=== PATIENT | male | born 1970 | race Caucasian/White ===

== ENCOUNTER 2016-05-20 10:46 | Inpatient (IN) | payer SELFPAY ==
[~2016-05-20] VITALS: Ht 160 cm; Wt 104.7 kg
[~2016-05-20 10:46] MED LIST: /TAMS4CA OR; ALLO300T; AMLO10TA PO; AMLO5TAB2 PO; ASPI81TA85 PO; BIAXINXL PO; BYST2.5T PO; BYST2.5T2 PO; BYSTOLIC; CLARITIN10 PO; CORE6.25 PO; GLUC500T PO; HCTZ25 PO; HYDR25TAB PO; LEVO500T PO; LIPI20TA PO; MOTRIN800 PO; NIZORALSHA TOPICAL; OXYC-208 PO; PRIN10TA PO; Potassium Citrate; SUDAFED PO; TOPROL25 PO; TYLE325T5 PO; VICO5TAB PO; XANA0.25 PO; ZYRTEC PO; potassium citrate
[2016-05-20] MEDS ORDERED: CARVedilol 6.25 MG TAB As Ordered ONE (11:20)
[2016-05-20 11:24] LABS: BASO # 0.1 K/mm3 (0.0-0.2); BASO % 1.3 % (0.0-1.0); EOS # 0.6 K/mm3 (0.0-0.50); LARGE UNSTAINED CELL # 0.2 K/mm3 (0.0-0.4); LARGE UNSTAINED CELL % 1.8 % (0.0-4.0); LYMPH # 2.6 K/mm3 (1.5-4.5); LYMPH % 25.6 % (24.0-44.0); MEAN CORPUSCULAR HEMOGLOBIN 31.7 pg (27.0-33.0); MEAN CORPUSCULAR VOLUME 86.6 fl (80.0-96.0); MONO # 0.5 K/mm3 (0.0-0.8); MONO % 4.8 % (0.0-5.0); NEUTROPHILS # 5.8 K/mm3 (1.8-7.7); NEUTROPHILS % 60.5 % (36.0-66.0); PLATELET COUNT, AUTOMATED 183 k/mm3 (150-450); RED CELL DISTRIBUTION WIDTH 12.9 % (11.5-14.5); WHITE BLOOD COUNT 9.6 K/mm3 (4.0-10.0)
--- NOTE | 2016-05-20 11:33 | REP ---
Chest one-view HISTORY: Shortness of breath Comparison: 02/08/2016 The lungs are clear. The cardiac silhouette is enlarged. The pulmonary vasculature is normal in appearance. Impression: Cardiomegaly. Signed by Lyndon Rene MD 05/20/2016 11:24 A
[2016-05-20] MEDS ORDERED: VALSARTAN 80 MG TAB (DIOVAN) As Ordered ONE (11:38)
[2016-05-20 11:43] LABS: ANION GAP 9 MEQ/L (8-16); BLOOD UREA NITROGEN 14 MG/DL (7-18); CALCIUM LEVEL 9.1 MG/DL (8.5-10.1); CARBON DIOXIDE LEVEL 26 MEQ/L (21-32); CHLORIDE LEVEL 105 MEQ/L (98-107); CREATININE FOR GFR 0.98 MG/DL (0.70-1.30); GLOMERULAR FILTRATION RATE > 60.0 (>60); GLUCOSE, FASTING 245 MG/DL (70-105); POTASSIUM SERUM 4.2 MEQ/L (3.5-5.1); SODIUM LEVEL 140 MEQ/L (136-145)
[2016-05-20 12:00] LABS: MEAN CORPUSCULAR HGB CONC 36.1 g/dl (32.0-36.5)
[2016-05-20] MEDS ORDERED: ISOVUE-370 76% 100ML VIAL (Q9967) As Ordered ONE (12:13)
--- NOTE | 2016-05-20 12:37 | REP ---
Clinical: Acute chest pain and shortness of breath. Technique: Axial contrast enhanced images from the thoracic inlet to the upper abdomen using 100 ml Isovue 370 intravenous contrast material with coronal and sagittal re-formations. Findings: Satisfactory enhancement of the pulmonary vasculature is achieved and no filling defects are identified to suggest pulmonary embolus. Thoracic aorta is normal caliber without aneurysm or dissection. Heart and pericardium are normal. Bilateral lung hawkins are well aerated and clear without acute pulmonary parenchymal consolidation or atelectasis. No nodule or mass lesion. No pleural effusion/reaction. No pneumothorax. No adenopathy. Impression: No evidence for pulmonary embolus. No acute pleuroparenchymal or mediastinal process. Signed by Uche Silva MD 05/20/2016 12:29 P
[2016-05-20] MEDS ORDERED: IPRATROPIUM 0.5MG/ALBUTEROL 2.5MG INH SOL UD 3ML (DUONEB)(J7620) As Ordered ONE (13:28)
[2016-05-20] MEDS ORDERED: ASPIRIN 81 MG CHEW TABLET As Ordered ONE (15:56)
[2016-05-20] MEDS ORDERED: CINN500C9 PO (16:26)
[2016-05-20] MEDS ORDERED: CARV25TA PO (16:26)
[2016-05-20] MEDS ORDERED: GLUC1000 PO (16:26)
[2016-05-20] MEDS ORDERED: VALS1TAB46 PO (16:26)
[2016-05-20] MEDS ORDERED: HYDR25TAB PO (16:26)
[2016-05-20] MEDS ORDERED: SPIR25TA2 PO (16:26)
[2016-05-20] MEDS ORDERED: ONDANSETRON 4MG/2ML VIAL (J2405) IV PRN (17:00)
[2016-05-20] MEDS ORDERED: BISACODYL 5 MG TAB PO PRN (17:00)
[2016-05-20] MEDS ORDERED: MORPHINE 2 MG/ML 1ML SYRINGE IV PRN (17:00)
[2016-05-20] MEDS ORDERED: GLUCOSE 4 GM CHEW TABLET PO PRN (17:15)
[2016-05-20] MEDS ORDERED: GLUCAGON FOR INJ 1 MG VIAL (J1610) SC PRN (17:15)
[2016-05-20] MEDS ORDERED: DEXTROSE 50% 50 ML SYRINGE IV PRN (17:15)
[2016-05-20] MEDS ORDERED: MORPHINE 2 MG/ML 1ML SYRINGE As Ordered ONE (17:44)
[2016-05-20] MEDS ORDERED: LABETALOL HCL 100 MG/20 ML VIAL As Ordered ONE (17:44)
[2016-05-20] MEDS ORDERED: LABETALOL 100 MG TAB As Ordered ONE (17:44)
--- NOTE | 2016-05-20 17:58 | HPE ---
DATE OF ADMISSION: 05/20/2016 PRIMARY CARE PHYSICIAN: None. Patient has lost his medical insurance. DYNAMICS AX DEVELOPER: Dr. Cipriano Li CHIEF COMPLAINT: Shortness of breath. HOSPITALIST INPATIENT ATTENDING: Dr. Carlos Flores HISTORY OF PRESENT ILLNESS: A 46-year-old male with history of congestive heart failure, ejection fraction of 40%. Follows with Dr. Li. Coronary artery disease (CAD), myocardial infarction (SD), diabetes, hypertension, nephrolithiasis, osteoarthritis, bilateral knees, obesity, presented to the emergency room with complaint of shortness of breath. Patient has had cough and cold symptoms for the past 2 months on and off, felt congested, and woke at 1 a.m. this morning when he complained of chest tightness described as a bear hug, accompanied with some diaphoresis and shortness of breath. No medications were taken at home. Patient checked his blood pressure and was 191/121. He had no headaches. No changes in vision. He felt better when he leaned forward on a chair. No epigastric pain, nausea, or vomiting. At 6:30 in the morning, patient rechecked his blood pressure, and it was again elevated, prompting him to present to the emergency room (ER) this morning at 10:46 a.m. He had taken his spironolactone, valsartan, and Coreg. Similar episode in 2014 while he was on vacation and returned emergently for evaluation. Chest x-ray at that time showed pulmonary edema, cardiomegaly. He was found to have hypertensive cardiomyopathy. Ejection fraction was initially 26%, improved with medications to 39%. Dr. Li had recommended automatic implantable cardioverter-defibrillator (AICD) placement. Stress test was negative times two. He was supposed to have a followup around [facility] this past 2015, but patient had no insurance. 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 In the emergency room patient was found to have a blood pressure 182/112. Hospitalist service was called for admission for hypertensive urgency. Due to complaints of chest tightness and tachycardia, CT of chest was performed, which was negative for pulmonary embolism. No other acute pleural, parenchymal, mediastinal process. Lungs are otherwise clear. PAST MEDICAL HISTORY: 1. Congestive heart failure (CHF), ejection fraction 40%. 2. Hypertension. 3. Obstructive sleep apnea. 4. Obesity. 5. Left ventricular hypertrophy with severe systolic/diastolic dysfunction. 6. Pulmonary hypertension. Ejection fraction of 35-40% on 08/24/2014, PAST SURGICAL HISTORY: None. 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 No medical benefits. No recreational drug use. . Full code. FAMILY HISTORY: Mother and father with CAD, SD, diabetes, hypertension, amputations. Mother , age 56. Father , age 67. REVIEW OF SYSTEMS: Per history of present illness (HPI). A 12-point system otherwise negative. PHYSICAL EXAMINATION: Blood pressure 192/112, pulse 118, sinus rhythm, respiratory rate 18, temperature 98.6, 99% on room air. 103.42 kg, 5 feet 3 inches tall. GENERAL: Awake, alert, oriented times three. Pupils are round and reactive to light and accommodation. Extraocular muscles are intact. No jugular venous distention. No thyromegaly. Moist mucous membranes. LUNGS: Clear to auscultation. No wheezes, rales, or rhonchi. HEART: S1, S2, sinus rhythm . ABDOMEN: [place], soft, nontender, nondistended. EXTREMITIES: Trace pitting edema. White count 9.6, hemoglobin 15, hematocrit 42, platelet count 183, 60% neutrophils. Sodium 140, potassium 4.2, chloride 105, bicarbonate 26, BUN 14, creatinine 0.98 , glucose 245. A1c is pending. Lactic acid 1.7. Calcium 9.1. Total CK 95, MB fraction 3.1. Troponin 0.1. BNP of 399. Two sets of blood cultures negative. CT chest: No acute cardiopulmonary process. No pulmonary embolism (PE). EKG: Sinus tachycardia. Ventricular rate of 111. Nonspecific ST-T changes. ASSESSMENT AND PLAN: A 46-year-old male with a history of diabetes, hypertension, hypertensive heart disease, systolic/diastolic heart failure, ejection fraction (EF) of 35-40% on 08/12/[address] Li. Has lost his medical insurance. Nephrolithiasis, obesity, myocardial infarction (SD), osteoarthritis bilaterally , presented to the emergency room with worsening shortness of breath, found to have hypertensive urgency. Patient will be admitted as an inpatient for two midnights , assigned to hospitalist, Dr. Carlos Flores. CURRENT ISSUES: 1. Hypertensive urgency. Patient will be placed on labetalol. Continue on spironolactone, Valsartan. 2. Shortness of breath secondary to hypertensive urgency. 3. Pulmonary embolism (PE) on CT chest study. Cycle cardiac markers every 6 hours. Monitor for acute coronary syndrome, worsening symptoms. No prior history of smoking. No evidence of hypercoagulable state. 4. Hypertensive heart disease with history of congestive heart failure, systolic and diastolic dysfunction, EF of 35%, compensated. The patient has had two negative stress tests. Usually follows with Dr. Li. Patient will be continued on spironolactone, Valsartan. Patient has had negative stress test. Will start on aspirin due to diabetes. 5. Type 2 diabetes. Check A1c. Sliding scale for now. Since patient has received IV contrast dye, will hold off on patient's metformin. Put on sliding scale with coverage. Consistent-carbohydrate diet, no added salt. 6. Deep vein thrombosis (DVT) prophylaxis with Lovenox. MTDD
[2016-05-20 18:14] VITALS: BP 151/94
[2016-05-20 18:30] VITALS: BP 165/106
--- NOTE | 2016-05-20 18:37 | EDDOCDS ---
Physician Documentation [facility] Name: Zhou Grubbs Age: 46 yrs Sex: Male : 1970 Arrival Date: 05/20/2016 Time: 10:46 Bed 13 Private MD: No Pcp Disposition: 05/20/16 15:51 Hospitalization ordered by Gissell Chavez for Inpatient Admission. Preliminary diagnosis is Dyspnea. - Bed requested for M ICU. - Status is Inpatient Admission. mk4 - Condition is Stable. - Problem is new. - Symptoms are unchanged. Historical: - Allergies: Compazinecan't breathe; - Home Meds: 1. metformin 500 mg Oral Tb24 1 tab 2 times per day (Last dose: 05/19/2016) 2. spironolactone 25 mg Oral tab 0.5 tab once daily (Last dose: 05/19/2016) 3. valsartan 80 mg oral tab 1 tab 2 times per day (Last dose: 05/19/2016) 4. carvedilol 25 mg oral tab 1 tab 2 times per day (Last dose: 05/19/2016) - PMHx: Hypertension; Kidney stones; CHF; Myocardial infarction; - PSHx: none; - Social history: Smoking status: Patient states was never smoker of tobacco. No barriers to communication noted, The patient speaks fluent Georgian. - Family history: Not pertinent. - : The pt / caregiver states he / she is not on anticoagulants. Home medication list is obtained from the patient. - Exposure Risk Screening:: None identified. Vital Signs: 05/20 10:48 BP 192 / 112; Pulse 118; Resp 18; Temp 98.6(O); Pulse Ox 99% on R/A; Weight 103.42 kg / ct3 228 lbs (R); Height 5 ft. 3 in. (160.02 cm) (R); Pain 7/10; 10:48 BP 188 / 113 LA Sitting (auto/lg); ct3 11:23 BP 165 / 110 (auto/); mk4 11:23 Pulse 106 MON; Pulse Ox 96% ; mk4 11:29 BP 170 / 118 (auto/); mk4 11:29 Pulse 102 MON; Pulse Ox 96% ; mk4 11:39 BP 171 / 114 (auto/); mk4 11:39 Pulse 106 MON; Pulse Ox 95% ; mk4 11:44 BP 163 / 122 (auto/); mk4 11:44 Pulse 104 MON; Pulse Ox 98% ; mk4 12:14 BP 142 / 99 (auto/); mk4 12:14 Pulse 98 MON; Pulse Ox 96% ; mk4 12:29 BP 128 / 78 (auto/); mk4 12:29 Pulse 94 MON; Pulse Ox 96% ; mk4 12:44 BP 128 / 82 (auto/); mk4 12:44 Pulse 92 MON; mk4 12:59 BP 130 / 83 (auto/); mk4 12:59 Pulse 94 MON; Pulse Ox 95% ; mk4 13:14 BP 138 / 92 (auto/); mk4 13:14 Pulse 90 MON; Pulse Ox 94% ; mk4 13:29 BP 134 / 88 (auto/); mk4 13:29 Pulse 92 MON; Pulse Ox 94% ; mk4 13:44 BP 125 / 85 (auto/); mk4 13:44 Pulse 94 MON; Pulse Ox 95% ; mk4 13:59 BP 141 / 80 (auto/); mk4 13:59 Pulse 92 MON; mk4 14:05 BP 125 / 80; jrd 14:13 Pulse 100 MON; mk4 14:14 BP 142 / 92 (auto/); mk4 14:29 BP 143 / 86 (auto/); mk4 14:29 Pulse 98 MON; mk4 14:44 Pulse 98 MON; mk4 14:44 BP 142 / 89 (auto/); mk4 14:59 BP 142 / 82 (auto/); mk4 14:59 Pulse 96 MON; mk4 15:14 BP 140 / 79 (auto/); mk4 15:14 Pulse 96 MON; mk4 15:29 BP 144 / 95 (auto/); mk4 15:29 Pulse 94 MON; mk4 15:44 BP 147 / 100 (auto/); mk4 15:44 Pulse 96 MON; mk4 15:59 BP 141 / 84 (auto/); mk4 15:59 Pulse 92 MON; Pulse Ox 95% ; mk4 16:14 BP 135 / 82 (auto/); mk4 16:14 Pulse 92 MON; Pulse Ox 94% ; mk4 16:29 BP 151 / 98 (auto/); mk4 16:29 Pulse 96 MON; Pulse Ox 93% ; mk4 16:44 BP 151 / 99 (auto/); mk4 16:44 Pulse 96 MON; Pulse Ox 94% ; mk4 16:49 BP 164 / 105 (auto/); mk4 16:51 Pulse 96 MON; Pulse Ox 94% ; mk4 16:59 BP 154 / 102 (auto/); mk4 16:59 Pulse 92 MON; Pulse Ox 95% ; mk4 17:14 BP 153 / 110 (auto/); mk4 17:14 Pulse 96 MON; Pulse Ox 97% ; mk4 17:29 Pulse 96 MON; Pulse Ox 96% ; mk4 17:29 BP 159 / 108 (auto/); mk4 17:44 BP 152 / 107 (auto/); mk4 17:44 Pulse 92 MON; Pulse Ox 95% ; mk4 17:59 BP 154 / 109 (auto/); mk4 17:59 Pulse 90 MON; Pulse Ox 96% ; mk4 10:48 Body Mass Index 40.39 (103.42 kg, 160.02 cm) ct3 MDM: 11:00 -Blood Culture (Adults Only), peripheral from different site, or from device/port/PICC sd1 etc. if present ordered. 11:00 Chief Engineer Research/Pulse Ox/q 15 min VS ordered. sd1 11:00 IV Saline Lock ordered. sd1 11:00 Oxygen at 4L/Min NC or Home dosage ordered. sd1 11:00 Rhythm Strip to chart ordered. sd1 11:01 B-Type Natiuretic Peptide Ordered. EDMS 11:01 Basic Metabolic Profile Ordered. EDMS 11:01 CBC with Diff Ordered. EDMS 11:01 Cardiac Injury Profile Ordered. EDMS 11:01 Troponin Ordered. EDMS 11:01 -Blood Culture Ordered. EDMS 11:01 Chest, 1 View Ordered. EDMS 11:01 ECG WITH READING ER PHYS+CARDIAG ordered. EDMS 11:07 Lactic Acid (Lucia tube on ice) Ordered. EDMS 11:08 carvedilol 25 mg PO once ordered. sd1 11:08 Losartan 80 mg PO once ordered. sd1 11:15 -Blood Culture (Adults Only), peripheral from different site, or from device/port/PICC lbd etc. if present complete. 11:19 BLOOD CULTURES Ordered. EDMS 11:37 Valsartan 80 mg PO once ordered. dy 12:08 Albuterol-Ipratropium 3 ml Inhalation once ordered. sd1 12:08 B-Type Natiuretic Peptide Reviewed. sd1 12:08 Basic Metabolic Profile Reviewed. sd1 12:08 CBC with Diff Reviewed. sd1 12:08 Troponin Reviewed. sd1 12:08 Cardiac Injury Profile Reviewed. sd1 12:08 Lactic Acid (Lucia tube on ice) Reviewed. sd1 12:10 CT Chest Angio R/O PE Ordered. EDMS 12:49 [facility] Payment Agreement was scanned into [employer] and attached to record. jp5 12:49 Financial registration complete. jp5 13:48 Recheck B/P ordered. sd1 13:48 Chest, 1 View Reviewed. sd1 13:48 CT Chest Angio R/O PE Reviewed. sd1 13:49 Redraw CIP &Troponin (put time in details section) ordered. sd1 13:51 Redraw CIP &Troponin (put time in details section) complete. jlf 13:53 CARDIAC INJURY PROFILE Ordered. EDMS 13:53 TROPONIN Ordered. EDMS 15:19 TROPONIN Reviewed. sd1 15:19 CARDIAC INJURY PROFILE Reviewed. sd1 15:48 Aspirin Chewable Tablet 81 mg PO once ordered. sd1 15:50 REGULAR+DIET ordered. EDMS 17:04 Admission / Observation Status ordered. EDMS 17:04 CONSISTENT CARBOHYDRATES ordered. EDMS 17:04 NO ADDED SALT DIET ordered. EDMS 17:06 ELECTROCARDIOGRAM ADULT ordered. EDMS 17:07 CARDIAC MARKER PANEL Ordered. EDMS 17:07 HEMOGLOBIN A1C Ordered. EDMS 17:41 Written Provider Order was scanned into [employer] and attached to record. lbd 17:56 morphine 2 mg IVP once ordered. mk4 17:56 Labetalol 10 mg IVP at bolus once over 2 mins ordered. mk4 17:57 Labetalol 100 mg PO once ordered. mk4 18:18 ECHOCARD,DOPPLER/COLOR FLOW ordered. EDMS Administered Medications: 11:25 Drug: carvedilol 25 mg [carvedilol 6.25 mg tablet (4 tabs)] Route: PO; dy 11:37 Not Given (wrong drug ordered): Losartan 80 mg PO once dy 11:40 Drug: Valsartan 80 mg [valsartan 80 mg tablet (1 tabs)] Route: PO; mk4 13:31 Drug: Albuterol-Ipratropium 3 ml [ipratropium-albuterol 0.5 mg-3 mg(2.5 mg base)/3 mL js11 nebulization soln (3 mL)] Route: Inhalation; 15:58 Drug: Aspirin 81 mg [aspirin 81 mg chewable tablet (1 tabs)] Route: PO; mk4 17:56 Drug: morphine 2 mg [morphine 2 mg/mL intravenous cartridge (1 mL)] Route: IVP; Site: mk4 left antecubital; 17:56 Drug: Labetalol 10 mg [labetalol 5 mg/mL intravenous solution (2 mL)] Route: IVP; Rate: mk4 bolus; Infused Over: 2 mins; Site: left antecubital; 17:57 Drug: Labetalol 100 mg [labetalol 100 mg tablet (1 tabs)] Route: PO; mk4 Signatures: Dispatcher [employer] EDMS Lesly Collins MD MD sd1 Gloria Mathews, Lead Former Unit lbd Ritchie Moreira RN Cipriano Rodrigues RN RN dy King, Margaret, RN RN mk4 Meli Browning, DIRECTOR COMMUNITY CENTER DIRECTOR [facility]ENTER Renee Catalan jp5 Patrick Gutierrez, RN Dillon Villanueva mts [id number] The chart was reviewed and I authenticate all verbal orders and agree with the evaluation and treatment provided.Corrections: (The following items were deleted from the chart) 17:08 17:04 CARDIAC MARKER PANEL ordered. EDMD EDMS Attachments: 12:49 [facility] Payment Agreement jp5 17:41 Written Provider Order lbd MTDD
--- NOTE | 2016-05-20 18:37 | EDDOCDS ---
Nurse's Notes [facility] Name: Zhou Grubbs Age: 46 yrs Sex: Male : 1970 Arrival Date: 05/20/2016 Time: 10:46 Bed 13 Private MD: No Pcp Diagnosis: Dyspnea Presentation: 05/20 10:55 Presenting complaint: Patient states: Increased difficulty breathing starting at 1am dwg today. Difficulty taking a deep breath. Adult Sepsis Screening: The patient does not have new or worsening altered mentation. Patient's respiratory rate is less than 22. Systolic blood pressure is greater than 100. Patient has a qSOFA score of 0- Negative Sepsis Screen. Suicide/Homicide risk assessment- the patient denies having any suicidal and/or homicidal ideations and does not present with any other emotional, behavioral or mental health complaints. Status: Patient is not a appliance servicer or dependent. Transition of care: patient was not received from another setting of care. 10:55 Acuity: NHUNG Level 3 dwg 10:55 Method Of Arrival: Wheelchair dwg Triage Assessment: 10:58 General: Appears in no apparent distress. Pain: Pain currently is 6 out of 10 on a pain dwg scale. HIV screening NA for this visit Offered previously. Historical: - Allergies: Compazinecan't breathe; - Home Meds: 1. metformin 500 mg Oral Tb24 1 tab 2 times per day (Last dose: 05/19/2016) 2. spironolactone 25 mg Oral tab 0.5 tab once daily (Last dose: 05/19/2016) 3. valsartan 80 mg oral tab 1 tab 2 times per day (Last dose: 05/19/2016) 4. carvedilol 25 mg oral tab 1 tab 2 times per day (Last dose: 05/19/2016) - PMHx: Hypertension; Kidney stones; CHF; Myocardial infarction; - PSHx: none; - Social history: Smoking status: Patient states was never smoker of tobacco. No barriers to communication noted, The patient speaks fluent Kyrgyz. - Family history: Not pertinent. - : The pt / caregiver states he / she is not on anticoagulants. Home medication list is obtained from the patient. - Exposure Risk Screening:: None identified. Screenin:00 Screening information is obtained from the patient. Fall risk: No risks identified. mk4 Assistance ADL's: requires no assistance with activities of daily living. Abuse/DV Screen: The patient / caregiver reports he/she is: not in a situation that causes fear, pain or injury. Nutritional screening: No deficits noted. Advance Directives: Currently, there is no health care proxy. There is no active DNR order. There is no living will. There is no Power of Telecommunications Line Installer. Advance directive information has not previously been placed in an [facility] medical record. Further advance directive information is declined. home support is adequate. Assessment: 11:00 General: Appears distressed, Behavior is anxious. Cardiovascular: No deficits noted. mk4 Chest pain states he had a brief episode of chest pain at 0100 lasting about an hour denies chest pain now. Respiratory: Airway is patent Respiratory effort is even, labored, Respiratory pattern is regular, Breath sounds with wheezes expiratory. 11:55 Reassessment: Patient states feeling better. Patient states symptoms have improved. mk4 General: family at bedside. Respiratory: Airway is patent Respiratory effort is even, Respiratory pattern is regular, Breath sounds with wheezes expiratory. 13:10 Neurological: Level of Consciousness is awake, alert. Cardiovascular: Chest pain is mk4 denied. Respiratory: Airway is patent Respiratory effort is even. 14:16 General: Appears. Respiratory: Airway is patent Respiratory effort is even, unlabored, mk4 Respiratory pattern is regular. Derm: Skin is intact, is healthy with good turgor, Skin is pink, warm & dry. 14:43 General: Appears comfortable. mk4 15:58 General: Appears in no apparent distress, comfortable. Cardiovascular: Chest pain is mk4 denied. Respiratory: Airway is patent Respiratory effort is even, unlabored, Respiratory pattern is regular. 16:27 General: Appears in no apparent distress, comfortable, Behavior is cooperative, mk4 pleasant, quiet. Neurological: Level of Consciousness is awake, alert. Respiratory: Airway is patent Respiratory effort is even, unlabored, labored. 17:40 General: Appears in no apparent distress, comfortable, Behavior is cooperative. mk4 18:18 General: Appears in no apparent distress, comfortable, Behavior is cooperative. mk4 Neurological: Level of Consciousness is awake, alert. Respiratory: Reports shortness of breath at rest. Vital Signs: 10:48 BP 192 / 112; Pulse 118; Resp 18; Temp 98.6(O); Pulse Ox 99% on R/A; Weight 103.42 kg ct3 (R); Height 5 ft. 3 in. (160.02 cm) (R); Pain 7/10; 10:48 BP 188 / 113 LA Sitting (auto/lg); ct3 11:23 BP 165 / 110 (auto/); mk4 11:23 Pulse 106 MON; Pulse Ox 96% ; mk4 11:29 BP 170 / 118 (auto/); mk4 11:29 Pulse 102 MON; Pulse Ox 96% ; mk4 11:39 BP 171 / 114 (auto/); mk4 11:39 Pulse 106 MON; Pulse Ox 95% ; mk4 11:44 BP 163 / 122 (auto/); mk4 11:44 Pulse 104 MON; Pulse Ox 98% ; mk4 12:14 BP 142 / 99 (auto/); mk4 12:14 Pulse 98 MON; Pulse Ox 96% ; mk4 12:29 BP 128 / 78 (auto/); mk4 12:29 Pulse 94 MON; Pulse Ox 96% ; mk4 12:44 BP 128 / 82 (auto/); mk4 12:44 Pulse 92 MON; mk4 12:59 BP 130 / 83 (auto/); mk4 12:59 Pulse 94 MON; Pulse Ox 95% ; mk4 13:14 BP 138 / 92 (auto/); mk4 13:14 Pulse 90 MON; Pulse Ox 94% ; mk4 13:29 BP 134 / 88 (auto/); mk4 13:29 Pulse 92 MON; Pulse Ox 94% ; mk4 13:44 BP 125 / 85 (auto/); mk4 13:44 Pulse 94 MON; Pulse Ox 95% ; mk4 13:59 BP 141 / 80 (auto/); mk4 13:59 Pulse 92 MON; mk4 14:05 BP 125 / 80; jrd 14:13 Pulse 100 MON; mk4 14:14 BP 142 / 92 (auto/); mk4 14:29 BP 143 / 86 (auto/); mk4 14:29 Pulse 98 MON; mk4 14:44 Pulse 98 MON; mk4 14:44 BP 142 / 89 (auto/); mk4 14:59 BP 142 / 82 (auto/); mk4 14:59 Pulse 96 MON; mk4 15:14 BP 140 / 79 (auto/); mk4 15:14 Pulse 96 MON; mk4 15:29 BP 144 / 95 (auto/); mk4 15:29 Pulse 94 MON; mk4 15:44 BP 147 / 100 (auto/); mk4 15:44 Pulse 96 MON; mk4 15:59 BP 141 / 84 (auto/); mk4 15:59 Pulse 92 MON; Pulse Ox 95% ; mk4 16:14 BP 135 / 82 (auto/); mk4 16:14 Pulse 92 MON; Pulse Ox 94% ; mk4 16:29 BP 151 / 98 (auto/); mk4 16:29 Pulse 96 MON; Pulse Ox 93% ; mk4 16:44 BP 151 / 99 (auto/); mk4 16:44 Pulse 96 MON; Pulse Ox 94% ; mk4 16:49 BP 164 / 105 (auto/); mk4 16:51 Pulse 96 MON; Pulse Ox 94% ; mk4 16:59 BP 154 / 102 (auto/); mk4 16:59 Pulse 92 MON; Pulse Ox 95% ; mk4 17:14 BP 153 / 110 (auto/); mk4 17:14 Pulse 96 MON; Pulse Ox 97% ; mk4 17:29 Pulse 96 MON; Pulse Ox 96% ; mk4 17:29 BP 159 / 108 (auto/); mk4 17:44 BP 152 / 107 (auto/); mk4 17:44 Pulse 92 MON; Pulse Ox 95% ; mk4 17:59 BP 154 / 109 (auto/); mk4 17:59 Pulse 90 MON; Pulse Ox 96% ; mk4 10:48 Body Mass Index 40.39 (103.42 kg, 160.02 cm) ct3 Vitals: 10:48 Log In Time: May 20, 2016 at 10:46. ct3 10:48 RN notified that patient meets Red Flag criteria. ct3 ED Course: 10:47 Patient visited by Irlanda Block PCA. ct3 10:47 Patient moved to Waiting ct3 10:48 No Pcp is Private Physician. ct3 10:56 Triage Initiated dwg 10:59 Patient moved to 13 dw 11:00 The patient / caregiver is instructed regarding the plan of care and ED course. mk4 11:00 bus driver/monitor on. Pulse ox on. NIBP on. mk4 11:00 No procedures done that require assistance. mk4 11:02 Lesly Collins MD is Attending Physician. sd1 11:02 Patient visited by Lesly Collins MD. sd1 11:15 Inserted saline lock: 18 gauge in left antecubital area and blood collected. The dy patient tolerated the procedure well. 11:17 Patient visited by Meli Browning PCA. jlf 11:17 Lactic Acid (Lucia tube on ice) Sent. dy 11:17 -Blood Culture Sent. dy 11:17 B-Type Natiuretic Peptide Sent. dy 11:17 Basic Metabolic Profile Sent. dy 11:17 CBC with Diff Sent. dy 11:17 Cardiac Injury Profile Sent. dy 11:17 Troponin Sent. dy 11:18 EKG done. (by ED staff). Reviewed by Lesly Collins MD. jlf 11:55 Patient visited by Celi Wynn RN. mk4 12:20 Chest, 1 View Returned. EDMS 12:31 Patient visited by Celi Wynn RN. mk4 12:49 [facility] Payment Agreement was scanned into [employer] and attached to record. jp5 13:06 Patient visited by Meli Browning PCA. jlf 13:16 CT Chest Angio R/O PE Returned. EDMS 13:39 Patient visited by Celi Wynn RN. mk4 14:04 Patient visited by Meli Browning PCA. jlf 14:05 Patient visited by Escobar Austin PCA. jrd 14:32 Patient visited by Meli Browning PCA. jlf 15:15 Patient visited by Celi Wynn RN. mk4 15:50 Gissell Chavez is Hospitalizing Provider. sd1 17:41 Written Provider Order was scanned into [employer] and attached to record. lbd Administered Medications: 11:25 Drug: carvedilol 25 mg [carvedilol 6.25 mg tablet (4 tabs)] Route: PO; dy 11:37 Not Given (wrong drug ordered): Losartan 80 mg PO once dy 11:40 Drug: Valsartan 80 mg [valsartan 80 mg tablet (1 tabs)] Route: PO; mk4 13:31 Drug: Albuterol-Ipratropium 3 ml [ipratropium-albuterol 0.5 mg-3 mg(2.5 mg base)/3 mL nebulization soln (3 mL)] Route: Inhalation; 15:58 Drug: Aspirin 81 mg [aspirin 81 mg chewable tablet (1 tabs)] Route: PO; mk4 17:56 Drug: morphine 2 mg [morphine 2 mg/mL intravenous cartridge (1 mL)] Route: IVP; Site: mk4 left antecubital; 17:56 Drug: Labetalol 10 mg [labetalol 5 mg/mL intravenous solution (2 mL)] Route: IVP; Rate: mk4 bolus; Infused Over: 2 mins; Site: left antecubital; 17:57 Drug: Labetalol 100 mg [labetalol 100 mg tablet (1 tabs)] Route: PO; mk4 RT: 13:31 Initial Med Neb Given as ordered Patient was instructed and evaluated on procedure [id number] Patient tolerated procedure well without adverse effect. Respiratory: Breath sounds are diminished bilaterally. Order Results: Lab Order: B-Type Natiuretic Peptide; SPEC'M 05/20/16 11:15 Test: BRAIN NATRIURETIC PEPTIDE; Value: 399; Range: <100; Abnormal: Above high normal; Units: PG/ML; Status: F Lab Order: Basic Metabolic Profile; SPEC'M 05/20/16 11:15 Test: GLUCOSE, FASTING; Value: 245; Range: 70-105; Abnormal: Above high normal; Units: MG/DL; Status: F Test: BLOOD UREA NITROGEN; Value: 14; Range: 7-18; Units: MG/DL; Status: F Test: CREATININE FOR GFR; Value: 0.98; Range: 0.70-1.30; Units: MG/DL; Status: F Test: GLOMERULAR FILTRATION RATE; Value: > 60.0; Range: >60; Status: F Test: SODIUM LEVEL; Value: 140; Range: 136-145; Units: MEQ/L; Status: F Test: POTASSIUM SERUM; Value: 4.2; Range: 3.5-5.1; Units: MEQ/L; Status: F Test: CHLORIDE LEVEL; Value: 105; Range: 98-107; Units: MEQ/L; Status: F Test: CARBON DIOXIDE LEVEL; Value: 26; Range: 21-32; Units: MEQ/L; Status: F Test: ANION GAP; Value: 9; Range: 8-16; Units: MEQ/L; Status: F Test: CALCIUM LEVEL; Value: 9.1; Range: 8.5-10.1; Units: MG/DL; Status: F Test Note: ; Units are mL/min/1.73 m2 Chronic Kidney Disease Staging per NKF: Stage I & II GFR >=60 Normal to Mildly Decreased Stage III GFR 30-59 Moderately Decreased Stage IV GFR 15-29 Severely Decreased Stage V GFR <15 Very Little GFR Left ESRD GFR <15 on OFFICE NURSE PRACTITIONER Lab Order: CBC with Diff; SPEC'M 05/20/16 11:15 Test: WHITE BLOOD COUNT; Value: 9.6; Range: 4.0-10.0; Units: K/mm3; Status: F Test: RED BLOOD COUNT; Value: 4.92; Range: 4.30-6.10; Units: M/mm3; Status: F Test: HEMOGLOBIN; Value: 15.6; Range: 14.0-18.0; Units: g/dl; Status: F Test: HEMATOCRIT; Value: 42.6; Range: 42.0-52.0; Units: %; Status: F Test: MEAN CORPUSCULAR VOLUME; Value: 86.6; Range: 80.0-96.0; Units: fl; Status: F Test: MEAN CORPUSCULAR HEMOGLOBIN; Value: 31.7; Range: 27.0-33.0; Units: pg; Status: F Test: MEAN CORPUSCULAR HGB CONC; Value: 36.1; Range: 32.0-36.5; Units: g/dl; Status: F Test: RED CELL DISTRIBUTION WIDTH; Value: 12.9; Range: 11.5-14.5; Units: %; Status: F Test: PLATELET COUNT, AUTOMATED; Value: 183; Range: 150-450; Units: k/mm3; Status: F Test: NEUTROPHILS %; Value: 60.5; Range: 36.0-66.0; Units: %; Status: F Test: LYMPH %; Value: 25.6; Range: 24.0-44.0; Units: %; Status: F Test: MONO %; Value: 4.8; Range: 0.0-5.0; Units: %; Status: F Test: EOS %; Value: 6.0; Range: 0.0-3.0; Abnormal: Above high normal; Units: %; Status: F Test: BASO %; Value: 1.3; Range: 0.0-1.0; Abnormal: Above high normal; Units: %; Status: F Test: LARGE UNSTAINED CELL %; Value: 1.8; Range: 0.0-4.0; Units: %; Status: F Test: NEUTROPHILS #; Value: 5.8; Range: 1.8-7.7; Units: K/mm3; Status: F Test: LYMPH #; Value: 2.6; Range: 1.5-4.5; Units: K/mm3; Status: F Test: MONO #; Value: 0.5; Range: 0.0-0.8; Units: K/mm3; Status: F Test: EOS #; Value: 0.6; Range: 0.0-0.50; Abnormal: Above high normal; Units: K/mm3; Status: F Test: BASO #; Value: 0.1; Range: 0.0-0.2; Units: K/mm3; Status: F Test: LARGE UNSTAINED CELL #; Value: 0.2; Range: 0.0-0.4; Units: K/mm3; Status: F Lab Order: Cardiac Injury Profile; SPEC'M 05/20/16 11:15 Test: CPK CREATINE PHOSPHOKINASE; Value: 111; Range: 39-308; Units: U/L; Status: F Test: CK-MB VALUE MASS; Value: 3.5; Range: 0.0-3.6; Units: NG/ML; Status: F Test: MB/CK RELATIVE INDEX; Value: 3.15; Range: < OR =4; Status: F Test Note: ; DIAGNOSIS CRITERIA MMB ng/ml Relative Index (RI) NON-AMI < or = 5 N/A LUCIA ZONE > 5 < or = 4 AMI > 5 > 4 Lab Order: Troponin; SPEC'M 05/20/16 11:15 Test: TROPONIN I; Value: 0.20; Range: < 0.10; Abnormal: Above high normal; Units: NG/ML; Status: F Test Note: ; Troponin I Reference Interval for IPS Group LOCI: 99th Percentile= 0.00-0.045 ng/ml Risk Stratification: <= 0.10 ng/ml Decreased Risk for Adverse Clinical Events. 0.10-1.50 ng/ml Increased Risk for Adverse Clinical Events. Evaluation of additional criterion and/or repeat testing in 2-6 hours is suggested to rule out myocardial damage. >= 1.50 ng/ml Indicative of Myocardial Injury. Lab Order: Lactic Acid (Lucia tube on ice); SPEC'M 05/20/16 11:15 Test: LACTIC ACID LEVEL, LACTATE; Value: 1.7; Range: 0.4-2.0; Units: MMOL/L; Status: F Lab Order: CARDIAC INJURY PROFILE; SPEC'M 05/20/16 14:01 Test: CPK CREATINE PHOSPHOKINASE; Value: 95; Range: 39-308; Units: U/L; Status: F Test: CK-MB VALUE MASS; Value: 3.1; Range: 0.0-3.6; Units: NG/ML; Status: F Test: MB/CK RELATIVE INDEX; Value: 3.26; Range: < OR =4; Status: F Test Note: ; DIAGNOSIS CRITERIA MMB ng/ml Relative Index (RI) NON-AMI < or = 5 N/A LUCIA ZONE > 5 < or = 4 AMI > 5 > 4 Lab Order: TROPONIN; SPEC'M 05/20/16 14:01 Test: TROPONIN I; Value: 0.19; Range: < 0.10; Abnormal: Above high normal; Units: NG/ML; Status: F Test Note: ; Troponin I Reference Interval for IPS Group LOCI: 99th Percentile= 0.00-0.045 ng/ml Risk Stratification: <= 0.10 ng/ml Decreased Risk for Adverse Clinical Events. 0.10-1.50 ng/ml Increased Risk for Adverse Clinical Events. Evaluation of additional criterion and/or repeat testing in 2-6 hours is suggested to rule out myocardial damage. >= 1.50 ng/ml Indicative of Myocardial Injury. Radiology Order: Chest, 1 View Test: Chest, 1 View REASON FOR EXAMINATION: Shortness of Breath; Chest one-view; ; HISTORY: Shortness of breath; ; Comparison: 02/08/2016; ; The lungs are clear. The cardiac silhouette is enlarged. The pulmonary; vasculature is normal in appearance.; ; Impression: Cardiomegaly.; ; ; Signed by; Lyndon Rene MD 05/20/2016 11:24 A; Radiology Order: CT Chest Angio R/O PE Test: CT Chest Angio R/O PE REASON FOR EXAMINATION: Shortness of Breath; Clinical: Acute chest pain and shortness of breath.; ; Technique: Axial contrast enhanced images from the thoracic inlet to the upper; abdomen using 100 ml Isovue 370 intravenous contrast material with coronal and; sagittal re-formations.; ; Findings: Satisfactory enhancement of the pulmonary vasculature is achieved and; no filling defects are identified to suggest pulmonary embolus. Thoracic aorta; is normal caliber without aneurysm or dissection. Heart and pericardium are; normal. Bilateral lung hawkins are well aerated and clear without acute pulmonary; parenchymal consolidation or atelectasis. No nodule or mass lesion. No pleural; effusion/reaction. No pneumothorax. No adenopathy.; ; Impression:; No evidence for pulmonary embolus.; No acute pleuroparenchymal or mediastinal process.; ; ; Signed by; Uche Silva MD 05/20/2016 12:29 P; Outcome: 15:51 Decision to Hospitalize by Provider. sd1 18:06 Discharge Assessment: Patient awake, alert and oriented x 3. No cognitive and/or [facility] functional deficits noted. Patient verbalized understanding of disposition instructions. Patient awake and alert. Condition: good Condition: stable. 18:07 Discharge Assessment: patient administered narcotics - yes. Patient was admitted to the [address] or transferred to another facility. The following High Risk Discharge criteria are identified: None. CT Study completed. 18:18 Admission hand-off: Report called to shital in ICU. Property :Personal belongings [facility] accompany Pt. 18:35 Patient left the ED. [facility] Signatures: Dispatcher [employer] EDMS Lesly Collins MD MD sd1 Gloria Mathews, Division Plant Engineer Unit lbd Ritchie Moreira RN RN dwg Youngs, David, RN RN Irlanda Marrero, HOT STAMP OPERATOR HOT STAMP OPERATOR ct3 Dillon Busch js11 Celi Wynn RN RN mk4 Meli Browning, HOT STAMP OPERATOR HOT STAMP OPERATOR jlf Escobar Austin, HOT STAMP OPERATOR HOT STAMP OPERATOR Renee Poe jp5 Corrections: (The following items were deleted from the chart) 17:43 17:41 General: Appears mk4 mk4 MTDD
[2016-05-20] MEDS ORDERED: SODIUM CHLORIDE NASAL 0.65% SPRAY BTL (OCEAN) PRN (18:45)
[2016-05-20] MEDS ORDERED: FUROSEMIDE 40 MG/4 ML VIAL (J1940) IV ONE (18:45)
[2016-05-20] MEDS: HumaLOG INSULIN (NovoLOG) PER UNIT SC SCH ×2 (18:50→20:43)
[2016-05-20] MEDS: hydroCHLOROthiazide 25 MG TAB PO SCH (18:51)
[2016-05-20] MEDS: ENOXAPARIN 40 MG/0.4 ML SYRINGE (J1650) SC SCH (18:51)
[2016-05-20] MEDS: SPIRONOLACTONE 25 MG TAB PO SCH (18:51)
[2016-05-20 20:00] VITALS: BP 139/91
--- NOTE | 2016-05-20 20:00 | ECGEPIP ---
Stationary ECG Study [facility] - ED Test Date: 2016-05-20 Pat Name: DAVE FALLON Department: Room: - Gender: M Critical Power Technician: mag : 1970 Requested By: Lesly Collins Order Number: [id number] Reading MD: Lesly Collins Measurements Intervals [place] Rate: 111 P: 43 SC: 149 QRS: -3 QRSD: 85 T: 10 QT: 303 QTc: 412 Interpretive Statements SINUS TACHYCARDIA NONSPECIFIC ST & T-WAVE ABNORMALITY ABNORMAL RHYTHM ECG DELAYED R PROGESSION LVH ?PRIOR INFERIOR WI Electronically Signed On 05-20-2016 19:59:51 EST by Lesly Collins
[2016-05-20] MEDS: VALSARTAN 80 MG TAB (DIOVAN) PO SCH (20:43)
[2016-05-20] MEDS ORDERED: CARVedilol 12.5 MG TAB PO SCH (21:00)
[2016-05-20] MEDS ORDERED: OXYMETAZOLINE NASAL SPRAY (AFRIN) PRN (21:00)
[2016-05-20 21:45] VITALS: BP 142/83
[2016-05-20] MEDS: LORazepam 0.5 MG TAB PO PRN (21:46)
[2016-05-20] MEDS: LABETALOL 100 MG TAB PO SCH (21:46)
[2016-05-20 23:42] VITALS: BP 129/61
[2016-05-21] VITALS (7 sets, daily range): BP systolic 121–168; BP diastolic 74–84
[2016-05-21] MEDS: LABETALOL 100 MG TAB PO SCH ×2 (05:14→13:48)
[2016-05-21 05:39] LABS: MEAN CORPUSCULAR HEMOGLOBIN 32.1 pg (27.0-33.0); MEAN CORPUSCULAR VOLUME 89.2 fl (80.0-96.0); RED CELL DISTRIBUTION WIDTH 12.4 % (11.5-14.5); WHITE BLOOD COUNT 7.3 K/mm3 (4.0-10.0)
[2016-05-21 06:07] LABS: ANION GAP 10 MEQ/L (8-16); BLOOD UREA NITROGEN 17 MG/DL (7-18); CALCIUM LEVEL 8.4 MG/DL (8.5-10.1); CARBON DIOXIDE LEVEL 29 MEQ/L (21-32); CHLORIDE LEVEL 99 MEQ/L (98-107); CREATININE FOR GFR 0.98 MG/DL (0.70-1.30); GLOMERULAR FILTRATION RATE > 60.0 (>60); GLUCOSE, FASTING 206 MG/DL (70-105); POTASSIUM SERUM 3.8 MEQ/L (3.5-5.1); SODIUM LEVEL 138 MEQ/L (136-145)
[2016-05-21 07:41] LABS: MAGNESIUM LEVEL 1.7 MG/DL (1.8-2.4)
[2016-05-21] MEDS: HumaLOG INSULIN (NovoLOG) PER UNIT SC SCH ×4 (07:43→20:46)
[2016-05-21] MEDS: LORazepam 0.5 MG TAB PO PRN ×2 (07:44→20:46)
[2016-05-21] MEDS: SPIRONOLACTONE 25 MG TAB PO SCH (08:32)
[2016-05-21] MEDS: hydroCHLOROthiazide 25 MG TAB PO SCH (08:32)
[2016-05-21] MEDS: VALSARTAN 80 MG TAB (DIOVAN) PO SCH ×2 (08:32→20:47)
[2016-05-21] MEDS: ASPIRIN 81 MG CHEW TABLET PO SCH (08:32)
[2016-05-21] MEDS: ACETAMINOPHEN TAB 650MG DOSE (2X325MG) PO PRN (08:33)
[2016-05-21] MEDS: FLUTICASONE PROP 0.05% NASAL SPRAY 16 GM (FLONASE) SCH ×2 (09:00→20:48)
[2016-05-21] MEDS: AUGMENTIN 875 MG TAB PO SCH ×2 (09:00→20:46)
--- NOTE | 2016-05-21 10:37 | ECGEPIP ---
Stationary ECG Study [facility] Test Date: 2016-05-21 Pat Name: DAVE FALLON Department: Room: Z2859-01 Gender: M House Superintendent: MARIBEL : 1970 Requested By: LOGAN Espinoza Order Number: [id number] Reading MD: Cipriano Guerin Measurements Intervals [place] Rate: 84 P: 48 PA: 167 QRS: 2 QRSD: 92 T: 66 QT: 388 QTc: 461 Interpretive Statements SINUS RHYTHM rate decreased from tracing done 05/20/16 Prolonged QTc Inferior Q waves of uncertain significance Nonspecific T wave abnormality Electronically Signed On 05-21-2016 10:36:59 EST by Cipriano Guerin
[2016-05-21] MEDS ORDERED: FUROSEMIDE 20 MG/2 ML VIAL (J1940) IV ONE (10:45)
[2016-05-21 15:27] LABS: ANION GAP 9 MEQ/L (8-16); BLOOD UREA NITROGEN 20 MG/DL (7-18); CARBON DIOXIDE LEVEL 30 MEQ/L (21-32); CHLORIDE LEVEL 97 MEQ/L (98-107); CREATININE FOR GFR 1.12 MG/DL (0.70-1.30); GLOMERULAR FILTRATION RATE > 60.0 (>60); GLUCOSE, FASTING 228 MG/DL (70-105); MAGNESIUM LEVEL 1.8 MG/DL (1.8-2.4); POTASSIUM SERUM 3.8 MEQ/L (3.5-5.1); SODIUM LEVEL 136 MEQ/L (136-145)
--- NOTE | 2016-05-21 16:10 | IPNPDOC ---
Text Note Date of Service The patient was seen on 05/21/16 at 16:02. NOTE Subjective: Pt states his SOB has improved this morning. Denies CP/ Palpitations. In the afternoon, he had an episode of dyspnea, which was acute in onset with associated 11 beats V. tach. Objective: Vitals: (see below) General: No acute distress, laying comfortably in bed. HEENT: Moist mucous membranes. Neck: No JVD or lymphadenopathy Cardiac: RRR, No murmurs Pulm: Coarse crackles at the bases b/l. No wheezing, no rhonchi Abd: NT/ND + BS Ext: Trace edema BLE. No cyanosis Labs (see below) Images: CXR 05/20/16 Impression: Cardiomegaly. CTA 05/20/16 Impression: No evidence for pulmonary embolus. No acute pleuroparenchymal or mediastinal process. Assessment/Plan 1. Acute Decompensated Systolic Heart Failure, Recent EF noted to be 35-40% per medical records. Prior CO per medical records. Patient was also hypertensive on presentation. Blood pressure is better controlled with current regimen. His shortness breath has improved. We'll continue Lasix, beta omar, valsartan, spironolactone. Apparently patient has been followed by Dr. Li with a plan for an AICD before he lost his insurance, however when I spoke to , he said that the patient has been discharged in the clinic. Will likely need a LifeVest before discharge until he is able to get the AICD. 2. Ventricular tachycardia- patient had symptomatic episode today with 11 beats. Potassium and magnesium have been replaced. No acute ST changes. Echocardiogram today. Patient will be evaluated by Dr. Phelps, with recommendations to increase labetalol to 100 mg twice a day. If the patient's blood pressure does drop, we will discontinue HCTZ. 3. Hypertensive urgency- better controlled with current regimen. 4. Type 2 diabetes mellitus A1c 7.4. Sliding scale insulin as well as consistent carbohydrate diet. Metformin on hold. 5. Acute sinusitis- on Augmentin. DVT prophy: Lovenox VS,Fishbone, I+O VS, Fishbone, I+O Laboratory Tests 05/21/16 05:08 Calcium Level 8.4 L, Total Creatine Kinase 76, Red Blood Count 4.66, Mean Corpuscular Volume 89.2, Mean Corpuscular Hemoglobin 32.1, Mean Corpuscular Hemoglobin Concent 36.0, Red Cell Distribution Width 12.4 05/21/16 14:59 Calcium Level 9.0 Vital Signs Date Time Temp Pulse Resp B/P Pulse Ox O2 Delivery O2 Flow Rate FiO2 05/21/16 14:19 106 22 121/84 97 Nasal Cannula 1.0 05/21/16 12:00 97.4 I&O- Last 24 Hours up to 6 AM 05/21/16 06:00 Intake Total 1680 ml Output Total 2100 ml Balance -420 ml ELLYN SIMMS MD May 21, 2016 16:10
[2016-05-21] MEDS ORDERED: MAG SULF 1GM/100ML (MAG RUN) 1 GM in APPROPRIATE DILUENT 1 EA IV ONE (17:00)
--- NOTE | 2016-05-21 17:35 | ECGEPIP ---
Stationary ECG Study [facility] Test Date: 2016-05-21 Pat Name: DAVE FALLON Department: Room: B0167-80 Gender: M Tank Calibrator: : 1970 Requested By: ELLYN SIMMS Order Number: [id number] Reading MD: Cipriano Guerin Measurements Intervals [place] Rate: 99 P: 47 NV: 159 QRS: 16 QRSD: 98 T: 125 QT: 353 QTc: 454 Interpretive Statements SINUS RHYTHM POSSIBLE LEFT ATRIAL ENLARGEMENT Inferior Q waves of uncertain significance Nonspecific ST-T wave abnormalities Electronically Signed On 05-21-2016 17:35:08 EST by Cipriano Guerin
[2016-05-21] MEDS: ENOXAPARIN 40 MG/0.4 ML SYRINGE (J1650) SC SCH (17:50)
[2016-05-21] MEDS ORDERED: POTASSIUM CHLORIDE 10 MEQ SR TABLET PO ONE (18:00)
[2016-05-21] MEDS: LABETALOL 200 MG TAB PO SCH (20:47)
--- NOTE | 2016-05-21 23:02 | ECHO ---
DATE OF PROCEDURE: 05/21/2016 REFERRING PHYSICIAN: Gissell Chavez MD INDICATION: Dyspnea. HEIGHT: 160 cm WEIGHT: 103 kg MEASUREMENTS: Left atrium: 4.7 cm Ventricular septum: 1.25 cm Posterior wall: 1.39 cm Left ventricle diastole: 5.4 cm Aortic root: 2.9 cm LVOT: 2.7 cm Inferior vena cava: 2.1 cm DOPPLER MEASUREMENTS: Aortic valve velocity: 136 cm/s LVOT velocity: 99.4 cm/s LVOT VTI: 13.1 cm Very mild mitral regurgitation. Mitral E velocity: 53.2 cm/s Mitral A velocity: 89/9 cm/s Pulmonary artery systolic pressure: 19 mmHg by pulmonary acceleration time method. MITRAL ANNULAR TISSUE DOPPLER: E prime septal: 6.4 cm/s E prime lateral: 7.5 cm/s DESCRIPTION: Rhythm was mild sinus tachycardia. No pericardial effusion. This was a moderately technically difficult echocardiogram. This is a 2D, M-mode, color flow Doppler and pulse wave Doppler examination that included mitral annular tissue Doppler. CONCLUSIONS: 1. Mild concentric left ventricle hypertrophy. Severe reduction in overall LV systolic function. Left ventricular ejection fraction (LVEF) 30% by visual estimate. Multiple regional wall motion abnormalities. Grade I LV diastolic dysfunction. Probable akinesis involving the anterior wall from base to apex, anteroseptal region and intraseptal region from base to apex and the entire left ventricle apex. The inferior wall was probably hypokinetic from base to apex. The basal and mid anterolateral segments were normal kinetic. The basal inferolateral segment was normal kinetic and the mid inferolateral segment was probably hypokinetic. No LV thrombus. 2. Moderate left atrial dilatation. 3. Structurally and functionally normal cardiac valves. 4. Suggestive of normal pulmonary artery systolic pressure.
[2016-05-22] VITALS: BP 111/69
[2016-05-22 04:00] VITALS: BP 126/83
[2016-05-22 05:28] LABS: MAGNESIUM LEVEL 1.9 MG/DL (1.8-2.4)
[2016-05-22 06:12] LABS: ANION GAP 9 MEQ/L (8-16); BLOOD UREA NITROGEN 21 MG/DL (7-18); CALCIUM LEVEL 8.8 MG/DL (8.5-10.1); CARBON DIOXIDE LEVEL 27 MEQ/L (21-32); CHLORIDE LEVEL 103 MEQ/L (98-107); CREATININE FOR GFR 1.06 MG/DL (0.70-1.30); GLOMERULAR FILTRATION RATE > 60.0 (>60); GLUCOSE, FASTING 224 MG/DL (70-105); POTASSIUM SERUM 4.6 MEQ/L (3.5-5.1); SODIUM LEVEL 139 MEQ/L (136-145)
[2016-05-22 06:17] LABS: MEAN CORPUSCULAR HEMOGLOBIN 32.6 pg (27.0-33.0); MEAN CORPUSCULAR HGB CONC 36.4 g/dl (32.0-36.5); MEAN CORPUSCULAR VOLUME 89.7 fl (80.0-96.0); RED CELL DISTRIBUTION WIDTH 13.1 % (11.5-14.5); WHITE BLOOD COUNT 7.7 K/mm3 (4.0-10.0)
[2016-05-22] MEDS: LORazepam 0.5 MG TAB PO PRN (06:25)
[2016-05-22] MEDS: HumaLOG INSULIN (NovoLOG) PER UNIT SC SCH ×4 (07:32→21:09)
[2016-05-22 08:00] VITALS: BP 131/77
[2016-05-22] MEDS ORDERED: MAG SULF 1GM/100ML (MAG RUN) 1 GM in APPROPRIATE DILUENT 1 EA IV ONE (08:15)
--- NOTE | 2016-05-22 08:37 | CR ---
DATE OF CONSULTATION: 05/21/2016 CARDIOLOGY CONSULTATION: REFERRING PROVIDER: Dr. Carlos Flores REASON FOR THE CONSULTATION: Ventricular tachycardia, history of cardiomyopathy. HISTORY OF PRESENT ILLNESS: 46-year-old male with a history of cardiomyopathy with a depressed left ventricular systolic function, hypertension, hyperlipidemia, diabetes mellitus, obesity and sleep apnea, arthritis/osteoarthritis, kidney stone, has been doing well but, prior to coming into the hospital, he had developed shortness of breath and a chest tightness. He came to the emergency room (ER) on 05/20/2016 in the morning and, at that time, he was found to have a blood pressure reported to be 192/112 with a pulse of 118, respirations 18, and his temperature was 98.6 degrees Fahrenheit with an oxygen saturation of 99% on room air. He was admitted for further management and monitoring with a diagnosis of hypertensive urgency. His carvedilol was changed to labetalol. His blood pressure has improved, but he continued to be tachycardic and, earlier today, while sleeping, he suddenly woke up and he was found to have a short run of ventricular tachycardia made of about 10-15 beats. Cardiology consult was called. Case was discussed earlier and with the hospitalist, and his labetalol was increased from 300 mg by mouth daily to up to 400 mg by mouth daily. When I saw Mr. Zhou Grubbs this evening, he was supine in bed in no acute distress at rest and gentleman. He used to be seen by Dr. Li and Dr. Cutler, but he was discharged from the practice because of his compliance. Patient stated that he did not have any insurance but he kept taking his medication regularly; they were being refilled by his primary care physician. He denies any chest pain with activities but does complain of shortness of breath with activities at rest. He has occasional palpitations, particularly when in bed, and he stated that the thing had happened earlier today when he was found to have the abnormal rhythm, does happen at times at home. He denies any cough, hemoptysis, or . He has no nausea, vomiting, diarrhea, melena, or hematemesis. There is no pedal edema. There is no focal manifestation. There is no report of bleeding. MEDICATIONS: At home: - metformin 400 mg by mouth twice a day - spironolactone 25 mg tablets, half tablet by mouth daily - valsartan 80 mg by mouth twice a day - carvedilol one tablet by mouth twice a day Current medications are: - valsartan 80 mg by mouth twice a day - labetalol 200 mg by mouth twice a day - aspirin 81 mg by mouth daily - Flonase nasal spray 0.05% one spray twice a day - Augmentin 875 mg by mouth twice a day - regular insulin coverage - Afrin two sprays twice a day for nasal congestion - lorazepam 0.5 mg by mouth every 8 hours as needed for anxiety - Lovenox 40 mg by mouth subcutaneously daily - glucose 16 grams as directed as needed - dextrose D50, 25 mL IV as directed as needed for hypoglycemia - glucagon 1 mg subcutaneously as directed, also for hypoglycemia - Tylenol 650 mg by mouth every 4 hours for mild pain or fever - morphine sulfate 2 mg every 2 hours IV as needed for severe pain - Dulcolax 5 mg by mouth daily as needed for constipation - Zofran 4 mg IV every 6 hours as needed for nausea or vomiting - hydrochlorothiazide 25 mg by mouth daily - spironolactone 25 mg by mouth daily PAST SURGICAL HISTORY: Is unremarkable. 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 He never smoked. There is no report of ethyl alcohol (EtOH) abuse. ALLERGIES: He has allergies to PROCHLORPERAZINE. ADVANCED DIRECTIVES: Patient is a FULL CODE. FAMILY HISTORY: Is strongly positive for heart disease both for mom and father with history of coronary artery disease (CAD). He has a sister with diabetes mellitus, hypertension, hyperlipidemia. PHYSICAL EXAMINATION: Patient is alert and oriented, in no acute distress at rest, and very pleasant, and his vital signs when I saw him revealed a blood pressure of 147/74 with a pulse of 105, respirations 18, and his temperature was 98.8 degrees Fahrenheit with an oxygen saturation of 96% on room air. He has a negative fluid balance of about 700 mL. Examination of the head, ears, eyes, nose, and throat: Atraumatic is normocephalic, atraumatic. Neck is supple. No jugular venous distention (JVD) or carotid bruits. The lungs were clear bilaterally on auscultation without any wheezing or crackles. The heart examination revealed normal S1 and S2 without gallops. The point of maximal impulse (PMI) is not displaced. There is no rub. Abdomen is soft and nontender. Obese. Extremities revealed no pedal edema. Peripheral pulses, dorsalis pedis were +2 and equal. Neurological examination is negative for focal deficit. LABS: BMP done on 05/20/2016 revealed a sodium of 140, potassium 4.2, chloride 105, CO2 of 26, BUN 14, creatinine 0.98, GFR more than 60, fasting glucose 245. Lactic acid was 1.7. Serum calcium is 9.1. Serum troponin was 0.20, then 0.19, then 0.18, then 0.18, then 0.15, then 0.12, then 0.11, and 0.11. BMP on 05/21/2016, when I saw him, revealed a sodium of 136, potassium 3.8, chloride 97, CO2 of 30, BUN 20, creatinine 1.12, GFR more than 60, and fasting glucose 228. CBC on 05/21/2016 revealed a WBC of 7.3, hemoglobin 14.9, hematocrit 41.6, and platelet 168,000. CBC on admission, 05/20/2016, revealed a WBC of 9.6, hemoglobin 15.6, hematocrit 42.6, and platelet 183,000. Blood culture has been negative after 24 hours. Electrocardiogram on admission revealed normal sinus rhythm, tachycardic at 111 beats per minute, and nonspecific ST-T abnormalities. Electrocardiogram on 05/21/2016 revealed normal sinus rhythm at 99 beats per minute, left atrial abnormality, and nonspecific ST-T abnormalities. Could rule out prior inferior wall infarct. Echocardiogram done on 05/21/2016 revealed a left ventricular ejection fraction (LVEF) estimated at 30% with mild concentric left ventricular hypertrophy, multiple regional wall motion abnormalities, grade 1 left ventricular diastolic dysfunction. It was reported there was probably akinesis involving the anterior wall from base to apex, anteroseptal region also from base to apex, the entire ventricular apex. The inferior wall was reported to be hypokinetic, also from base to apex. The basal and mid anterolateral segments were normal as well as the basal inferolateral. The mid inferolateral segment was probably hypokinetic. No thrombus. There was a moderately dilated left atrium. Cardiac valves were reported to be normal. Pulmonary artery systolic pressure also reported to be normal. IMPRESSION: 1. Nonsustained ventricular tachycardia. 2. History of cardiomyopathy, systolic in nature. 3. History accelerated hypertension. 4. Hyperlipidemia. 5. Diabetes mellitus. 6. Obesity and sleep apnea. 7. History of intolerance to statins. Mr. Zhou Grubbs seems to be stable and his symptoms have improved. His medications were reviewed, and we will continue for now the labetalol; but once more stable, I will probably change it to metoprolol tartrate or metoprolol succinate. It seemed that he did respond well with the carvedilol. The Labetalol is good for the blood pressure, but there is no clear indication and it has not been studied as beta-omar in a patient with left ventricular systolic dysfunction. In the meantime, I will increase the valsartan up to 160 mg by mouth twice a day. We need to monitor closely his BUN, creatinine, and serum potassium. If his blood pressure goes too low, we will then discontinue the hydrochlorothiazide. Upon discharge, he may need electrophysiology (EP) evaluation for an automatic implantable cardioverter-defibrillator (AICD) implantation to prevent sudden cardiac . This was not discussed with him, I will recommend to discharge him on a LifeVest. I can arrange that for him if he agrees, and I will discuss with you in the morning. It was a pleasure to assist in the care of Mr. Zhou Grubbs for his underlying cardiac condition. I will continue to monitor him along with you while in the hospital and, if needed, I will treat him as outpatient if he wants to come to our office. Please do not hesitate to call if any question.
[2016-05-22] MEDS ORDERED: VALSARTAN 80 MG TAB (DIOVAN) PO SCH (09:00)
[2016-05-22] MEDS: ASPIRIN 81 MG CHEW TABLET PO SCH (09:09)
[2016-05-22] MEDS: SPIRONOLACTONE 25 MG TAB PO SCH (09:09)
[2016-05-22] MEDS: AUGMENTIN 875 MG TAB PO SCH ×2 (09:09→21:03)
[2016-05-22] MEDS: hydroCHLOROthiazide 25 MG TAB PO SCH (09:10)
[2016-05-22] MEDS: LABETALOL 200 MG TAB PO SCH ×2 (09:11→21:03)
[2016-05-22] MEDS: FLUTICASONE PROP 0.05% NASAL SPRAY 16 GM (FLONASE) SCH ×2 (09:12→21:10)
[2016-05-22] MEDS: LEVEMIR (INSULIN DETEMIR) 1 UNITS/0.01ML SC SCH (09:12)
--- NOTE | 2016-05-22 09:58 | IPNPDOC ---
[facility] Cardiology Progress Note Date of Service/Time The patient was seen on 05/22/16 at 09:39. Cardiology Progress Note Mr Grubbs is a 46 y/o male who presented initially for worsening SOB associated with diaphoresis, was found to be in hypertensive urgency in emergency department. OBJECTIVE: PHYSICAL EXAMINATION: VITAL SIGNS: Please see below. GENERAL APPEARANCE: Patient is sitting in his bed chair, eating breakfast, seems comfortable and in no distress HEENT: NCAT, EOMI, nares patent b/l, tongue midline and moist mucus membranes LUNGS: CTA b/l, good air expansion, no wheezing, rhonchi or rales appreciated on exam HEART: normal S1 and S1, could not appreciate any gallops, rubs or murmurs ABDOMEN: obese, soft, NABSx4, non-distended and no organomegaly appreciated SKIN: intact NEUROLOGICAL: no focal deficits appreciated PSYCHIATRIC: appropriate mood and affect LABORATORY WORK: Please see below. ASSESSMENT AND PLAN: Mr Grubbs seemed to be doing well this morning on exam, he denied being currently SOB or experiencing CP or palpitations. The pt. usually follows with cardiology in town but has had a lapse in his insurance and could not afford further care, thus he has been dealing with the SOB for quite some time but he states that is has been getting progressively worse. 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 He denies ever having heart catheterization, but does admit to GONZALO and wears CPAP at night time. Interestingly, the patients SOB only seems to really bother him at night time, this is when he admits he notices it the most and also has associated chest tightness, sometimes waking him from sleep. This certainly sounds like paroxysmal nocturnal dyspnea. The patient was recommended last year for AICD placement but was unable to have procedure due to not having insurance. His most recent ECHO one day ago showed an EF of 30% with mild concentric left ventricle hypertrophy and severe reduction in overall LV systolic function. Would suggest PFS consult so that the patient can obtain some form of insurance so that this is not a barrier for him receiving further care in the future. This certainly sounds like hypertensive heart disease and pt. had changes on EKG of left ventricular hypertrophy to suggest as such. We discussed the very high importance of weight loss and how this will positively effect his current heart condition. The patient is also on Valsartan therapy and states that this is very expensive for him to take, will suggest changing to lisinopril medical therapy and continuing his lasix therapy. The patient was advised he should weigh himself in the AM and PM and if there is an increase in weight at night, to take his diuretic at night time before bed, he could also benefit from a nitroglycerin patch at night, however this may also not be cost effective for the patient given his uninsured status. Mr Epperson seemd to be doing well this AM and pending no further changes in his condition, would be amenable to discharge today or tomorrow, his troponin has been trending down and at last check was .11. Would not suggest any further changes to his care at this time. 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 Rapidly improved with diuresis and standard treatment. 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 Obtaining insurance or some form of financial support will be crucial. Vital Signs/I&O VS/I&O Vital Signs Date Time Temp Pulse Resp B/P Pulse Ox O2 Delivery O2 Flow Rate FiO2 05/22/16 09:10 131/77 05/22/16 08:00 97.8 103 18 98 Room Air 05/21/16 14:19 1.0 I&O- Last 24 Hours up to 6 AM 05/22/16 05:59 Intake Total 2300 ml Output Total 2400 ml Balance -100 ml Laboratory Data 24H LABS Laboratory Tests 2 05/21/16 11:22: Bedside Glucose (Misc Panel) 245H 05/21/16 14:59: Anion Gap 9, Blood Urea Nitrogen 20H, Creatinine 1.12, Sodium Level 136, Potassium Level 3.8, Chloride Level 97L, Carbon Dioxide Level 30, Calcium Level 9.0, Creatine Kinase MB 1.7, Creatine Kinase MB Relative Index 1.68, Glomerular Filtration Rate > 60.0, Magnesium Level 1.8, Total Creatine Kinase 101, Troponin I 0.12H 05/21/16 17:09: Bedside Glucose (Misc Panel) 225H 05/21/16 17:29: Creatine Kinase MB 1.4, Creatine Kinase MB Relative Index 1.18, Total Creatine Kinase 118, Troponin I 0.11H 05/21/16 20:04: Creatine Kinase MB 1.2, Creatine Kinase MB Relative Index 1.08, Total Creatine Kinase 111, Troponin I 0.11H 05/21/16 20:28: Bedside Glucose (Misc Panel) 291H 05/22/16 04:47: Anion Gap 9, Blood Urea Nitrogen 21H, Creatinine 1.06, Sodium Level 139, Potassium Level 4.6#, Chloride Level 103, Carbon Dioxide Level 27, Calcium Level 8.8, Glomerular Filtration Rate > 60.0, Magnesium Level 1.9 CBC/BMP Laboratory Tests 05/21/16 14:59 Calcium Level 9.0 05/22/16 04:46 Red Blood Count 4.68, Mean Corpuscular Volume 89.7, Mean Corpuscular Hemoglobin 32.6, Mean Corpuscular Hemoglobin Concent 36.4, Red Cell Distribution Width 13.1 05/22/16 04:47 Calcium Level 8.8 FSBS Laboratory Tests Test 05/21/16 11:22 05/21/16 17:09 05/21/16 20:28 Range/Units Bedside Glucose (Misc Panel) 245 225 291 70-105 MG/DL Microbiology Microbiology 05/20/16 Blood Culture - Preliminary, Resulted No growth after 24 hours . All specim... 05/20/16 Blood Culture - Preliminary, Resulted No growth after 24 hours . All specim... 05/20/16 MRSA Screen - Final, Complete GME ATTESTATION GME ATTESTATION My preceptor for this patient encounter was physically present in the building during the encounter and was fully available. As needed, all aspects of the patient interview, examination, medical decision making process, and medical care plan development were reviewed and approved by the preceptor. Preceptor is aware and concurs with the plan as stated in the body of this note and will attest to such by his/her cosignature. FABBY PACHECO DO May 22, 2016 09:58 Hill Lau MD May 25, 2016 16:37
[2016-05-22 12:00] VITALS: BP 129/82
[2016-05-22] MEDS: hydrOXYzine 50 MG TAB PO PRN ×2 (13:40→21:01)
[2016-05-22 16:00] VITALS: BP 133/88
--- NOTE | 2016-05-22 16:30 | IPNPDOC ---
Text Note Date of Service The patient was seen on 05/22/16 at 16:27. NOTE Subjective: Patient states his shortness of breath significantly improved. He is moving around without difficulty. No recurrent episodes of V. tach. Objective: Vitals: (see below) General: No acute distress, laying comfortably in bed. HEENT: Moist mucous membranes. Neck: No JVD or lymphadenopathy Cardiac: RRR, No murmurs Pulm: Coarse crackles at the bases b/l. No wheezing, no rhonchi Abd: NT/ND + BS Ext: Trace edema BLE. No cyanosis Labs (see below) Images: CXR 05/20/16 Impression: Cardiomegaly. CTA 05/20/16 Impression: No evidence for pulmonary embolus. No acute pleuroparenchymal or mediastinal process. Echocardiogram on 05/21/16 CONCLUSIONS: 1. Mild concentric left ventricle hypertrophy. Severe reduction in overall LV systolic function. Left ventricular ejection fraction (LVEF) 30% by visual estimate. Multiple regional wall motion abnormalities. Grade I LV diastolic dysfunction. Probable akinesis involving the anterior wall from base to apex, anteroseptal region and intraseptal region from base to apex and the entire left ventricle apex. The inferior wall was probably hypokinetic from base to apex. The basal and mid anterolateral segments were normal kinetic. The basal inferolateral segment was normal kinetic and the mid inferolateral segment was probably hypokinetic. No LV thrombus. 2. Moderate left atrial dilatation. 3. Structurally and functionally normal cardiac valves. 4. Suggestive of normal pulmonary artery systolic pressure. Assessment/Plan 1. Acute Decompensated Systolic Heart Failure, Recent EF noted to be 35-40% per medical records. Prior ID per medical records. Patient was also hypertensive on presentation. Blood pressure is better controlled with current regimen. His shortness breath has improved. We'll continue Lasix, beta omar, valsartan, spironolactone. Apparently patient has been followed by Dr. Li with a plan for an AICD before he lost his insurance, however when I spoke to , he said that the patient has been discharged in the clinic. Will likely need a LifeVest before discharge until he is able to get the AICD. Will need outpatient EP evaluation for AICD. 2. Ventricular tachycardia- patient had symptomatic episode today with 11 beats. Potassium and magnesium have been replaced. No acute ST changes. Echocardiogram today. Appreciate Dr. Phelps's input. Continue current meds. Valsartan has been increased. If the patient's blood pressure does drop, we will discontinue HCTZ. 3. Hypertensive urgency- better controlled with current regimen. 4. Type 2 diabetes mellitus A1c 7.4. Sliding scale insulin as well as consistent carbohydrate diet. Metformin on hold. 5. Acute sinusitis- on Augmentin. DVT prophy: Lovenox Patient does not have insurance at this time. Currently working with case management for possible follow-up with the residents clinic. VS,Bridget, I+O VS, Bridget, I+O Laboratory Tests 05/22/16 04:46 Red Blood Count 4.68, Mean Corpuscular Volume 89.7, Mean Corpuscular Hemoglobin 32.6, Mean Corpuscular Hemoglobin Concent 36.4, Red Cell Distribution Width 13.1 05/22/16 04:47 Calcium Level 8.8 Vital Signs Date Time Temp Pulse Resp B/P Pulse Ox O2 Delivery O2 Flow Rate FiO2 05/22/16 12:00 97.4 93 18 129/82 96 Room Air 05/21/16 14:19 1.0 I&O- Last 24 Hours up to 6 AM 05/22/16 06:00 Intake Total 2210 ml Output Total 2700 ml Balance -490 ml ELLYN SIMMS MD May 22, 2016 16:30
[2016-05-22] MEDS: ENOXAPARIN 40 MG/0.4 ML SYRINGE (J1650) SC SCH (18:15)
--- NOTE | 2016-05-22 19:37 | EDDOCDS ---
Physician Documentation [facility] Name: Zhou Grubbs Age: 46 yrs Sex: Male : 1970 Arrival Date: 05/20/2016 Time: 10:46 Bed 13 Private MD: No Pcp Disposition: 05/20/16 15:51 Hospitalization ordered by Gissell Chavez for Inpatient Admission. Preliminary diagnosis is Dyspnea. - Bed requested for M ICU. - Status is Inpatient Admission. mk4 - Condition is Stable. - Problem is new. - Symptoms are unchanged. Historical: - Allergies: Compazinecan't breathe; - Home Meds: 1. metformin 500 mg Oral Tb24 1 tab 2 times per day (Last dose: 05/19/2016) 2. spironolactone 25 mg Oral tab 0.5 tab once daily (Last dose: 05/19/2016) 3. valsartan 80 mg oral tab 1 tab 2 times per day (Last dose: 05/19/2016) 4. carvedilol 25 mg oral tab 1 tab 2 times per day (Last dose: 05/19/2016) - PMHx: Hypertension; Kidney stones; CHF; Myocardial infarction; - PSHx: none; - Social history: Smoking status: Patient states was never smoker of tobacco. No barriers to communication noted, The patient speaks fluent Finnish. - Family history: Not pertinent. - : The pt / caregiver states he / she is not on anticoagulants. Home medication list is obtained from the patient. - Exposure Risk Screening:: None identified. Vital Signs: 05/20 10:48 BP 192 / 112; Pulse 118; Resp 18; Temp 98.6(O); Pulse Ox 99% on R/A; Weight 103.42 kg / ct3 228 lbs (R); Height 5 ft. 3 in. (160.02 cm) (R); Pain 7/10; 10:48 BP 188 / 113 LA Sitting (auto/lg); ct3 11:23 BP 165 / 110 (auto/); mk4 11:23 Pulse 106 MON; Pulse Ox 96% ; mk4 11:29 BP 170 / 118 (auto/); mk4 11:29 Pulse 102 MON; Pulse Ox 96% ; mk4 11:39 BP 171 / 114 (auto/); mk4 11:39 Pulse 106 MON; Pulse Ox 95% ; mk4 11:44 BP 163 / 122 (auto/); mk4 11:44 Pulse 104 MON; Pulse Ox 98% ; mk4 12:14 BP 142 / 99 (auto/); mk4 12:14 Pulse 98 MON; Pulse Ox 96% ; mk4 12:29 BP 128 / 78 (auto/); mk4 12:29 Pulse 94 MON; Pulse Ox 96% ; mk4 12:44 BP 128 / 82 (auto/); mk4 12:44 Pulse 92 MON; mk4 12:59 BP 130 / 83 (auto/); mk4 12:59 Pulse 94 MON; Pulse Ox 95% ; mk4 13:14 BP 138 / 92 (auto/); mk4 13:14 Pulse 90 MON; Pulse Ox 94% ; mk4 13:29 BP 134 / 88 (auto/); mk4 13:29 Pulse 92 MON; Pulse Ox 94% ; mk4 13:44 BP 125 / 85 (auto/); mk4 13:44 Pulse 94 MON; Pulse Ox 95% ; mk4 13:59 BP 141 / 80 (auto/); mk4 13:59 Pulse 92 MON; mk4 14:05 BP 125 / 80; jrd 14:13 Pulse 100 MON; mk4 14:14 BP 142 / 92 (auto/); mk4 14:29 BP 143 / 86 (auto/); mk4 14:29 Pulse 98 MON; mk4 14:44 Pulse 98 MON; mk4 14:44 BP 142 / 89 (auto/); mk4 14:59 BP 142 / 82 (auto/); mk4 14:59 Pulse 96 MON; mk4 15:14 BP 140 / 79 (auto/); mk4 15:14 Pulse 96 MON; mk4 15:29 BP 144 / 95 (auto/); mk4 15:29 Pulse 94 MON; mk4 15:44 BP 147 / 100 (auto/); mk4 15:44 Pulse 96 MON; mk4 15:59 BP 141 / 84 (auto/); mk4 15:59 Pulse 92 MON; Pulse Ox 95% ; mk4 16:14 BP 135 / 82 (auto/); mk4 16:14 Pulse 92 MON; Pulse Ox 94% ; mk4 16:29 BP 151 / 98 (auto/); mk4 16:29 Pulse 96 MON; Pulse Ox 93% ; mk4 16:44 BP 151 / 99 (auto/); mk4 16:44 Pulse 96 MON; Pulse Ox 94% ; mk4 16:49 BP 164 / 105 (auto/); mk4 16:51 Pulse 96 MON; Pulse Ox 94% ; mk4 16:59 BP 154 / 102 (auto/); mk4 16:59 Pulse 92 MON; Pulse Ox 95% ; mk4 17:14 BP 153 / 110 (auto/); mk4 17:14 Pulse 96 MON; Pulse Ox 97% ; mk4 17:29 Pulse 96 MON; Pulse Ox 96% ; mk4 17:29 BP 159 / 108 (auto/); mk4 17:44 BP 152 / 107 (auto/); mk4 17:44 Pulse 92 MON; Pulse Ox 95% ; mk4 17:59 BP 154 / 109 (auto/); mk4 17:59 Pulse 90 MON; Pulse Ox 96% ; mk4 10:48 Body Mass Index 40.39 (103.42 kg, 160.02 cm) ct3 MDM: 11:00 -Blood Culture (Adults Only), peripheral from different site, or from device/port/PICC sd1 etc. if present ordered. 11:00 Solid Waste Disposal Manager/Pulse Ox/q 15 min VS ordered. sd1 11:00 IV Saline Lock ordered. sd1 11:00 Oxygen at 4L/Min NC or Home dosage ordered. sd1 11:00 Rhythm Strip to chart ordered. sd1 11:01 B-Type Natiuretic Peptide Ordered. EDMS 11:01 Basic Metabolic Profile Ordered. EDMS 11:01 CBC with Diff Ordered. EDMS 11:01 Cardiac Injury Profile Ordered. EDMS 11:01 Troponin Ordered. EDMS 11:01 -Blood Culture Ordered. EDMS 11:01 Chest, 1 View Ordered. EDMS 11:01 ECG WITH READING ER PHYS+CARDIAG ordered. EDMS 11:07 Lactic Acid (Lucia tube on ice) Ordered. EDMS 11:08 carvedilol 25 mg PO once ordered. sd1 11:08 Losartan 80 mg PO once ordered. sd1 11:15 -Blood Culture (Adults Only), peripheral from different site, or from device/port/PICC lbd etc. if present complete. 11:19 BLOOD CULTURES Ordered. EDMS 11:37 Valsartan 80 mg PO once ordered. dy 12:08 Albuterol-Ipratropium 3 ml Inhalation once ordered. sd1 12:08 B-Type Natiuretic Peptide Reviewed. sd1 12:08 Basic Metabolic Profile Reviewed. sd1 12:08 CBC with Diff Reviewed. sd1 12:08 Troponin Reviewed. sd1 12:08 Cardiac Injury Profile Reviewed. sd1 12:08 Lactic Acid (Lucia tube on ice) Reviewed. sd1 12:10 CT Chest Angio R/O PE Ordered. EDMS 12:49 [facility] Payment Agreement was scanned into [email or web address] and attached to record. jp5 12:49 Financial registration complete. jp5 13:48 Recheck B/P ordered. sd1 13:48 Chest, 1 View Reviewed. sd1 13:48 CT Chest Angio R/O PE Reviewed. sd1 13:49 Redraw CIP &Troponin (put time in details section) ordered. sd1 13:51 Redraw CIP &Troponin (put time in details section) complete. jlf 13:53 CARDIAC INJURY PROFILE Ordered. EDMS 13:53 TROPONIN Ordered. EDMS 15:19 TROPONIN Reviewed. sd1 15:19 CARDIAC INJURY PROFILE Reviewed. sd1 15:48 Aspirin Chewable Tablet 81 mg PO once ordered. sd1 15:50 REGULAR+DIET ordered. EDMS 17:04 Admission / Observation Status ordered. EDMS 17:04 CONSISTENT CARBOHYDRATES ordered. EDMS 17:04 NO ADDED SALT DIET ordered. EDMS 17:06 ELECTROCARDIOGRAM ADULT ordered. EDMS 17:07 CARDIAC MARKER PANEL Ordered. EDMS 17:07 HEMOGLOBIN A1C Ordered. EDMS 17:41 Written Provider Order was scanned into [email or web address] and attached to record. lbd 17:56 morphine 2 mg IVP once ordered. mk4 17:56 Labetalol 10 mg IVP at bolus once over 2 mins ordered. mk4 17:57 Labetalol 100 mg PO once ordered. mk4 18:18 ECHOCARD,DOPPLER/COLOR FLOW ordered. EDMS 05/21 11:52 T-Sheet-- Draft Copy was scanned into [email or web address] and attached to record. gb Administered Medications: 05/20 11:25 Drug: carvedilol 25 mg [carvedilol 6.25 mg tablet (4 tabs)] Route: PO; dy 11:37 Not Given (wrong drug ordered): Losartan 80 mg PO once dy 11:40 Drug: Valsartan 80 mg [valsartan 80 mg tablet (1 tabs)] Route: PO; mk4 13:31 Drug: Albuterol-Ipratropium 3 ml [ipratropium-albuterol 0.5 mg-3 mg(2.5 mg base)/3 mL js11 nebulization soln (3 mL)] Route: Inhalation; 15:58 Drug: Aspirin 81 mg [aspirin 81 mg chewable tablet (1 tabs)] Route: PO; mk4 17:56 Drug: morphine 2 mg [morphine 2 mg/mL intravenous cartridge (1 mL)] Route: IVP; Site: mk4 left antecubital; 17:56 Drug: Labetalol 10 mg [labetalol 5 mg/mL intravenous solution (2 mL)] Route: IVP; Rate: mk4 bolus; Infused Over: 2 mins; Site: left antecubital; 17:57 Drug: Labetalol 100 mg [labetalol 100 mg tablet (1 tabs)] Route: PO; mk4 Signatures: Dispatcher [employer] EDMS Lesly Collins MD MD sd1 Gloria Mathews, Database Security Administrator Unit lbd Ritchie Moreira, RN RN dwg Veronica Martinez, Reg Reg gb Cipriano Swann, RN Celi Kirkland RN RN mk4 Meli Browning, RUSSELL TITLE LAWYER Renee Catalan jp5 Patrick Gutierrez, RN RN Dillon King js11 The chart was reviewed and I authenticate all verbal orders and agree with the evaluation and treatment provided.Corrections: (The following items were deleted from the chart) 17:08 17:04 CARDIAC MARKER PANEL ordered. EDIL EDMS Attachments: 12:49 [facility] Payment Agreement jp5 17:41 Written Provider Order lbd 05/21 11:52 T-Sheet-- Draft Copy gb Chart Complete MTDD
--- NOTE | 2016-05-22 19:37 | EDDOCDS ---
Physician Documentation [facility] Name: Zhou Grubbs Age: 46 yrs Sex: Male : 1970 Arrival Date: 05/20/2016 Time: 10:46 Bed 13 Private MD: No Pcp Disposition: 05/20/16 15:51 Hospitalization ordered by Gissell Chavez for Inpatient Admission. Preliminary diagnosis is Dyspnea. - Bed requested for M ICU. - Status is Inpatient Admission. mk4 - Condition is Stable. - Problem is new. - Symptoms are unchanged. Historical: - Allergies: Compazinecan't breathe; - Home Meds: 1. metformin 500 mg Oral Tb24 1 tab 2 times per day (Last dose: 05/19/2016) 2. spironolactone 25 mg Oral tab 0.5 tab once daily (Last dose: 05/19/2016) 3. valsartan 80 mg oral tab 1 tab 2 times per day (Last dose: 05/19/2016) 4. carvedilol 25 mg oral tab 1 tab 2 times per day (Last dose: 05/19/2016) - PMHx: Hypertension; Kidney stones; CHF; Myocardial infarction; - PSHx: none; - Social history: Smoking status: Patient states was never smoker of tobacco. No barriers to communication noted, The patient speaks fluent [place] Islander. - Family history: Not pertinent. - : The pt / caregiver states he / she is not on anticoagulants. Home medication list is obtained from the patient. - Exposure Risk Screening:: None identified. Vital Signs: 05/20 10:48 BP 192 / 112; Pulse 118; Resp 18; Temp 98.6(O); Pulse Ox 99% on R/A; Weight 103.42 kg / ct3 228 lbs (R); Height 5 ft. 3 in. (160.02 cm) (R); Pain 7/10; 10:48 BP 188 / 113 LA Sitting (auto/lg); ct3 11:23 BP 165 / 110 (auto/); mk4 11:23 Pulse 106 MON; Pulse Ox 96% ; mk4 11:29 BP 170 / 118 (auto/); mk4 11:29 Pulse 102 MON; Pulse Ox 96% ; mk4 11:39 BP 171 / 114 (auto/); mk4 11:39 Pulse 106 MON; Pulse Ox 95% ; mk4 11:44 BP 163 / 122 (auto/); mk4 11:44 Pulse 104 MON; Pulse Ox 98% ; mk4 12:14 BP 142 / 99 (auto/); mk4 12:14 Pulse 98 MON; Pulse Ox 96% ; mk4 12:29 BP 128 / 78 (auto/); mk4 12:29 Pulse 94 MON; Pulse Ox 96% ; mk4 12:44 BP 128 / 82 (auto/); mk4 12:44 Pulse 92 MON; mk4 12:59 BP 130 / 83 (auto/); mk4 12:59 Pulse 94 MON; Pulse Ox 95% ; mk4 13:14 BP 138 / 92 (auto/); mk4 13:14 Pulse 90 MON; Pulse Ox 94% ; mk4 13:29 BP 134 / 88 (auto/); mk4 13:29 Pulse 92 MON; Pulse Ox 94% ; mk4 13:44 BP 125 / 85 (auto/); mk4 13:44 Pulse 94 MON; Pulse Ox 95% ; mk4 13:59 BP 141 / 80 (auto/); mk4 13:59 Pulse 92 MON; mk4 14:05 BP 125 / 80; jrd 14:13 Pulse 100 MON; mk4 14:14 BP 142 / 92 (auto/); mk4 14:29 BP 143 / 86 (auto/); mk4 14:29 Pulse 98 MON; mk4 14:44 Pulse 98 MON; mk4 14:44 BP 142 / 89 (auto/); mk4 14:59 BP 142 / 82 (auto/); mk4 14:59 Pulse 96 MON; mk4 15:14 BP 140 / 79 (auto/); mk4 15:14 Pulse 96 MON; mk4 15:29 BP 144 / 95 (auto/); mk4 15:29 Pulse 94 MON; mk4 15:44 BP 147 / 100 (auto/); mk4 15:44 Pulse 96 MON; mk4 15:59 BP 141 / 84 (auto/); mk4 15:59 Pulse 92 MON; Pulse Ox 95% ; mk4 16:14 BP 135 / 82 (auto/); mk4 16:14 Pulse 92 MON; Pulse Ox 94% ; mk4 16:29 BP 151 / 98 (auto/); mk4 16:29 Pulse 96 MON; Pulse Ox 93% ; mk4 16:44 BP 151 / 99 (auto/); mk4 16:44 Pulse 96 MON; Pulse Ox 94% ; mk4 16:49 BP 164 / 105 (auto/); mk4 16:51 Pulse 96 MON; Pulse Ox 94% ; mk4 16:59 BP 154 / 102 (auto/); mk4 16:59 Pulse 92 MON; Pulse Ox 95% ; mk4 17:14 BP 153 / 110 (auto/); mk4 17:14 Pulse 96 MON; Pulse Ox 97% ; mk4 17:29 Pulse 96 MON; Pulse Ox 96% ; mk4 17:29 BP 159 / 108 (auto/); mk4 17:44 BP 152 / 107 (auto/); mk4 17:44 Pulse 92 MON; Pulse Ox 95% ; mk4 17:59 BP 154 / 109 (auto/); mk4 17:59 Pulse 90 MON; Pulse Ox 96% ; mk4 10:48 Body Mass Index 40.39 (103.42 kg, 160.02 cm) ct3 MDM: 11:00 -Blood Culture (Adults Only), peripheral from different site, or from device/port/PICC sd1 etc. if present ordered. 11:00 Home Hospice Aide/Pulse Ox/q 15 min VS ordered. sd1 11:00 IV Saline Lock ordered. sd1 11:00 Oxygen at 4L/Min NC or Home dosage ordered. sd1 11:00 Rhythm Strip to chart ordered. sd1 11:01 B-Type Natiuretic Peptide Ordered. EDMS 11:01 Basic Metabolic Profile Ordered. EDMS 11:01 CBC with Diff Ordered. EDMS 11:01 Cardiac Injury Profile Ordered. EDMS 11:01 Troponin Ordered. EDMS 11:01 -Blood Culture Ordered. EDMS 11:01 Chest, 1 View Ordered. EDMS 11:01 ECG WITH READING ER PHYS+CARDIAG ordered. EDMS 11:07 Lactic Acid (Lucia tube on ice) Ordered. EDMS 11:08 carvedilol 25 mg PO once ordered. sd1 11:08 Losartan 80 mg PO once ordered. sd1 11:15 -Blood Culture (Adults Only), peripheral from different site, or from device/port/PICC lbd etc. if present complete. 11:19 BLOOD CULTURES Ordered. EDMS 11:37 Valsartan 80 mg PO once ordered. dy 12:08 Albuterol-Ipratropium 3 ml Inhalation once ordered. sd1 12:08 B-Type Natiuretic Peptide Reviewed. sd1 12:08 Basic Metabolic Profile Reviewed. sd1 12:08 CBC with Diff Reviewed. sd1 12:08 Troponin Reviewed. sd1 12:08 Cardiac Injury Profile Reviewed. sd1 12:08 Lactic Acid (Lucia tube on ice) Reviewed. sd1 12:10 CT Chest Angio R/O PE Ordered. EDMS 12:49 [facility] Payment Agreement was scanned into [employer] and attached to record. jp5 12:49 Financial registration complete. jp5 13:48 Recheck B/P ordered. sd1 13:48 Chest, 1 View Reviewed. sd1 13:48 CT Chest Angio R/O PE Reviewed. sd1 13:49 Redraw CIP &Troponin (put time in details section) ordered. sd1 13:51 Redraw CIP &Troponin (put time in details section) complete. jlf 13:53 CARDIAC INJURY PROFILE Ordered. EDMS 13:53 TROPONIN Ordered. EDMS 15:19 TROPONIN Reviewed. sd1 15:19 CARDIAC INJURY PROFILE Reviewed. sd1 15:48 Aspirin Chewable Tablet 81 mg PO once ordered. sd1 15:50 REGULAR+DIET ordered. EDMS 17:04 Admission / Observation Status ordered. EDMS 17:04 CONSISTENT CARBOHYDRATES ordered. EDMS 17:04 NO ADDED SALT DIET ordered. EDMS 17:06 ELECTROCARDIOGRAM ADULT ordered. EDMS 17:07 CARDIAC MARKER PANEL Ordered. EDMS 17:07 HEMOGLOBIN A1C Ordered. EDMS 17:41 Written Provider Order was scanned into [employer] and attached to record. lbd 17:56 morphine 2 mg IVP once ordered. mk4 17:56 Labetalol 10 mg IVP at bolus once over 2 mins ordered. mk4 17:57 Labetalol 100 mg PO once ordered. mk4 18:18 ECHOCARD,DOPPLER/COLOR FLOW ordered. EDMS 05/21 11:52 T-Sheet-- Draft Copy was scanned into [employer] and attached to record. gb Administered Medications: 05/20 11:25 Drug: carvedilol 25 mg [carvedilol 6.25 mg tablet (4 tabs)] Route: PO; dy 11:37 Not Given (wrong drug ordered): Losartan 80 mg PO once dy 11:40 Drug: Valsartan 80 mg [valsartan 80 mg tablet (1 tabs)] Route: PO; mk4 13:31 Drug: Albuterol-Ipratropium 3 ml [ipratropium-albuterol 0.5 mg-3 mg(2.5 mg base)/3 mL js11 nebulization soln (3 mL)] Route: Inhalation; 15:58 Drug: Aspirin 81 mg [aspirin 81 mg chewable tablet (1 tabs)] Route: PO; mk4 17:56 Drug: morphine 2 mg [morphine 2 mg/mL intravenous cartridge (1 mL)] Route: IVP; Site: mk4 left antecubital; 17:56 Drug: Labetalol 10 mg [labetalol 5 mg/mL intravenous solution (2 mL)] Route: IVP; Rate: mk4 bolus; Infused Over: 2 mins; Site: left antecubital; 17:57 Drug: Labetalol 100 mg [labetalol 100 mg tablet (1 tabs)] Route: PO; mk4 Signatures: Dispatcher [employer] EDMS Lesly Collins MD MD sd1 Gloria Mathews, Remedial Reading Teacher Unit lbd Ritchie Moreira, RN RN dwg Veronica Martinez, Reg Reg gb Cipriano Swann, RN Celi Kirkland RN RN mk4 Meli Browning, RUSSELL BUTTERMAKER HELPER Renee Catalan jp5 Patrick Gutierrez, RN RN Dillon King js11 The chart was reviewed and I authenticate all verbal orders and agree with the evaluation and treatment provided.Corrections: (The following items were deleted from the chart) 17:08 17:04 CARDIAC MARKER PANEL ordered. EDDC EDMS Attachments: 12:49 [facility] Payment Agreement jp5 17:41 Written Provider Order lbd 05/21 11:52 T-Sheet-- Draft Copy gb Chart Complete MTDD
--- NOTE | 2016-05-22 19:37 | EDDOCDS ---
Nurse's Notes [facility] Name: Zhou Grubbs Age: 46 yrs Sex: Male : 1970 Arrival Date: 05/20/2016 Time: 10:46 Bed 13 Private MD: No Pcp Diagnosis: Dyspnea Presentation: 05/20 10:55 Presenting complaint: Patient states: Increased difficulty breathing starting at 1am dwg today. Difficulty taking a deep breath. Adult Sepsis Screening: The patient does not have new or worsening altered mentation. Patient's respiratory rate is less than 22. Systolic blood pressure is greater than 100. Patient has a qSOFA score of 0- Negative Sepsis Screen. Suicide/Homicide risk assessment- the patient denies having any suicidal and/or homicidal ideations and does not present with any other emotional, behavioral or mental health complaints. 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 Transition of care: patient was not received from another setting of care. 10:55 Acuity: NHUNG Level 3 dwg 10:55 Method Of Arrival: Wheelchair dwg Triage Assessment: 10:58 General: Appears in no apparent distress. Pain: Pain currently is 6 out of 10 on a pain dwg scale. HIV screening NA for this visit Offered previously. Historical: - Allergies: Compazinecan't breathe; - Home Meds: 1. metformin 500 mg Oral Tb24 1 tab 2 times per day (Last dose: 05/19/2016) 2. spironolactone 25 mg Oral tab 0.5 tab once daily (Last dose: 05/19/2016) 3. valsartan 80 mg oral tab 1 tab 2 times per day (Last dose: 05/19/2016) 4. carvedilol 25 mg oral tab 1 tab 2 times per day (Last dose: 05/19/2016) - PMHx: Hypertension; Kidney stones; CHF; Myocardial infarction; - PSHx: none; - Social history: Smoking status: Patient states was never smoker of tobacco. No barriers to communication noted, The patient speaks fluent Macedonian. - Family history: Not pertinent. - : The pt / caregiver states he / she is not on anticoagulants. Home medication list is obtained from the patient. - Exposure Risk Screening:: None identified. Screenin:00 Screening information is obtained from the patient. Fall risk: No risks identified. mk4 Assistance ADL's: requires no assistance with activities of daily living. Abuse/DV Screen: The patient / caregiver reports he/she is: not in a situation that causes fear, pain or injury. Nutritional screening: No deficits noted. Advance Directives: Currently, there is no health care proxy. There is no active DNR order. There is no living will. There is no Power of Baby Sitter. Advance directive information has not previously been placed in an [facility] medical record. Further advance directive information is declined. home support is adequate. Assessment: 11:00 General: Appears distressed, Behavior is anxious. Cardiovascular: No deficits noted. mk4 Chest pain states he had a brief episode of chest pain at 0100 lasting about an hour denies chest pain now. Respiratory: Airway is patent Respiratory effort is even, labored, Respiratory pattern is regular, Breath sounds with wheezes expiratory. 11:55 Reassessment: Patient states feeling better. Patient states symptoms have improved. mk4 General: family at bedside. Respiratory: Airway is patent Respiratory effort is even, Respiratory pattern is regular, Breath sounds with wheezes expiratory. 13:10 Neurological: Level of Consciousness is awake, alert. Cardiovascular: Chest pain is mk4 denied. Respiratory: Airway is patent Respiratory effort is even. 14:16 General: Appears. Respiratory: Airway is patent Respiratory effort is even, unlabored, mk4 Respiratory pattern is regular. Derm: Skin is intact, is healthy with good turgor, Skin is pink, warm & dry. 14:43 General: Appears comfortable. mk4 15:58 General: Appears in no apparent distress, comfortable. Cardiovascular: Chest pain is mk4 denied. Respiratory: Airway is patent Respiratory effort is even, unlabored, Respiratory pattern is regular. 16:27 General: Appears in no apparent distress, comfortable, Behavior is cooperative, mk4 pleasant, quiet. Neurological: Level of Consciousness is awake, alert. Respiratory: Airway is patent Respiratory effort is even, unlabored, labored. 17:40 General: Appears in no apparent distress, comfortable, Behavior is cooperative. mk4 18:18 General: Appears in no apparent distress, comfortable, Behavior is cooperative. mk4 Neurological: Level of Consciousness is awake, alert. Respiratory: Reports shortness of breath at rest. Vital Signs: 10:48 BP 192 / 112; Pulse 118; Resp 18; Temp 98.6(O); Pulse Ox 99% on R/A; Weight 103.42 kg ct3 (R); Height 5 ft. 3 in. (160.02 cm) (R); Pain 7/10; 10:48 BP 188 / 113 LA Sitting (auto/lg); ct3 11:23 BP 165 / 110 (auto/); mk4 11:23 Pulse 106 MON; Pulse Ox 96% ; mk4 11:29 BP 170 / 118 (auto/); mk4 11:29 Pulse 102 MON; Pulse Ox 96% ; mk4 11:39 BP 171 / 114 (auto/); mk4 11:39 Pulse 106 MON; Pulse Ox 95% ; mk4 11:44 BP 163 / 122 (auto/); mk4 11:44 Pulse 104 MON; Pulse Ox 98% ; mk4 12:14 BP 142 / 99 (auto/); mk4 12:14 Pulse 98 MON; Pulse Ox 96% ; mk4 12:29 BP 128 / 78 (auto/); mk4 12:29 Pulse 94 MON; Pulse Ox 96% ; mk4 12:44 BP 128 / 82 (auto/); mk4 12:44 Pulse 92 MON; mk4 12:59 BP 130 / 83 (auto/); mk4 12:59 Pulse 94 MON; Pulse Ox 95% ; mk4 13:14 BP 138 / 92 (auto/); mk4 13:14 Pulse 90 MON; Pulse Ox 94% ; mk4 13:29 BP 134 / 88 (auto/); mk4 13:29 Pulse 92 MON; Pulse Ox 94% ; mk4 13:44 BP 125 / 85 (auto/); mk4 13:44 Pulse 94 MON; Pulse Ox 95% ; mk4 13:59 BP 141 / 80 (auto/); mk4 13:59 Pulse 92 MON; mk4 14:05 BP 125 / 80; jrd 14:13 Pulse 100 MON; mk4 14:14 BP 142 / 92 (auto/); mk4 14:29 BP 143 / 86 (auto/); mk4 14:29 Pulse 98 MON; mk4 14:44 Pulse 98 MON; mk4 14:44 BP 142 / 89 (auto/); mk4 14:59 BP 142 / 82 (auto/); mk4 14:59 Pulse 96 MON; mk4 15:14 BP 140 / 79 (auto/); mk4 15:14 Pulse 96 MON; mk4 15:29 BP 144 / 95 (auto/); mk4 15:29 Pulse 94 MON; mk4 15:44 BP 147 / 100 (auto/); mk4 15:44 Pulse 96 MON; mk4 15:59 BP 141 / 84 (auto/); mk4 15:59 Pulse 92 MON; Pulse Ox 95% ; mk4 16:14 BP 135 / 82 (auto/); mk4 16:14 Pulse 92 MON; Pulse Ox 94% ; mk4 16:29 BP 151 / 98 (auto/); mk4 16:29 Pulse 96 MON; Pulse Ox 93% ; mk4 16:44 BP 151 / 99 (auto/); mk4 16:44 Pulse 96 MON; Pulse Ox 94% ; mk4 16:49 BP 164 / 105 (auto/); mk4 16:51 Pulse 96 MON; Pulse Ox 94% ; mk4 16:59 BP 154 / 102 (auto/); mk4 16:59 Pulse 92 MON; Pulse Ox 95% ; mk4 17:14 BP 153 / 110 (auto/); mk4 17:14 Pulse 96 MON; Pulse Ox 97% ; mk4 17:29 Pulse 96 MON; Pulse Ox 96% ; mk4 17:29 BP 159 / 108 (auto/); mk4 17:44 BP 152 / 107 (auto/); mk4 17:44 Pulse 92 MON; Pulse Ox 95% ; mk4 17:59 BP 154 / 109 (auto/); mk4 17:59 Pulse 90 MON; Pulse Ox 96% ; mk4 10:48 Body Mass Index 40.39 (103.42 kg, 160.02 cm) ct3 Vitals: 10:48 Log In Time: May 20, 2016 at 10:46. ct3 10:48 RN notified that patient meets Red Flag criteria. ct3 ED Course: 10:47 Patient visited by Irlanda Block PCA. ct3 10:47 Patient moved to Waiting ct3 10:48 No Pcp is Private Physician. ct3 10:56 Triage Initiated dwg 10:59 Patient moved to 13 dw 11:00 The patient / caregiver is instructed regarding the plan of care and ED course. mk4 11:00 background check coordinator on. Pulse ox on. NIBP on. mk4 11:00 No procedures done that require assistance. mk4 11:02 Lesly Collins MD is Attending Physician. sd1 11:02 Patient visited by Lesly Collins MD. sd1 11:15 Inserted saline lock: 18 gauge in left antecubital area and blood collected. The dy patient tolerated the procedure well. 11:17 Patient visited by Meli Browning PCA. jlf 11:17 Lactic Acid (Lucia tube on ice) Sent. dy 11:17 -Blood Culture Sent. dy 11:17 B-Type Natiuretic Peptide Sent. dy 11:17 Basic Metabolic Profile Sent. dy 11:17 CBC with Diff Sent. dy 11:17 Cardiac Injury Profile Sent. dy 11:17 Troponin Sent. dy 11:18 EKG done. (by ED staff). Reviewed by Lesly Collins MD. jlf 11:55 Patient visited by Celi Wynn RN. mk4 12:20 Chest, 1 View Returned. EDMS 12:31 Patient visited by Celi Wynn RN. mk4 12:49 [facility] Payment Agreement was scanned into [facility] and attached to record. jp5 13:06 Patient visited by Meli Browning PCA. jlf 13:16 CT Chest Angio R/O PE Returned. EDMS 13:39 Patient visited by Celi Wynn RN. mk4 14:04 Patient visited by Meli Browning PCA. jlf 14:05 Patient visited by Escobar Austin PCA. jrd 14:32 Patient visited by Meli Browning PCA. jlf 15:15 Patient visited by Celi Wynn RN. mk4 15:50 Gissell Chavez is Hospitalizing Provider. sd1 17:41 Written Provider Order was scanned into [facility] and attached to record. lbd 05/21 11:52 T-Sheet-- Draft Copy was scanned into [facility] and attached to record. gb Administered Medications: 05/20 11:25 Drug: carvedilol 25 mg [carvedilol 6.25 mg tablet (4 tabs)] Route: PO; dy 11:37 Not Given (wrong drug ordered): Losartan 80 mg PO once dy 11:40 Drug: Valsartan 80 mg [valsartan 80 mg tablet (1 tabs)] Route: PO; mk4 13:31 Drug: Albuterol-Ipratropium 3 ml [ipratropium-albuterol 0.5 mg-3 mg(2.5 mg base)/3 mL js11 nebulization soln (3 mL)] Route: Inhalation; 15:58 Drug: Aspirin 81 mg [aspirin 81 mg chewable tablet (1 tabs)] Route: PO; mk4 17:56 Drug: morphine 2 mg [morphine 2 mg/mL intravenous cartridge (1 mL)] Route: IVP; Site: mk4 left antecubital; 17:56 Drug: Labetalol 10 mg [labetalol 5 mg/mL intravenous solution (2 mL)] Route: IVP; Rate: mk4 bolus; Infused Over: 2 mins; Site: left antecubital; 17:57 Drug: Labetalol 100 mg [labetalol 100 mg tablet (1 tabs)] Route: PO; mk4 RT: 13:31 Initial Med Neb Given as ordered Patient was instructed and evaluated on procedure js11 Patient tolerated procedure well without adverse effect. Respiratory: Breath sounds are diminished bilaterally. Order Results: Lab Order: B-Type Natiuretic Peptide; SPEC'M 05/20/16 11:15 Test: BRAIN NATRIURETIC PEPTIDE; Value: 399; Range: <100; Abnormal: Above high normal; Units: PG/ML; Status: F Lab Order: Basic Metabolic Profile; SPEC'M 05/20/16 11:15 Test: GLUCOSE, FASTING; Value: 245; Range: 70-105; Abnormal: Above high normal; Units: MG/DL; Status: F Test: BLOOD UREA NITROGEN; Value: 14; Range: 7-18; Units: MG/DL; Status: F Test: CREATININE FOR GFR; Value: 0.98; Range: 0.70-1.30; Units: MG/DL; Status: F Test: GLOMERULAR FILTRATION RATE; Value: > 60.0; Range: >60; Status: F Test: SODIUM LEVEL; Value: 140; Range: 136-145; Units: MEQ/L; Status: F Test: POTASSIUM SERUM; Value: 4.2; Range: 3.5-5.1; Units: MEQ/L; Status: F Test: CHLORIDE LEVEL; Value: 105; Range: 98-107; Units: MEQ/L; Status: F Test: CARBON DIOXIDE LEVEL; Value: 26; Range: 21-32; Units: MEQ/L; Status: F Test: ANION GAP; Value: 9; Range: 8-16; Units: MEQ/L; Status: F Test: CALCIUM LEVEL; Value: 9.1; Range: 8.5-10.1; Units: MG/DL; Status: F Test Note: ; Units are mL/min/1.73 m2 Chronic Kidney Disease Staging per NKF: Stage I & II GFR >=60 Normal to Mildly Decreased Stage III GFR 30-59 Moderately Decreased Stage IV GFR 15-29 Severely Decreased Stage V GFR <15 Very Little GFR Left ESRD GFR <15 on REMOTE MORTGAGE 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 Lab Order: CBC with Diff; SPEC'M 05/20/16 11:15 Test: WHITE BLOOD COUNT; Value: 9.6; Range: 4.0-10.0; Units: K/mm3; Status: F Test: RED BLOOD COUNT; Value: 4.92; Range: 4.30-6.10; Units: M/mm3; Status: F Test: HEMOGLOBIN; Value: 15.6; Range: 14.0-18.0; Units: g/dl; Status: F Test: HEMATOCRIT; Value: 42.6; Range: 42.0-52.0; Units: %; Status: F Test: MEAN CORPUSCULAR VOLUME; Value: 86.6; Range: 80.0-96.0; Units: fl; Status: F Test: MEAN CORPUSCULAR HEMOGLOBIN; Value: 31.7; Range: 27.0-33.0; Units: pg; Status: F Test: MEAN CORPUSCULAR HGB CONC; Value: 36.1; Range: 32.0-36.5; Units: g/dl; Status: F Test: RED CELL DISTRIBUTION WIDTH; Value: 12.9; Range: 11.5-14.5; Units: %; Status: F Test: PLATELET COUNT, AUTOMATED; Value: 183; Range: 150-450; Units: k/mm3; Status: F Test: NEUTROPHILS %; Value: 60.5; Range: 36.0-66.0; Units: %; Status: F Test: LYMPH %; Value: 25.6; Range: 24.0-44.0; Units: %; Status: F Test: MONO %; Value: 4.8; Range: 0.0-5.0; Units: %; Status: F Test: EOS %; Value: 6.0; Range: 0.0-3.0; Abnormal: Above high normal; Units: %; Status: F Test: BASO %; Value: 1.3; Range: 0.0-1.0; Abnormal: Above high normal; Units: %; Status: F Test: LARGE UNSTAINED CELL %; Value: 1.8; Range: 0.0-4.0; Units: %; Status: F Test: NEUTROPHILS #; Value: 5.8; Range: 1.8-7.7; Units: K/mm3; Status: F Test: LYMPH #; Value: 2.6; Range: 1.5-4.5; Units: K/mm3; Status: F Test: MONO #; Value: 0.5; Range: 0.0-0.8; Units: K/mm3; Status: F Test: EOS #; Value: 0.6; Range: 0.0-0.50; Abnormal: Above high normal; Units: K/mm3; Status: F Test: BASO #; Value: 0.1; Range: 0.0-0.2; Units: K/mm3; Status: F Test: LARGE UNSTAINED CELL #; Value: 0.2; Range: 0.0-0.4; Units: K/mm3; Status: F Lab Order: Cardiac Injury Profile; SPEC'M 05/20/16 11:15 Test: CPK CREATINE PHOSPHOKINASE; Value: 111; Range: 39-308; Units: U/L; Status: F Test: CK-MB VALUE MASS; Value: 3.5; Range: 0.0-3.6; Units: NG/ML; Status: F Test: MB/CK RELATIVE INDEX; Value: 3.15; Range: < OR =4; Status: F Test Note: ; DIAGNOSIS CRITERIA MMB ng/ml Relative Index (RI) NON-AMI < or = 5 N/A LUCIA ZONE > 5 < or = 4 AMI > 5 > 4 Lab Order: Troponin; SPEC'M 05/20/16 11:15 Test: TROPONIN I; Value: 0.20; Range: < 0.10; Abnormal: Above high normal; Units: NG/ML; Status: F Test Note: ; Troponin I Reference Interval for [place]: 99th Percentile= 0.00-0.045 ng/ml Risk Stratification: <= 0.10 ng/ml Decreased Risk for Adverse Clinical Events. 0.10-1.50 ng/ml Increased Risk for Adverse Clinical Events. Evaluation of additional criterion and/or repeat testing in 2-6 hours is suggested to rule out myocardial damage. >= 1.50 ng/ml Indicative of Myocardial Injury. Lab Order: Lactic Acid (Lucia tube on ice); SPEC' 05/20/16 11:15 Test: LACTIC ACID LEVEL, LACTATE; Value: 1.7; Range: 0.4-2.0; Units: MMOL/L; Status: F Lab Order: CARDIAC INJURY PROFILE; [facility]' 05/20/16 14:01 Test: CPK CREATINE PHOSPHOKINASE; Value: 95; Range: 39-308; Units: U/L; Status: F Test: CK-MB VALUE MASS; Value: 3.1; Range: 0.0-3.6; Units: NG/ML; Status: F Test: MB/CK RELATIVE INDEX; Value: 3.26; Range: < OR =4; Status: F Test Note: ; DIAGNOSIS CRITERIA MMB ng/ml Relative Index (RI) NON-AMI < or = 5 N/A LUCIA ZONE > 5 < or = 4 AMI > 5 > 4 Lab Order: TROPONIN; [facility]' 05/20/16 14:01 Test: TROPONIN I; Value: 0.19; Range: < 0.10; Abnormal: Above high normal; Units: NG/ML; Status: F Test Note: ; Troponin I Reference Interval for [place]: 99th Percentile= 0.00-0.045 ng/ml Risk Stratification: <= 0.10 ng/ml Decreased Risk for Adverse Clinical Events. 0.10-1.50 ng/ml Increased Risk for Adverse Clinical Events. Evaluation of additional criterion and/or repeat testing in 2-6 hours is suggested to rule out myocardial damage. >= 1.50 ng/ml Indicative of Myocardial Injury. Radiology Order: Chest, 1 View Test: Chest, 1 View REASON FOR EXAMINATION: Shortness of Breath; Chest one-view; ; HISTORY: Shortness of breath; ; Comparison: 02/08/2016; ; The lungs are clear. The cardiac silhouette is enlarged. The pulmonary; vasculature is normal in appearance.; ; Impression: Cardiomegaly.; ; ; Signed by; Lyndon Rene MD 05/20/2016 11:24 A; Radiology Order: CT Chest Angio R/O PE Test: CT Chest Angio R/O PE REASON FOR EXAMINATION: Shortness of Breath; Clinical: Acute chest pain and shortness of breath.; ; Technique: Axial contrast enhanced images from the thoracic inlet to the upper; abdomen using 100 ml Isovue 370 intravenous contrast material with coronal and; sagittal re-formations.; ; Findings: Satisfactory enhancement of the pulmonary vasculature is achieved and; no filling defects are identified to suggest pulmonary embolus. Thoracic aorta; is normal caliber without aneurysm or dissection. Heart and pericardium are; normal. Bilateral lung hawkins are well aerated and clear without acute pulmonary; parenchymal consolidation or atelectasis. No nodule or mass lesion. No pleural; effusion/reaction. No pneumothorax. No adenopathy.; ; Impression:; No evidence for pulmonary embolus.; No acute pleuroparenchymal or mediastinal process.; ; ; Signed by; Uche Silva MD 05/20/2016 12:29 P; Outcome: 15:51 Decision to Hospitalize by Provider. sd1 18:06 Discharge Assessment: Patient awake, alert and oriented x 3. No cognitive and/or [facility] functional deficits noted. Patient verbalized understanding of disposition instructions. Patient awake and alert. Condition: good Condition: stable. 18:07 Discharge Assessment: patient administered narcotics - yes. Patient was admitted to the [address] or transferred to another facility. The following High Risk Discharge criteria are identified: None. CT Study completed. 18:18 Admission hand-off: Report called to shital in ICU. Property :Personal belongings [facility] accompany Pt. 18:35 Patient left the ED. [facility] Signatures: Dispatcher [employer] EDMS Lesly Collins MD MD sd1 Gloria Mathews, Veneer Stapler Unit lbd Ritchie Moreira, RN RN Veronica Yan, Shine Reg Cipriano Aponte, RN Irlanda Crowe, ATMOSPHERIC DRIER TENDER ATMOSPHERIC DRIER TENDER ct3 Dillon Busch js11 Celi Wynn RN RN 4 Meli Browning, ATMOSPHERIC DRIER TENDER ATMOSPHERIC DRIER TENDER jlf Escobar Austin, ATMOSPHERIC DRIER TENDER ATMOSPHERIC DRIER TENDER jrd Renee Gamez jp5 Corrections: (The following items were deleted from the chart) 17:43 17:41 General: Appears mk4 mk4 Chart Complete MTDD
[2016-05-22 20:00] VITALS: BP 133/81
[2016-05-22] MEDS: LISINOPRIL 40 MG TAB PO SCH (21:02)
[2016-05-23] VITALS (7 sets, daily range): BP systolic 104–129; BP diastolic 63–77
[2016-05-23 05:17] LABS: MEAN CORPUSCULAR HEMOGLOBIN 32.4 pg (27.0-33.0); MEAN CORPUSCULAR HGB CONC 36.5 g/dl (32.0-36.5); MEAN CORPUSCULAR VOLUME 88.8 fl (80.0-96.0); RED CELL DISTRIBUTION WIDTH 13.2 % (11.5-14.5); WHITE BLOOD COUNT 7.2 K/mm3 (4.0-10.0)
[2016-05-23 05:27] LABS: ANION GAP 8 MEQ/L (8-16); BLOOD UREA NITROGEN 24 MG/DL (7-18); CALCIUM LEVEL 8.3 MG/DL (8.5-10.1); CARBON DIOXIDE LEVEL 27 MEQ/L (21-32); CHLORIDE LEVEL 101 MEQ/L (98-107); CREATININE FOR GFR 1.07 MG/DL (0.70-1.30); GLOMERULAR FILTRATION RATE > 60.0 (>60); GLUCOSE, FASTING 213 MG/DL (70-105); MAGNESIUM LEVEL 1.8 MG/DL (1.8-2.4); POTASSIUM SERUM 4.1 MEQ/L (3.5-5.1); SODIUM LEVEL 136 MEQ/L (136-145)
[2016-05-23] MEDS: HumaLOG INSULIN (NovoLOG) PER UNIT SC SCH ×4 (07:29→21:00)
[2016-05-23] MEDS: ACETAMINOPHEN TAB 650MG DOSE (2X325MG) PO PRN (07:29)
[2016-05-23] MEDS: LEVEMIR (INSULIN DETEMIR) 1 UNITS/0.01ML SC SCH (08:17)
[2016-05-23] MEDS: AUGMENTIN 875 MG TAB PO SCH ×2 (08:17→21:28)
[2016-05-23] MEDS: SPIRONOLACTONE 25 MG TAB PO SCH (08:18)
[2016-05-23] MEDS: FLUTICASONE PROP 0.05% NASAL SPRAY 16 GM (FLONASE) SCH ×2 (08:18→21:30)
[2016-05-23] MEDS: ASPIRIN 81 MG CHEW TABLET PO SCH (08:18)
[2016-05-23] MEDS: hydroCHLOROthiazide 25 MG TAB PO SCH (08:18)
[2016-05-23] MEDS: LABETALOL 200 MG TAB PO SCH ×2 (08:18→21:29)
[2016-05-23] MEDS: LORazepam 0.5 MG TAB PO PRN ×2 (13:26→21:28)
--- NOTE | 2016-05-23 14:52 | IPNPDOC ---
Text Note Date of Service The patient was seen on 05/23/16 at 14:51. NOTE Subjective: Shortness of breath is improved. No recurrent episodes of V. tach. Objective: Vitals: (see below) General: No acute distress, laying comfortably in bed. HEENT: Moist mucous membranes. Neck: No JVD or lymphadenopathy Cardiac: RRR, No murmurs Pulm: Coarse crackles at the bases b/l. No wheezing, no rhonchi Abd: NT/ND + BS Ext: Trace edema BLE. No cyanosis Labs (see below) Images: CXR 05/20/16 Impression: Cardiomegaly. CTA 05/20/16 Impression: No evidence for pulmonary embolus. No acute pleuroparenchymal or mediastinal process. Echocardiogram on 05/21/16 CONCLUSIONS: 1. Mild concentric left ventricle hypertrophy. Severe reduction in overall LV systolic function. Left ventricular ejection fraction (LVEF) 30% by visual estimate. Multiple regional wall motion abnormalities. Grade I LV diastolic dysfunction. Probable akinesis involving the anterior wall from base to apex, anteroseptal region and intraseptal region from base to apex and the entire left ventricle apex. The inferior wall was probably hypokinetic from base to apex. The basal and mid anterolateral segments were normal kinetic. The basal inferolateral segment was normal kinetic and the mid inferolateral segment was probably hypokinetic. No LV thrombus. 2. Moderate left atrial dilatation. 3. Structurally and functionally normal cardiac valves. 4. Suggestive of normal pulmonary artery systolic pressure. Assessment/Plan 1. Acute Decompensated Systolic Heart Failure, Recent EF noted to be 35-40% per medical records. Prior CA per medical records. Patient was also hypertensive on presentation. Blood pressure is better controlled with current regimen. His shortness breath has improved. We'll continue Lasix, beta omar, valsartan, spironolactone. Apparently patient has been followed by Dr. Li with a plan for an AICD before he lost his insurance, however when I spoke to , he said that the patient has been discharged in the clinic. We are working on getting him a LifeVest before discharge, which he is to wear daily until he is able to get the AICD. Will need outpatient EP evaluation for AICD. 2. Ventricular tachycardia- patient had symptomatic episode today with 11 beats. Potassium and magnesium have been replaced. No acute ST changes. Echocardiogram today. Appreciate Dr. Phelps's input. Continue current meds. Valsartan has been increased. If the patient's blood pressure does drop, we will discontinue HCTZ. 3. Hypertensive urgency- better controlled with current regimen. 4. Type 2 diabetes mellitus A1c 7.4. Sliding scale insulin as well as consistent carbohydrate diet. Metformin on hold. 5. Acute sinusitis- on Augmentin. DVT prophy: Lovenox Currently working to get him a LifeVest as well as medical care on discharge, as he does not have insurance. VS,Fishbone, I+O VS, Fishbone, I+O Laboratory Tests 05/23/16 04:39 Calcium Level 8.3 L, Red Blood Count 4.50, Mean Corpuscular Volume 88.8, Mean Corpuscular Hemoglobin 32.4, Mean Corpuscular Hemoglobin Concent 36.5, Red Cell Distribution Width 13.2 Vital Signs Date Time Temp Pulse Resp B/P Pulse Ox O2 Delivery O2 Flow Rate FiO2 05/23/16 12:00 96.8 87 18 104/64 97 Room Air 05/21/16 14:19 1.0 I&O- Last 24 Hours up to 6 AM 05/23/16 06:00 Intake Total 1960 ml Output Total 1200 ml Balance 760 ml ELLYN SIMMS MD May 23, 2016 14:52
[2016-05-23 16:04] LABS: BASO # 0.1 K/mm3 (0.0-0.2); EOS # 0.6 K/mm3 (0.0-0.50); EOS % 7.8 % (0.0-3.0); LARGE UNSTAINED CELL # 0.3 K/mm3 (0.0-0.4); LARGE UNSTAINED CELL % 3.7 % (0.0-4.0); LYMPH # 2.3 K/mm3 (1.5-4.5); LYMPH % 31.9 % (24.0-44.0); MEAN CORPUSCULAR HEMOGLOBIN 32.2 pg (27.0-33.0); MEAN CORPUSCULAR HGB CONC 35.5 g/dl (32.0-36.5); MEAN CORPUSCULAR VOLUME 90.7 fl (80.0-96.0); MONO # 0.5 K/mm3 (0.0-0.8); MONO % 6.9 % (0.0-5.0); NEUTROPHILS # 3.5 K/mm3 (1.8-7.7); NEUTROPHILS % 48.8 % (36.0-66.0); PLATELET COUNT, AUTOMATED 184 k/mm3 (150-450); RED CELL DISTRIBUTION WIDTH 12.3 % (11.5-14.5); WHITE BLOOD COUNT 7.2 K/mm3 (4.0-10.0)
[2016-05-23] MEDS: ENOXAPARIN 40 MG/0.4 ML SYRINGE (J1650) SC SCH (17:28)
[2016-05-23] MEDS: LISINOPRIL 40 MG TAB PO SCH (21:29)
[2016-05-24] VITALS: BP 120/68
--- NOTE | 2016-05-24 02:19 | IPN ---
DATE OF SERVICE: 05/23/2016 Mr. Zhou Grubbs was seen earlier this morning, he was sitting in his bed in no acute distress at rest. He was looking forward to go home, waiting for the LifeVest, which he has to wear in view of his left ventricular systolic dysfunction that was estimated to be 30% by echocardiogram on 05/21/2016. His blood pressure has been under control with current medications. His losartan was changed to lisinopril because of his medical insurance coverage. He has been ambulating. PHYSICAL EXAMINATION: Patient is alert and oriented, in no acute distress at rest. His vital signs this morning when I saw him revealed a blood pressure of 118/73 with a pulse of 100, respirations 18, and his temperature was 96 degrees Fahrenheit with an oxygen saturation of 98% on room air. He has a positive fluid balance of 870 mL for 05/22/2016. Examination of the head, ears, eyes, nose and throat: Atraumatic. Neck is supple. No jugular venous distention (JVD). The lungs did not reveal any wheezing or crackles. The heart examination revealed normal S1, S2 without gallops. The point of maximal impulse (PMI) is displaced inferiorly and laterally. There is no rub. I could not appreciate any murmurs. Abdomen is soft and nontender, bowel sounds are active. Extremities reveal no pedal edema. Neurological examination grossly is negative for focal deficit. LABORATORIES: CBC done today revealed a WBC of 7.2, hemoglobin 15.4, hematocrit 43.5, and platelets 184,000. BMP revealed a sodium of 136, potassium 4.1, chloride 101, CO2 27, BUN 24, creatinine 1.07, GFR more than 60, fasting glucose 213, and calcium 8.3. Serum magnesium is 1.8. 1. Mr. Zhou Grubbs is stable from a cardiac point of view on current medications and he will continue the same and if he is discharged home today, he will need a BMP done in about a week to check his BUN, creatinine and serum potassium. The plan was initially to discharge him on a LifeVest, but it seems that because of his lack of medical insurance, it is still pending. This was discussed earlier today with his hospitalist and also I have talked to the electronics parts sales representative from the [employer], [employer] and at this present time, they are waiting and the plan was to discuss with Medicaid, but it seemed that they will not have an answer until this coming Thursday. At this present time, Mr. Grubbs is not quite willing to stay another 3 days in the hospital, but he has not manifested any desire to sign against medical advice (AMA). 2. Status post hypertensive urgency, under control with current medications. 3. History of diabetes mellitus, being addressed. 4. Status post ventricular tachycardia, symptomatic. 5. Obesity and sleep apnea. It was a pleasure to participate in the care of Mr. Zhou Grubbs for his underlying cardiac condition. I will continue to monitor along with you while in the hospital and as needed. Please do not hesitate to call if any questions.
[2016-05-24 04:00] VITALS: BP 120/57
[2016-05-24 07:50] LABS: MEAN CORPUSCULAR HEMOGLOBIN 32.2 pg (27.0-33.0); MEAN CORPUSCULAR VOLUME 89.3 fl (80.0-96.0); RED CELL DISTRIBUTION WIDTH 12.3 % (11.5-14.5)
[2016-05-24 08:11] LABS: ANION GAP 8 MEQ/L (8-16); BLOOD UREA NITROGEN 21 MG/DL (7-18); CARBON DIOXIDE LEVEL 27 MEQ/L (21-32); CHLORIDE LEVEL 106 MEQ/L (98-107); CREATININE FOR GFR 1.03 MG/DL (0.70-1.30); GLOMERULAR FILTRATION RATE > 60.0 (>60); GLUCOSE, FASTING 202 MG/DL (70-105); MAGNESIUM LEVEL 1.8 MG/DL (1.8-2.4); POTASSIUM SERUM 4.5 MEQ/L (3.5-5.1); SODIUM LEVEL 141 MEQ/L (136-145)
[2016-05-24] MEDS: ASPIRIN 81 MG CHEW TABLET PO SCH (08:23)
[2016-05-24] MEDS: AUGMENTIN 875 MG TAB PO SCH ×2 (08:23→20:52)
[2016-05-24] MEDS: hydroCHLOROthiazide 12.5 MG CAPSULE PO SCH (08:23)
[2016-05-24] MEDS: LEVEMIR (INSULIN DETEMIR) 1 UNITS/0.01ML SC SCH (08:23)
[2016-05-24] MEDS: HumaLOG INSULIN (NovoLOG) PER UNIT SC SCH ×4 (08:23→20:52)
[2016-05-24] MEDS: SPIRONOLACTONE 25 MG TAB PO SCH (08:23)
[2016-05-24] MEDS: LABETALOL 200 MG TAB PO SCH ×2 (08:24→20:52)
[2016-05-24] MEDS: FLUTICASONE PROP 0.05% NASAL SPRAY 16 GM (FLONASE) SCH ×2 (08:25→20:52)
[2016-05-24 12:00] VITALS: BP 122/64
--- NOTE | 2016-05-24 12:45 | IPNPDOC ---
Text Note Date of Service The patient was seen on 05/24/16 at 12:43. NOTE Subjective: Shortness of breath is improved. Has an episode of nonsustained V. tach. Objective: Vitals: (see below) General: No acute distress, laying comfortably in bed. HEENT: Moist mucous membranes. Neck: No JVD or lymphadenopathy Cardiac: RRR, No murmurs Pulm: Coarse crackles at the bases b/l. No wheezing, no rhonchi Abd: NT/ND + BS Ext: Trace edema BLE. No cyanosis Labs (see below) Images: CXR 05/20/16 Impression: Cardiomegaly. CTA 05/20/16 Impression: No evidence for pulmonary embolus. No acute pleuroparenchymal or mediastinal process. Echocardiogram on 05/21/16 CONCLUSIONS: 1. Mild concentric left ventricle hypertrophy. Severe reduction in overall LV systolic function. Left ventricular ejection fraction (LVEF) 30% by visual estimate. Multiple regional wall motion abnormalities. Grade I LV diastolic dysfunction. Probable akinesis involving the anterior wall from base to apex, anteroseptal region and intraseptal region from base to apex and the entire left ventricle apex. The inferior wall was probably hypokinetic from base to apex. The basal and mid anterolateral segments were normal kinetic. The basal inferolateral segment was normal kinetic and the mid inferolateral segment was probably hypokinetic. No LV thrombus. 2. Moderate left atrial dilatation. 3. Structurally and functionally normal cardiac valves. 4. Suggestive of normal pulmonary artery systolic pressure. Assessment/Plan 1. Acute Decompensated Systolic Heart Failure, Recent EF noted to be 35-40% per medical records. Prior [place] per medical records. Patient was also hypertensive on presentation. Blood pressure is better controlled with current regimen. His shortness breath has improved. We'll continue Lasix, beta omar, valsartan, spironolactone. Apparently patient has been followed by Dr. Li with a plan for an AICD before he lost his insurance, however when I spoke to , he said that the patient has been discharged in the clinic. We are working on getting him a LifeVest before discharge, which he is to wear daily until he is able to get the AICD. Will need outpatient EP evaluation for AICD. 2. Ventricular tachycardia- patient had symptomatic episode. Potassium and magnesium have been replaced. No acute ST changes. Echocardiogram (see above). Appreciate Dr. Phelps's input. Continue current meds. Valsartan changed lisinopril. If the patient's blood pressure does drop, we will discontinue HCTZ. 3. Hypertensive urgency- better controlled with current regimen. 4. Type 2 diabetes mellitus A1c 7.4. Sliding scale insulin as well as consistent carbohydrate diet. Metformin on hold. 5. Acute sinusitis- on Augmentin. DVT prophy: Lovenox Currently working to get him a LifeVest as well as medical care on discharge, as he does not have insurance. VS,Fishbone, I+O VS, Fishbone, I+O Laboratory Tests 05/23/16 15:30 Red Blood Count 4.79, Mean Corpuscular Volume 90.7, Mean Corpuscular Hemoglobin 32.2, Mean Corpuscular Hemoglobin Concent 35.5, Red Cell Distribution Width 12.3 , Neutrophils (%) (Auto) 48.8, Lymphocytes (%) (Auto) 31.9, Monocytes (%) (Auto ) 6.9 H, Eosinophils (%) (Auto) 7.8 H, Basophils (%) (Auto) 1.0, Neutrophils # ( Auto) 3.5, Lymphocytes # (Auto) 2.3, Monocytes # (Auto) 0.5, Eosinophils # (Auto ) 0.6 H, Basophils # (Auto) 0.1 05/24/16 07:15 Red Blood Count 4.56, Mean Corpuscular Volume 89.3, Mean Corpuscular Hemoglobin 32.2, Mean Corpuscular Hemoglobin Concent 36.0, Red Cell Distribution Width 12.3 , Calcium Level 9.0, Total Creatine Kinase 62 Vital Signs Date Time Temp Pulse Resp B/P Pulse Ox O2 Delivery O2 Flow Rate FiO2 05/24/16 09:59 93 Room Air 05/24/16 08:24 96 128/92 05/24/16 04:00 96.7 20 05/21/16 14:19 1.0 I&O- Last 24 Hours up to 6 AM 05/24/16 06:00 Intake Total 1240 ml Output Total 1550 ml Balance -310 ml ELLYN SIMMS MD May 24, 2016 12:45
[2016-05-24 16:00] VITALS: BP 139/70
[2016-05-24] MEDS: ENOXAPARIN 40 MG/0.4 ML SYRINGE (J1650) SC SCH (17:19)
[2016-05-24 20:00] VITALS: BP 136/76
[2016-05-24] MEDS: LISINOPRIL 40 MG TAB PO SCH (20:52)
[2016-05-24] MEDS: LORazepam 0.5 MG TAB PO PRN (20:52)
[2016-05-25] VITALS: BP 130/63
[2016-05-25 04:00] VITALS: BP 145/62
[2016-05-25 05:34] LABS: MEAN CORPUSCULAR HEMOGLOBIN 32.2 pg (27.0-33.0); MEAN CORPUSCULAR HGB CONC 35.6 g/dl (32.0-36.5); MEAN CORPUSCULAR VOLUME 90.4 fl (80.0-96.0); RED CELL DISTRIBUTION WIDTH 12.1 % (11.5-14.5)
[2016-05-25 05:41] LABS: ANION GAP 8 MEQ/L (8-16); BLOOD UREA NITROGEN 19 MG/DL (7-18); CARBON DIOXIDE LEVEL 26 MEQ/L (21-32); CHLORIDE LEVEL 105 MEQ/L (98-107); CREATININE FOR GFR 0.98 MG/DL (0.70-1.30); GLOMERULAR FILTRATION RATE > 60.0 (>60); GLUCOSE, FASTING 213 MG/DL (70-105); MAGNESIUM LEVEL 1.6 MG/DL (1.8-2.4); POTASSIUM SERUM 4.1 MEQ/L (3.5-5.1); SODIUM LEVEL 139 MEQ/L (136-145)
[2016-05-25] MEDS: MAG SULF 1GM/100ML (MAG RUN) 1 GM in APPROPRIATE DILUENT 1 EA IV SCH ×2 (06:37→07:48)
[2016-05-25] MEDS: HumaLOG INSULIN (NovoLOG) PER UNIT SC SCH ×4 (07:47→22:24)
[2016-05-25 08:00] VITALS: BP 128/60
[2016-05-25] MEDS ORDERED: LEVEMIR (INSULIN DETEMIR) 1 UNITS/0.01ML SC SCH (09:00)
[2016-05-25] MEDS: AUGMENTIN 875 MG TAB PO SCH ×2 (09:04→22:24)
[2016-05-25] MEDS: hydroCHLOROthiazide 12.5 MG CAPSULE PO SCH (09:04)
[2016-05-25] MEDS: ASPIRIN 81 MG CHEW TABLET PO SCH (09:04)
[2016-05-25] MEDS: LABETALOL 200 MG TAB PO SCH ×2 (09:04→22:25)
[2016-05-25] MEDS: SPIRONOLACTONE 25 MG TAB PO SCH (09:04)
[2016-05-25] MEDS: FLUTICASONE PROP 0.05% NASAL SPRAY 16 GM (FLONASE) SCH ×2 (09:05→22:25)
[2016-05-25 12:00] VITALS: BP 104/58
--- NOTE | 2016-05-25 14:07 | IPNPDOC ---
Text Note Date of Service The patient was seen on 05/25/16 at 14:07. NOTE Subjective: Shortness of breath is improved. No other episodes of nonsustained V. tach. Objective: Vitals: (see below) General: No acute distress, laying comfortably in bed. HEENT: Moist mucous membranes. Neck: No JVD or lymphadenopathy Cardiac: RRR, No murmurs Pulm: Coarse crackles at the bases b/l. No wheezing, no rhonchi Abd: NT/ND + BS Ext: Trace edema BLE. No cyanosis Labs (see below) Images: CXR 05/20/16 Impression: Cardiomegaly. CTA 05/20/16 Impression: No evidence for pulmonary embolus. No acute pleuroparenchymal or mediastinal process. Echocardiogram on 05/21/16 CONCLUSIONS: 1. Mild concentric left ventricle hypertrophy. Severe reduction in overall LV systolic function. Left ventricular ejection fraction (LVEF) 30% by visual estimate. Multiple regional wall motion abnormalities. Grade I LV diastolic dysfunction. Probable akinesis involving the anterior wall from base to apex, anteroseptal region and intraseptal region from base to apex and the entire left ventricle apex. The inferior wall was probably hypokinetic from base to apex. The basal and mid anterolateral segments were normal kinetic. The basal inferolateral segment was normal kinetic and the mid inferolateral segment was probably hypokinetic. No LV thrombus. 2. Moderate left atrial dilatation. 3. Structurally and functionally normal cardiac valves. 4. Suggestive of normal pulmonary artery systolic pressure. Assessment/Plan 1. Acute Decompensated Systolic Heart Failure, Recent EF noted to be 35-40% per medical records. Prior [place] per medical records. Patient was also hypertensive on presentation. Blood pressure is better controlled with current regimen. His shortness breath has improved. We'll continue Lasix, beta omar, valsartan, spironolactone. Apparently patient has been followed by Dr. Li with a plan for an AICD before he lost his insurance, however when I spoke to , he said that the patient has been discharged in the clinic. We are working on getting him a LifeVest before discharge, which he is to wear daily until he is able to get the AICD. Will need outpatient EP evaluation for AICD. 2. Ventricular tachycardia- patient had symptomatic episode. Potassium and magnesium have been replaced. No acute ST changes. Echocardiogram (see above). Appreciate Dr. Phelps's input. Continue current meds. Valsartan changed lisinopril. If the patient's blood pressure does drop, we will discontinue HCTZ. 3. Hypertensive urgency- better controlled with current regimen. 4. Type 2 diabetes mellitus A1c 7.4. Sliding scale insulin as well as consistent carbohydrate diet. Metformin on hold. 5. Acute sinusitis- on Augmentin. DVT prophy: Lovenox Currently working to get him a LifeVest as well as medical care on discharge, as he does not have insurance. VS,Fishbone, I+O VS, Fishbone, I+O Laboratory Tests 05/25/16 04:54 Calcium Level 9.0, Red Blood Count 4.40, Mean Corpuscular Volume 90.4, Mean Corpuscular Hemoglobin 32.2, Mean Corpuscular Hemoglobin Concent 35.6, Red Cell Distribution Width 12.1 Vital Signs Date Time Temp Pulse Resp B/P Pulse Ox O2 Delivery O2 Flow Rate FiO2 05/25/16 12:00 96.0 86 18 104/58 96 Room Air 05/21/16 14:19 1.0 I&O- Last 24 Hours up to 6 AM 05/25/16 06:00 Intake Total 1760 ml Output Total 2425 ml Balance -665 ml ELLYN SIMMS MD May 25, 2016 14:07
[2016-05-25 16:00] VITALS: BP 119/82
[2016-05-25] MEDS: ENOXAPARIN 40 MG/0.4 ML SYRINGE (J1650) SC SCH (17:22)
[2016-05-25 20:14] VITALS: BP 141/82
[2016-05-25] MEDS: LISINOPRIL 40 MG TAB PO SCH (22:24)
[2016-05-25] MEDS: LORazepam 0.5 MG TAB PO PRN (22:29)
[2016-05-26 00:58] VITALS: BP 124/72
[2016-05-26 04:52] VITALS: BP 117/73
[2016-05-26 05:41] LABS: ANION GAP 8 MEQ/L (8-16); BLOOD UREA NITROGEN 18 MG/DL (7-18); CALCIUM LEVEL 8.7 MG/DL (8.5-10.1); CARBON DIOXIDE LEVEL 27 MEQ/L (21-32); CHLORIDE LEVEL 105 MEQ/L (98-107); CREATININE FOR GFR 0.96 MG/DL (0.70-1.30); GLOMERULAR FILTRATION RATE > 60.0 (>60); GLUCOSE, FASTING 200 MG/DL (70-105); MAGNESIUM LEVEL 1.7 MG/DL (1.8-2.4); POTASSIUM SERUM 4.2 MEQ/L (3.5-5.1); SODIUM LEVEL 140 MEQ/L (136-145)
[2016-05-26 05:55] LABS: MEAN CORPUSCULAR HEMOGLOBIN 32.7 pg (27.0-33.0); MEAN CORPUSCULAR HGB CONC 36.7 g/dl (32.0-36.5); MEAN CORPUSCULAR VOLUME 89.4 fl (80.0-96.0); RED CELL DISTRIBUTION WIDTH 12.1 % (11.5-14.5); WHITE BLOOD COUNT 6.1 K/mm3 (4.0-10.0)
[2016-05-26 08:00] VITALS: BP 134/62
[2016-05-26] MEDS: AUGMENTIN 875 MG TAB PO SCH (08:31)
[2016-05-26 08:32] VITALS: BP 134/62
[2016-05-26] MEDS: HumaLOG INSULIN (NovoLOG) PER UNIT SC SCH ×2 (08:32→12:45)
[2016-05-26] MEDS: hydroCHLOROthiazide 12.5 MG CAPSULE PO SCH (08:32)
[2016-05-26] MEDS: ASPIRIN 81 MG CHEW TABLET PO SCH (08:32)
[2016-05-26] MEDS: SPIRONOLACTONE 25 MG TAB PO SCH (08:32)
[2016-05-26] MEDS: LABETALOL 200 MG TAB PO SCH (08:32)
[2016-05-26] MEDS: FLUTICASONE PROP 0.05% NASAL SPRAY 16 GM (FLONASE) SCH (08:38)
[2016-05-26] MEDS: MAG SULF 1GM/100ML (MAG RUN) 1 GM in APPROPRIATE DILUENT 1 EA IV SCH ×2 (08:38→10:04)
[2016-05-26] MEDS ORDERED: LEVEMIR (INSULIN DETEMIR) 1 UNITS/0.01ML SC SCH (09:00)
[2016-05-26] MEDS: ACETAMINOPHEN TAB 650MG DOSE (2X325MG) PO PRN (10:03)
--- NOTE | 2016-05-26 10:51 | IPNPDOC ---
[facility] Cardiology Progress Note Date of Service/Time The patient was seen on 05/26/16 at 10:36. Cardiology Progress Note SUBJECTIVE: The patient is a 46-year-old male, states that he feels well, denies shortness of breath except with extended amounts of ambulation, denies chest pain or palpitations. The biggest obstacle right now for the patient is obtaining medical health insurance to cover his current hospital stay and future healthcare needs. We are working with social work nurse now to help the patient obtain some form of health coverage. OBJECTIVE: PHYSICAL EXAMINATION: VITAL SIGNS: Please see below. GENERAL APPEARANCE: Pleasant, sitting in his chair, conversant, in no distress. HEENT:NCAT, PERRLA, nares bilaterally, moist mucous membranes, tongue midline. EOMI LUNGS: CTA B/L, no wheezing, rubs, gallops appreciated. Good air expansion bilaterally. HEART: Normal S1, normal S2, no murmurs, gallops, rubs appreciated. ABDOMEN: Obese, soft, nondistended. Nontender. SKIN: Intact EXTREMITIES: No cyanosis, clubbing, edema appreciated. NEUROLOGICAL: No focal deficits. PSYCHIATRIC: Affect is appropriate. LABORATORY WORK: Please see below. ASSESSMENT AND PLAN: The patient's most recent echocardiogram demonstrated segmental wall abnormalities with an ejection fraction of 30% and left ventricular function, due to these findings there is a suspicion of cardiac ischemia, discussed with the patient at bedside this morning and then again with his the recommendation for cardiac catheterization in [place], [place]. Also discussed with patient the cost of the procedure which could be financially burdensome or devastating to them if healthcare coverage is not obtained. Patient's expressed desire to proceed with plans for cardiac catheterization despite the cost, stating "" we will figure out a way to pay for it". At this time we are still working with social work nurse to explore potential disability/unemployment options for the patient to obtain coverage. We will contact [facility] and inform them of the patient's need for cardiac catheterization. The patient will also likely need a LifeVest as well, this is also being discussed with social work nurse and the patient. Overall the patient seems to be doing well this morning, appears that he is well compensated and able to walk fair distances without shortness of breath. No further recommendations at this time. Addendum MD Jorge: Patient has severe LV systolic dysfunction and segmental wall motion abnormalities on echocardiogram. Before pursuing placement of the external defibrillator I believe it is appropriate to evaluate coronary anatomy by angiogram. I explained the rationale to the patient. He wants to proceed. Arrangement were made to transfer patient to [facility] for coronary angiogram. Vital Signs/I&O VS/I&O Vital Signs Date Time Temp Pulse Resp B/P Pulse Ox O2 Delivery O2 Flow Rate FiO2 05/26/16 08:32 90 134/62 05/26/16 08:00 97.0 18 96 Room Air 05/21/16 14:19 1.0 I&O- Last 24 Hours up to 6 AM 05/26/16 06:00 Intake Total 1840 ml Output Total 2575 ml Balance -735 ml Laboratory Data 24H LABS Laboratory Tests 2 05/25/16 21:46: Bedside Glucose (Misc Panel) 283H 05/26/16 04:52: Anion Gap 8, Blood Urea Nitrogen 18, Creatinine 0.96, Sodium Level 140, Potassium Level 4.2, Chloride Level 105, Carbon Dioxide Level 27, Calcium Level 8.7, Glomerular Filtration Rate > 60.0, Magnesium Level 1.7L CBC/BMP Laboratory Tests 05/26/16 04:52 Calcium Level 8.7, Red Blood Count 4.37, Mean Corpuscular Volume 89.4, Mean Corpuscular Hemoglobin 32.7, Mean Corpuscular Hemoglobin Concent 36.7 H, Red Cell Distribution Width 12.1 FSBS Laboratory Tests Test 05/25/16 21:46 Range/Units Bedside Glucose (Misc Panel) 283 70-105 MG/DL Microbiology Microbiology 05/20/16 Blood Culture - Final, Complete NO GROWTH AFTER 5 DAYS 05/20/16 Blood Culture - Final, Complete NO GROWTH AFTER 5 DAYS 05/20/16 MRSA Screen - Final, Complete GME ATTESTATION GME ATTESTATION My preceptor for this patient encounter was physically present in the building during the encounter and was fully available. As needed, all aspects of the patient interview, examination, medical decision making process, and medical care plan development were reviewed and approved by the preceptor. Preceptor is aware and concurs with the plan as stated in the body of this note and will attest to such by his/her cosignature. FABBY PACHECO DO May 26, 2016 10:51 Hill Lau MD May 28, 2016 19:30
[2016-05-26] MEDS: LORazepam 0.5 MG TAB PO PRN (11:20)
--- NOTE | 2016-05-26 15:34 | DS.PDOC ---
Discharge Summary General Date of Admission May 22, 2016 at 15:07 Date of Discharge May 26, 2016 at 13:20 Attending Physician: ELLNY SIMMS MD Specialist/Consultants Involve: Hill Lau MD Discharge Summary PROCEDURES PERFORMED DURING STAY: None. COMPLICATIONS/CHIEF COMPLAINT: Hypertensive Urgency ADMISSION/DISCHARGE DIAGNOSES: 1. Acute decompensated systolic heart failure 2. Questionable ischemic cardiomyopathy 3. Nonsustained particular tachycardia 4. Hypertensive urgency 5. Diabetes mellitus 6. Acute sinusitis HISTORY OF PRESENT ILLNESS/HOSPITAL COURSE: This is a 46-year-old male past history diabetes, hypertension who presents complaining of shortness of breath and dyspnea on exertion. Patient was found to be in hypertensive urgency as well as decompensated heart failure. He was diuresed very when his blood pressure has been much controlled since admission. Echocardiogram is completed with the patient's EF noted to be 30%. He also had a few episodes of nonsustained ventricular tachycardia. His electrolyte were replaced and the patient maintained hemodynamically stable. During the course of hospital edition patient was supposed to have arrangements for a LifeVest. He was evaluated cardiology and now deemed to need a cardiac catheterization to rule out underlying coronary artery disease which may have resulted in his heart failure. Dr. Childers has arranged for transfer to [facility] that patient may have a cardiac catheterization, to ensure that revascularization was performed in the case that the patient does have underlying coronary artery disease. Patient will need to be maximized on medical management and will likely need an AICD to prevent cardiac arrest. He was also treated for his acute sinusitis with Augmentin. DISCHARGE MEDICATIONS: Please see below. ALLERGIES: Please see below. PHYSICAL EXAMINATION ON DISCHARGE: Vitals: (see below) General: No acute distress, laying comfortably in bed. HEENT: Moist mucous membranes. Neck: No JVD or lymphadenopathy Cardiac: RRR, No murmurs Pulm: Coarse crackles at the bases b/l. No wheezing, no rhonchi Abd: NT/ND + BS Ext: Trace edema BLE. No cyanosis LABORATORY DATA: Please see below. IMAGING: CXR 05/20/16 Impression: Cardiomegaly. CTA 05/20/16 Impression: No evidence for pulmonary embolus. No acute pleuroparenchymal or mediastinal process. Echocardiogram on 05/21/16 CONCLUSIONS: 1. Mild concentric left ventricle hypertrophy. Severe reduction in overall LV systolic function. Left ventricular ejection fraction (LVEF) 30% by visual estimate. Multiple regional wall motion abnormalities. Grade I LV diastolic dysfunction. Probable akinesis involving the anterior wall from base to apex, anteroseptal region and intraseptal region from base to apex and the entire left ventricle apex. The inferior wall was probably hypokinetic from base to apex. The basal and mid anterolateral segments were normal kinetic. The basal inferolateral segment was normal kinetic and the mid inferolateral segment was probably hypokinetic. No LV thrombus. 2. Moderate left atrial dilatation. 3. Structurally and functionally normal cardiac valves. 4. Suggestive of normal pulmonary artery systolic pressure. VTE Prophylaxis ordered?: Yes DISCHARGE CONDITION: Stable [facility] ACTIVITY: As tolerated DIET: Low-sodium Discharge medications Levemir 20 units subcutaneous QAM Hydrochlorothiazide 12.5 mg by mouth daily Lisinopril 40 mg daily at bedtime Labetalol 200 mg by mouth twice a day Aspirin 81 mg daily Spironolactone 25 mg by mouth daily DISCHARGE PLAN AND INSTRUCTIONS: 1. I'll obtain a PCP and tong carrier as directed by [facility]. TIME SPENT ON DISCHARGE: Greater than 30 minutes. Vital Signs/I&Os Vital Signs Date Time Temp Pulse Resp B/P Pulse Ox O2 Delivery O2 Flow Rate FiO2 05/26/16 08:32 90 134/62 05/26/16 08:00 97.0 18 96 Room Air 05/21/16 14:19 1.0 I&O- Last 24 Hours up to 6 AM 05/26/16 06:00 Intake Total 1840 ml Output Total 2575 ml Balance -735 ml Laboratory Data Labs 24H Laboratory Tests 2 05/25/16 21:46: Bedside Glucose (Misc Panel) 283H 05/26/16 04:52: Anion Gap 8, Blood Urea Nitrogen 18, Creatinine 0.96, Sodium Level 140, Potassium Level 4.2, Chloride Level 105, Carbon Dioxide Level 27, Calcium Level 8.7, Glomerular Filtration Rate > 60.0, Magnesium Level 1.7L 05/26/16 11:31: Bedside Glucose (Misc Panel) 235H CBC/BMP Laboratory Tests 05/26/16 04:52 Calcium Level 8.7, Red Blood Count 4.37, Mean Corpuscular Volume 89.4, Mean Corpuscular Hemoglobin 32.7, Mean Corpuscular Hemoglobin Concent 36.7 H, Red Cell Distribution Width 12.1 FSBS Laboratory Tests Test 05/25/16 21:46 05/26/16 11:31 Range/Units Bedside Glucose (Misc Panel) 283 235 70-105 MG/DL Microbiology Microbiology 05/20/16 Blood Culture - Final, Complete NO GROWTH AFTER 5 DAYS 05/20/16 Blood Culture - Final, Complete NO GROWTH AFTER 5 DAYS 05/20/16 MRSA Screen - Final, Complete Medications Scheduled Carvedilol (Carvedilol) 25 Mg Tab 25 MG PO BID Cinnamon Bark (Cinnamon) 500 Mg Cap 500 MG PO BID Hydrochlorothiazide (Hydrochlorothiazide) 25 Mg Tab 25 MG PO DAILY Metformin Hydrochloride (Glucophage) 1,000 Mg Tab 1,000 MG PO BID Spironolactone (Spironolactone) 25 Mg Tab 25 MG PO DAILY Valsartan (Valsartan) 80 Mg Tab 80 MG PO BID Allergies Coded Allergies: Prochlorperazine (Verified Allergy, Severe, CUTS OFF BREATHING, 08/11/12) ELLYN SIMMS MD May 26, 2016 15:34
== END 2016-05-26 13:20 | disposition short-term general hospital (02) | DRG 194 ==
LOC: M ED 10:46 → M ED INP 16:57 → M ICU 18:30 → OBSVTOIN 05-22 15:07 → M PCU 05-23 12:47
PROVIDERS: ADMIT General Practice; ATTEND Internal Medicine
DX: I50.21 Acute systolic (congestive) heart failure (principal); I26.99 Other pulmonary embolism without acute cor pulmonale; I47.2 Ventricular tachycardia; I16.0 Hypertensive urgency; E11.9 Type 2 diabetes mellitus without complications; J01.90 Acute sinusitis, unspecified; I25.5 Ischemic cardiomyopathy; Z79.899 Other long term (current) drug therapy; Z79.82 Long term (current) use of aspirin; Z88.8 Allergy status to other drugs, medicaments and biological substances; I25.2 Old myocardial infarction; I25.10 Atherosclerotic heart disease of native coronary artery without angina pectoris; M17.0 Bilateral primary osteoarthritis of knee; E66.9 Obesity, unspecified; G47.33 Obstructive sleep apnea (adult) (pediatric)

== ENCOUNTER → 2016-11-24 | Outpatient (REF) | payer OTHER ==
[~2016-11-24] MED LIST changes: +CARV25TA PO; +CINN500C9 PO; +GLUC1000 PO; +SPIR25TA2 PO; +VALS1TAB46 PO
== END ==
LOC: M LAB REF 07:33
PROVIDERS: ATTEND Family Medicine
DX: E78.2 Mixed hyperlipidemia (principal)

== ENCOUNTER → 2017-03-31 | Outpatient (REF) | payer OTHER ==
[2017-03-31 12:56] LABS: INR 0.94
== END ==
LOC: M LAB REF 12:14
PROVIDERS: ATTEND Family Medicine
DX: Z01.818 Encounter for other preprocedural examination (principal)

== ENCOUNTER 2017-05-01 11:30 | Outpatient (RCR) | payer OTHER | END 2017-05-10 | LOC: M PT 11:30 | DX: Z51.89 Encounter for other specified aftercare (principal); M25.569 Pain in unspecified knee ==

== ENCOUNTER 2017-05-13 09:35 | Outpatient (RCR) | payer MEDICAID, OTHER | END 2017-06-10 | LOC: M PT 09:35 | DX: Z51.89 Encounter for other specified aftercare (principal); M25.569 Pain in unspecified knee | CPT/HCPCS: 97010 ==

== ENCOUNTER → 2017-10-09 | Outpatient (REF) | payer OTHER ==
[2017-10-09 19:40] LABS: BACTERIA, URINE AUTO NEGATIVE (NEGATIVE); MUCUS, URINE SMALL (NEGATIVE); RBC, URINE AUTO 57 /HPF (0-3); SQUAMOUS EPITHELIAL CELL UR AU 0 /HPF (0-6); WBC, URINE AUTO 2 /HPF (0-3)
== END ==
LOC: M LAB REF 17:15
DX: R31.9 Hematuria, unspecified (principal)

== ENCOUNTER → 2017-10-20 | Outpatient (CLI) | payer OTHER ==
[2017-10-20 18:17] LABS: ANION GAP 10 MEQ/L (8-16); BLOOD UREA NITROGEN 22 MG/DL (7-18); CALCIUM LEVEL 9.6 MG/DL (8.5-10.1); CARBON DIOXIDE LEVEL 25 MEQ/L (21-32); CHLORIDE LEVEL 106 MEQ/L (98-107); CREATININE FOR GFR 1.58 MG/DL (0.70-1.30); GLOMERULAR FILTRATION RATE 50.1 (>60); GLUCOSE, FASTING 230 MG/DL (70-100); POTASSIUM SERUM 4.3 MEQ/L (3.5-5.1); SODIUM LEVEL 141 MEQ/L (136-145)
[2017-10-20 18:42] LABS: APPEARANCE, URINE HAZY (CLEAR); BACTERIA, URINE AUTO 1+ (NEGATIVE); BILIRUBIN, URINE AUTO NEGATIVE (NEGATIVE); BLOOD, URINE BLOOD 3+ (NEGATIVE); COLOR, URINE YELLOW (YELLOW); GLUCOSE, URINE (UA) AUTO NEGATIVE (NEGATIVE); KETONE, URINE AUTO NEGATIVE (NEGATIVE); LEUKOCYTE ESTERASE, URINE AUTO NEGATIVE (NEGATIVE); MUCUS, URINE SMALL (NEGATIVE); NITRITE, URINE AUTO NEGATIVE (NEGATIVE); PROTEIN, URINE AUTO NEGATIVE (NEGATIVE); RBC, URINE AUTO 115 /HPF (0-3); SPECIFIC GRAVITY URINE AUTO 1.011 (1.002-1.035); SQUAMOUS EPITHELIAL CELL UR AU 0 /HPF (0-6); UROBILINOGEN, URINE AUTO 0.2 mg/dL (0.0-2.0); WBC, URINE AUTO 1 /HPF (0-3)
== END ==
LOC: M SMT 13:38
DX: N20.0 Calculus of kidney (principal)
CPT/HCPCS: 80048

== ENCOUNTER → 2017-10-27 | Outpatient (CLI) | payer OTHER ==
[2017-10-27 20:34] LABS: APPEARANCE, URINE CLOUDY (CLEAR); BACTERIA, URINE AUTO 1+ (NEGATIVE); BILIRUBIN, URINE AUTO NEGATIVE (NEGATIVE); BLOOD, URINE BLOOD 3+ (NEGATIVE); COLOR, URINE AMBER (YELLOW); GLUCOSE, URINE (UA) AUTO NEGATIVE (NEGATIVE); KETONE, URINE AUTO TRACE mg/dL (NEGATIVE); LEUKOCYTE ESTERASE, URINE AUTO NEGATIVE (NEGATIVE); MUCUS, URINE SMALL (NEGATIVE); NITRITE, URINE AUTO NEGATIVE (NEGATIVE); PROTEIN, URINE AUTO 2+ mg/dL (NEGATIVE); RBC, URINE AUTO TNTC /HPF (0-3); SPECIFIC GRAVITY URINE AUTO 1.028 (1.002-1.035); SQUAMOUS EPITHELIAL CELL UR AU 2 /HPF (0-6); UROBILINOGEN, URINE AUTO 0.2 mg/dL (0.0-2.0); WBC, URINE AUTO 4 /HPF (0-3)
[2017-10-27 20:39] LABS: ANION GAP 9 MEQ/L (8-16); BLOOD UREA NITROGEN 20 MG/DL (7-18); CALCIUM LEVEL 9.1 MG/DL (8.5-10.1); CARBON DIOXIDE LEVEL 25 MEQ/L (21-32); CHLORIDE LEVEL 106 MEQ/L (98-107); CREATININE FOR GFR 1.61 MG/DL (0.70-1.30); GLUCOSE, FASTING 120 MG/DL (70-100); POTASSIUM SERUM 4.5 MEQ/L (3.5-5.1); SODIUM LEVEL 140 MEQ/L (136-145)
== END ==
LOC: M LAB 19:13
DX: N20.0 Calculus of kidney (principal)
CPT/HCPCS: 80048

== ENCOUNTER → 2017-11-12 | Outpatient (CLI) | payer OTHER ==
[2017-11-12 19:38] LABS: APPEARANCE, URINE HAZY (CLEAR); BACTERIA, URINE AUTO NEGATIVE (NEGATIVE); BILIRUBIN, URINE AUTO NEGATIVE (NEGATIVE); BLOOD, URINE BLOOD 3+ (NEGATIVE); COLOR, URINE YELLOW (YELLOW); GLUCOSE, URINE (UA) AUTO NEGATIVE (NEGATIVE); KETONE, URINE AUTO NEGATIVE (NEGATIVE); LEUKOCYTE ESTERASE, URINE AUTO NEGATIVE (NEGATIVE); MUCUS, URINE SMALL (NEGATIVE); NITRITE, URINE AUTO NEGATIVE (NEGATIVE); PROTEIN, URINE AUTO 1+ mg/dL (NEGATIVE); RBC, URINE AUTO TNTC /HPF (0-3); SQUAMOUS EPITHELIAL CELL UR AU 0 /HPF (0-6); UROBILINOGEN, URINE AUTO 0.2 mg/dL (0.0-2.0); WBC, URINE AUTO 1 /HPF (0-3)
[2017-11-12 19:50] LABS: ANION GAP 7 MEQ/L (8-16); BLOOD UREA NITROGEN 24 MG/DL (7-18); CALCIUM LEVEL 8.9 MG/DL (8.5-10.1); CARBON DIOXIDE LEVEL 29 MEQ/L (21-32); CHLORIDE LEVEL 105 MEQ/L (98-107); CREATININE FOR GFR 1.53 MG/DL (0.70-1.30); GLUCOSE, FASTING 149 MG/DL (70-100); POTASSIUM SERUM 4.3 MEQ/L (3.5-5.1); SODIUM LEVEL 141 MEQ/L (136-145)
== END ==
LOC: M LAB 18:57
DX: N20.0 Calculus of kidney (principal)
CPT/HCPCS: 80048

== ENCOUNTER → 2017-12-22 | Outpatient (CLI) | payer OTHER ==
[2017-12-22 11:07] LABS: ESTIMATED AVERAGE GLUCOSE 148 MG/DL (60-110); HEMOGLOBIN A1c 6.8 %
== END ==
LOC: M LAB 09:06
DX: N20.1 Calculus of ureter (principal); Z01.818 Encounter for other preprocedural examination
CPT/HCPCS: 83036

== ENCOUNTER → 2017-12-22 | Outpatient (CLI) | payer OTHER ==
[2017-12-22 10:03] LABS: HEMATOCRIT 37.6 % (42.0-52.0); HEMOGLOBIN 13.3 g/dl (13.5-17.5); MEAN CORPUSCULAR HEMOGLOBIN 32.4 pg (27.0-33.0); MEAN CORPUSCULAR HGB CONC 35.4 g/dl (32.0-36.5); MEAN CORPUSCULAR VOLUME 91.7 fl (80.0-96.0); PLATELET COUNT, AUTOMATED 167 10^3/uL (150-450); RED CELL DISTRIBUTION WIDTH 12.1 % (11.5-14.5); WHITE BLOOD COUNT 6.8 10^3/uL (4.0-10.0)
[2017-12-22 10:13] LABS: APPEARANCE, URINE CLEAR (CLEAR); BACTERIA, URINE AUTO NEGATIVE (NEGATIVE); BILIRUBIN, URINE AUTO NEGATIVE (NEGATIVE); BLOOD, URINE BLOOD NEGATIVE (NEGATIVE); COLOR, URINE YELLOW (YELLOW); GLUCOSE, URINE (UA) AUTO NEGATIVE (NEGATIVE); KETONE, URINE AUTO NEGATIVE (NEGATIVE); LEUKOCYTE ESTERASE, URINE AUTO NEGATIVE (NEGATIVE); MUCUS, URINE SMALL (NEGATIVE); NITRITE, URINE AUTO NEGATIVE (NEGATIVE); PROTEIN, URINE AUTO NEGATIVE (NEGATIVE); RBC, URINE AUTO 0 /HPF (0-3); SPECIFIC GRAVITY URINE AUTO 1.021 (1.002-1.035); SQUAMOUS EPITHELIAL CELL UR AU 0 /HPF (0-6); UROBILINOGEN, URINE AUTO 0.2 mg/dL (0.0-2.0); WBC, URINE AUTO 0 /HPF (0-3)
[2017-12-22 10:16] LABS: INR 1.08; PROTHROMBIN TIME 14.2 SECONDS (12.1-14.4)
[2017-12-22 10:17] LABS: PARTIAL THROMBOPLASTIN TIME 24.1 SECONDS (25.4-37.6)
[2017-12-22 10:37] LABS: ANION GAP 8 MEQ/L (8-16); BLOOD UREA NITROGEN 19 MG/DL (7-18); CALCIUM LEVEL 9.1 MG/DL (8.5-10.1); CARBON DIOXIDE LEVEL 25 MEQ/L (21-32); CHLORIDE LEVEL 106 MEQ/L (98-107); CREATININE FOR GFR 1.29 MG/DL (0.70-1.30); GLOMERULAR FILTRATION RATE > 60.0 (>60); GLUCOSE, FASTING 145 MG/DL (70-100); POTASSIUM SERUM 4.6 MEQ/L (3.5-5.1); SODIUM LEVEL 139 MEQ/L (136-145)
== END ==
LOC: M LAB 09:01
DX: N20.0 Calculus of kidney (principal); Z01.818 Encounter for other preprocedural examination
CPT/HCPCS: 71046

== ENCOUNTER → 2017-12-28 | Day surgery (SDC) | payer OTHER ==
[2017-12-28 13:24] LABS: BEDSIDE GLUCOSE 149 MG/DL (70-105)
== END | disposition home or self-care (01) ==
LOC: M SDC 11:54
DX: N20.0 Calculus of kidney (principal); Z53.29 Procedure and treatment not carried out because of patient's decision for other reasons

== ENCOUNTER 2018-01-08 12:55 | Day surgery (SDC) | payer OTHER ==
[2018-01-08 13:49] LABS: BEDSIDE GLUCOSE 155 MG/DL (70-105)
[2018-01-08] MEDS: LR 1,000 ML IV ×2 (16:00→18:46)
[2018-01-08] MEDS ORDERED: MIDAZOLAM INJ 2 MG/2 ML VIAL (J2250) As Ordered ×2 (16:06→18:36)
[2018-01-08] MEDS: MIDAZOLAM INJ 2 MG/2 ML VIAL (J2250) IV ×2 (16:10→16:54)
[2018-01-08] MEDS: CONRAY-60 60% 50ML VIAL (Q9961) As Ordered (17:54)
[2018-01-08] MEDS ORDERED: dexameTHASONE 4 MG/ML 1ML VIAL (J1100) As Ordered (18:36)
[2018-01-08] MEDS ORDERED: fentaNYL 250 MCG/5 ML INJECTION (J3010) As Ordered (18:36)
[2018-01-08] MEDS ORDERED: PROPOFOL 200 MG/20 ML VIAL As Ordered (18:36)
[2018-01-08] MEDS ORDERED: LIDOCAINE 2% INJ 100 MG/5 ML SDV (FOR ANES.) As Ordered (18:36)
[2018-01-08] MEDS ORDERED: ONDANSETRON 4MG/2ML VIAL (J2405) As Ordered (18:36)
[2018-01-08] MEDS ORDERED: ANEXSIA, NORCO 7.5MG/325MG TABLET(HYDROCODONE/APAP) PO (19:00)
[2018-01-08] MEDS ORDERED: ONDANSETRON 4MG/2ML VIAL (J2405) IV (19:00)
[2018-01-08] MEDS ORDERED: fentaNYL 100 MCG/2 ML INJECTION (J3010) IV (19:00)
[2018-01-08] MEDS: NORCO, ANEXSIA 5/325MG TABLET (HYDROcodone/ACETAMINOPHEN) PO (19:14)
[2018-01-08] MEDS: ANEXSIA, NORCO 7.5MG/325MG TABLET(HYDROCODONE/APAP) PO (19:45)
== END 2018-01-08 20:28 | disposition home or self-care (01) ==
LOC: M SDC 12:55
DX: N20.0 Calculus of kidney (principal); I48.91 Unspecified atrial fibrillation; E11.9 Type 2 diabetes mellitus without complications; Z95.810 Presence of automatic (implantable) cardiac defibrillator; Z79.82 Long term (current) use of aspirin; Z79.899 Other long term (current) drug therapy; G47.30 Sleep apnea, unspecified; Z88.8 Allergy status to other drugs, medicaments and biological substances
CPT/HCPCS: 52356

== ENCOUNTER → 2018-03-16 | Outpatient (REF) | payer OTHER ==
[2018-03-16 14:18] LABS: FOLATE 9.4 NG/ML; IRON (FE) 87 UG/DL (65-175); PERCENT SATURATION 23.3 % (19.7-50.0); TOTAL IRON BINDING CAPACITY 374 UG/DL (250-450)
== END ==
LOC: M LAB REF 12:54
DX: D64.9 Anemia, unspecified (principal)

== ENCOUNTER 2018-04-05 10:07 | Outpatient (RCR) | payer OTHER | END 2018-04-09 | LOC: M PT 10:07 | DX: Z47.89 Encounter for other orthopedic aftercare (principal); M25.569 Pain in unspecified knee; M25.561 Pain in right knee | CPT/HCPCS: 97110 ==

== ENCOUNTER 2018-05-07 09:09 | Outpatient (RCR) | payer OTHER ==
[~2018-05-07 09:09] MED LIST changes: -AMLO5TAB2 PO; +AMLO5TAB4 PO; +ATOR1TAB21 PO; +ENTR1TAB7 PO; +FURO20TA2 PO; +SPIR-10 PO; -SPIR25TA2 PO
== END 2018-05-10 ==
LOC: M PT 09:09
PROVIDERS: ATTEND Physician Assistant
DX: Z96.659 Presence of unspecified artificial knee joint (principal)

== ENCOUNTER → 2018-07-21 | Outpatient (REF) | payer OTHER ==
[~2018-07-21] MED LIST changes: -AMLO5TAB4 PO; +AMLO5TAB6 PO
[2018-07-23 08:10] LABS: LDL DIRECT 78 mg/dL (0-99)
== END ==
LOC: M LAB REF 12:18
PROVIDERS: ATTEND Family Medicine
DX: E78.2 Mixed hyperlipidemia (principal); N20.0 Calculus of kidney; N18.3 Chronic kidney disease, stage 3 (moderate)

== ENCOUNTER → 2019-11-25 | Outpatient (REF) | payer MEDICARE, MEDICAID ==
[~2019-11-25] MED LIST changes: -/TAMS4CA OR; +AMLO1TAB24 PO; -AMLO5TAB6 PO; -ASPI81TA85 PO; +ASPI81TA86 PO; +FLOM0.4C39 OR; +HYDR-2541 PO; -VALS1TAB46 PO; +VALS1TAB66 PO
[2019-11-27 08:08] LABS: LDL DIRECT 71 mg/dL (0-99)
== END ==
LOC: M LAB REF 16:11
PROVIDERS: ATTEND Family Medicine
DX: E78.2 Mixed hyperlipidemia (principal)

== ENCOUNTER → 2019-12-31 | Outpatient (CLI) | payer MEDICARE, MEDICAID | LOC: M LABSMTC 08:54 | PROVIDERS: ATTEND Anesthesiology | DX: Z01.812 Encounter for preprocedural laboratory examination (principal); Z20.828 Contact with and (suspected) exposure to other viral communicable diseases ==

== ENCOUNTER 2020-01-05 10:54 | Day surgery (SDC) | payer MEDICAID, MEDICARE ==
[~2020-01-05] VITALS: Ht 160 cm; Wt 104.8 kg
[~2020-01-05 10:54] MED LIST changes: +NS 1,000 ML IV ONE
[2020-01-05] MEDS ORDERED: propofoL 200 MG/20 ML VIAL As Ordered ONE (12:32)
[2020-01-05 12:56] VITALS: BP 151/90
--- NOTE | 2020-01-18 11:36 | ROOR ---
Patient Name: Zhou Grubbs Procedure Date: 01/05/2020 10:28 AM Date of : 1970 Age: 49 Room: [facility] Gender: Male Note Status: Finalized Procedure: Colonoscopy Indications: Screening for colorectal malignant neoplasm Providers: Magnus Garvey Jr, MD Referring MD: Kwadwo Daugherty MD Requesting Provider: Medicines: Propofol per Anesthesia Complications: No immediate complications. Procedure: Pre-Anesthesia Assessment: - Prior to the procedure, a History and Physical was performed, and patient medications and allergies were reviewed. The patient is competent. The risks and benefits of the procedure and the sedation options and risks were discussed with the patient. All questions were answered and informed consent was obtained. Patient identification and proposed procedure were verified by the physician and the nurse in the pre-procedure area and in the procedure room. Mental Status Examination: alert and oriented. Airway Examination: normal oropharyngeal airway and neck mobility. Respiratory Examination: clear to auscultation. CV Examination: normal. ASA Grade Assessment: II - A patient with mild systemic disease. After reviewing the risks and benefits, the patient was deemed in satisfactory condition to undergo the procedure. The anesthesia plan was to use moderate sedation / analgesia (conscious sedation). Immediately prior to administration of medications, the patient was re-assessed for adequacy to receive sedatives. The heart rate, respiratory rate, oxygen saturations, blood pressure, adequacy of pulmonary ventilation, and response to care were monitored throughout the procedure. The physical status of the patient was re-assessed after the procedure. The Colonoscope was introduced through the anus and advanced to the cecum, identified by appendiceal orifice and ileocecal valve. The colonoscopy was performed without difficulty. The patient tolerated the procedure well. The quality of the bowel preparation was adequate. Findings: The rectum, recto-sigmoid colon, sigmoid colon, descending colon, transverse colon, ascending colon, cecum, appendiceal orifice and ileocecal valve appeared normal. Impression: - The rectum, recto-sigmoid colon, sigmoid colon, descending colon, transverse colon, ascending colon, cecum, appendiceal orifice and ileocecal valve are normal. - No specimens collected. Recommendation: - Discharge patient to home (ambulatory). - Repeat colonoscopy in 10 years for screening purposes. Magnus Garvey MD Magnus Garvey Jr, MD 01/05/2020 12:16:22 PM Electronically signed by Magnus Garvey Jr, MD Number of Addenda: 0 Note Initiated On: 01/05/2020 10:28 AM Estimated Blood Loss: Estimated blood loss: none.
== END 2020-01-05 12:57 | disposition home or self-care (01) ==
LOC: M OPP 10:54
PROVIDERS: ATTEND Surgery
DX: Z12.11 Encounter for screening for malignant neoplasm of colon (principal); I48.91 Unspecified atrial fibrillation; E78.00 Pure hypercholesterolemia, unspecified; E11.9 Type 2 diabetes mellitus without complications; G47.30 Sleep apnea, unspecified; Z79.82 Long term (current) use of aspirin; Z79.899 Other long term (current) drug therapy; Z79.84 Long term (current) use of oral hypoglycemic drugs; Z87.442 Personal history of urinary calculi

== ENCOUNTER → 2020-05-01 | Outpatient (REF) | payer MEDICARE, MEDICAID ==
[~2020-05-01] MED LIST changes: -NS 1,000 ML IV ONE
[2020-05-02 19:07] LABS: LDL DIRECT 73 mg/dL (0-99)
== END ==
LOC: M LAB REF 12:29
PROVIDERS: ATTEND Family Medicine
DX: E78.2 Mixed hyperlipidemia (principal)

== ENCOUNTER → 2020-05-16 | Outpatient (CLI) | payer MEDICAID, MEDICARE ==
--- NOTE | 2020-05-16 12:25 | REP ---
INDICATION: dysphagia. COMPARISON: None. TECHNIQUE: The procedure was performed by CIELO Rust, under the direct supervision of Dr. Lucia. The procedure was performed with Naheed Rendon from speech pathology present. 5 ml aliquots of thin, pudding, mixed fruit, soft food, and hard food consistency barium was administered. FINDINGS: Penetration was visualized with thin consistency barium. The detailed report of this examination will be provided by speech pathology. IMPRESSION: Penetration was visualized with thin consistency barium, a detailed report will be provided by speech pathology. 1.3 minutes of fluoroscopy time was utilized for this procedure. Some fluoroscopic images are performed with last image hold technology. These images require no additional radiation <Electronically signed by Cristina Art > 05/16/20 1149 <Electronically signed by Ritchie Lucia > 05/16/20 1221
== END ==
LOC: M ST 10:15
PROVIDERS: ATTEND Family Medicine
DX: R13.10 Dysphagia, unspecified (principal)

== ENCOUNTER 2020-05-29 09:50 | Outpatient (RCR) | payer MEDICARE | END 2020-06-10 | LOC: M ST 09:50 | PROVIDERS: ATTEND Family Medicine | DX: R13.10 Dysphagia, unspecified (principal) ==

== ENCOUNTER → 2020-09-19 | Outpatient (CLI) | payer MEDICARE ==
[~2020-09-19] MED LIST changes: +E-Z-GAS II EFFERVESCENT PACKET (SODIUM BICARB./CITRIC ACID/SIMETHICONE) As Ordered ONE; +E-Z-HD 98% w/w 340GM SUSP BTL As Ordered ONE; +E-Z-PAQUE 96% w/w SUSP 176GM BTL As Ordered ONE; +HYDR-3490 PO; -HYDR25TAB PO
--- NOTE | 2020-09-19 20:23 | REP ---
INDICATION: DYSPHAGIA. COMPARISON: None. TECHNIQUE: This procedure was performed under the direct supervision of Dr. Lucia. Images were reviewed with Dr. Lucia. Liquid barium and gas producing granules were given in the erect position as well as liquid barium in the prone oblique positions in order to perform a double contrast esophagram examination. A combination of fluoroscopy, spot films and last image hold technology was utilized. 0.6 minutes of fluoro time was utilized for this procedure. FINDINGS: A single view PA chest x-ray is submitted as a learning designer film. There is no change compared to a previous chest x-ray performed on 12/22/2017. The oral and pharyngeal stages of deglutition are unremarkable. During esophageal transport there are mild tertiary waves demonstrated. There is no esophagitis, stricture, mucosal ring, or hiatal hernia.Gastroesophageal reflux is not demonstrated on this examination. IMPRESSION: There are mild tertiary waves demonstrated. Otherwise, unremarkable double-contrast esophagram examination pre <Electronically signed by Renan Zhang > 09/19/20 1510 <Electronically signed by Ritchie Lucia > 09/19/20 2019
== END ==
LOC: M RAD 08:00
PROVIDERS: ATTEND Physician Assistant Medical
DX: R13.10 Dysphagia, unspecified (principal)

== ENCOUNTER → 2020-10-19 | Outpatient (REF) | payer MEDICARE ==
[~2020-10-19] MED LIST changes: -E-Z-GAS II EFFERVESCENT PACKET (SODIUM BICARB./CITRIC ACID/SIMETHICONE) As Ordered ONE; -E-Z-HD 98% w/w 340GM SUSP BTL As Ordered ONE; -E-Z-PAQUE 96% w/w SUSP 176GM BTL As Ordered ONE
[2020-10-19 16:49] LABS: PERCENT SATURATION 21.4 % (19.7-50.0)
[2020-10-19 16:56] LABS: FOLATE 8.7 NG/ML
== END ==
LOC: M LAB REF 16:07
PROVIDERS: ATTEND Family Medicine
DX: D64.9 Anemia, unspecified (principal)

== ENCOUNTER 2020-10-29 11:03 | Emergency (ER) | payer MEDICARE ==
[~2020-10-29] VITALS: Ht 157.5 cm; Wt 105.0 kg
[2020-10-29] MEDS ORDERED: NS 1,000 ML IV ONE ×2 (12:30)
[2020-10-29] MEDS ORDERED: ONDANSETRON 4MG/2ML VIAL IV ONE (12:30)
[2020-10-29 13:58] LABS: APPEARANCE, URINE CLEAR (CLEAR); BACTERIA, URINE AUTO NEGATIVE (NEGATIVE); BILIRUBIN, URINE AUTO NEGATIVE (NEGATIVE); BLOOD, URINE BLOOD 1+ (NEGATIVE); COLOR, URINE YELLOW (YELLOW); GLUCOSE, URINE (UA) AUTO NEGATIVE (NEGATIVE); KETONE, URINE AUTO NEGATIVE (NEGATIVE); LEUKOCYTE ESTERASE, URINE AUTO NEGATIVE (NEGATIVE); MUCUS, URINE SMALL (NEGATIVE); NITRITE, URINE AUTO NEGATIVE (NEGATIVE); PROTEIN, URINE AUTO 1+ mg/dL (NEGATIVE); RBC, URINE AUTO 1 /HPF (0-3); SPECIFIC GRAVITY URINE AUTO 1.024 (1.002-1.035); SQUAMOUS EPITHELIAL CELL UR AU 0 /HPF (0-6); UROBILINOGEN, URINE AUTO 0.2 mg/dL (0.0-2.0); WBC, URINE AUTO 0 /HPF (0-3)
[2020-10-29 14:00] LABS: BASO % 0.3 % (0.0-1.0); EOS # 0.1 10^3/uL (0.0-0.5); EOS % 0.6 % (0.0-3.0); HEMATOCRIT 41.4 % (42.0-52.0); HEMOGLOBIN 14.1 g/dl (13.5-17.5); LYMPH # 0.9 10^3/uL (1.5-5.0); LYMPH % 10.1 % (24.0-44.0); MEAN CORPUSCULAR HEMOGLOBIN 31.4 pg (27.0-33.0); MEAN CORPUSCULAR HGB CONC 34.1 g/dl (32.0-36.5); MEAN CORPUSCULAR VOLUME 92.2 fl (80.0-96.0); MONO # 0.6 10^3/uL (0.0-0.8); MONO % 6.7 % (2.0-8.0); NEUTROPHILS # 7.3 10^3/uL (1.5-8.5); NEUTROPHILS % 81.5 % (36.0-66.0); PLATELET COUNT, AUTOMATED 154 10^3/uL (150-450); RED BLOOD COUNT 4.49 10^6/uL (4.30-6.10)
[2020-10-29] MEDS ORDERED: MORPHINE 4 MG/ML 1ML VIAL/SYRINGE (J2270) IV ONE (14:45)
[2020-10-29 14:46] LABS: ALBUMIN 4.1 GM/DL (3.2-5.2); BILIRUBIN,DIRECT 0.2 MG/DL (0.0-0.2); BILIRUBIN,TOTAL 0.7 MG/DL (0.2-1.0); TOTAL PROTEIN 8.4 GM/DL (6.4-8.2)
[2020-10-29] MEDS ORDERED: ISOVUE-370 76% 100ML VIAL As Ordered ONE (14:50)
[2020-10-29] MEDS ORDERED: ACETAMINOPHEN 500 MG TAB PO ONE (15:40)
--- NOTE | 2020-10-29 16:00 | REP ---
INDICATION: llq pain, diarrhea. COMPARISON: Comparison CT study is from October 09, 2017.. TECHNIQUE: Helical scanning was acquired and 3 mm axial images are re-formatted. Coronal and sagittal MPR images were generated and reviewed. The contrast enhancement dose is 100 mL of intravenous Isovue 370. FINDINGS: Preliminary digital hyperion developer radiograph is noncontributory. There is a unipolar pacemaker in the enlarged heart. On on the lung bases are clear on axial CT images. No pleural effusion is seen. The spleen is enlarged measuring up to 16.3 cm in diameter. There is fatty infiltration of the liver. The liver is not enlarged. No focal liver lesion is seen. No abnormality is noted in the gallbladder. Normal adrenal glands are observed bilaterally. There is a small accessory splenule. No pancreatic abnormality is seen. There is no evidence of hydronephrosis or intrarenal calculus. The left renal pelvic calculus seen on the October 09, 2017 study is no longer apparent. No renal mass lesion is seen. Vascular calcification is noted. The aorta is normal in caliber. There is mild mural thickening affecting the colon consistent with enterocolitis. This most pronounced in the sigmoid and rectosigmoid region. No obstructive lesion is seen. Normal appendix is noted. Urinary bladder and is and seminal vesicles are intact. Prostate shows some dystrophic calcifications. There is a small left inguinal hernia containing abdominal fat. No bony destructive lesion is seen. No evidence of free intraperitoneal air or abscess. IMPRESSION: Mural thickening affecting the left colon consistent with enterocolitis. Fatty infiltration of the liver. Splenomegaly. Small left inguinal hernia containing abdominal fat. <Electronically signed by Vinay Leavitt > 10/29/20 [id number]
[2020-10-29] MEDS ORDERED: HYDR-3713 PO (16:31)
[2020-10-29 16:42] VITALS: BP 119/64
--- NOTE | 2020-10-29 20:47 | ED PDOC ---
Post-Departure Follow-Up ct abd/p faxed to dr solorio for fu Lele Ng MD Oct 29, 2020 20:47
== END 2020-10-29 16:57 | disposition home or self-care (01) ==
LOC: M ED 11:03
DX: K40.90 Unilateral inguinal hernia, without obstruction or gangrene, not specified as recurrent (principal); A09 Infectious gastroenteritis and colitis, unspecified; R50.9 Fever, unspecified; Z88.8 Allergy status to other drugs, medicaments and biological substances
CPT/HCPCS: 36415; 74177; 80047; 80076; 81001; 83690; 85025; 87505; 99284; J2270; J2405; Q9967

== ENCOUNTER 2020-10-31 12:47 | Inpatient (IN) | payer MEDICARE ==
[~2020-10-31] VITALS: Ht 160 cm; Wt 104.3 kg
[~2020-10-31 12:47] MED LIST changes: +HYDR-3713 PO
[2020-10-31 14:25] LABS: BASO % 0.5 % (0.0-1.0); EOS # 0.2 10^3/uL (0.0-0.5); EOS % 2.8 % (0.0-3.0); HEMATOCRIT 35.6 % (42.0-52.0); HEMOGLOBIN 12.4 g/dl (13.5-17.5); LYMPH # 1.1 10^3/uL (1.5-5.0); LYMPH % 19.1 % (24.0-44.0); MEAN CORPUSCULAR HGB CONC 34.8 g/dl (32.0-36.5); MONO # 0.7 10^3/uL (0.0-0.8); MONO % 11.8 % (2.0-8.0); NEUTROPHILS # 3.7 10^3/uL (1.5-8.5); NEUTROPHILS % 64.9 % (36.0-66.0); PLATELET COUNT, AUTOMATED 170 10^3/uL (150-450); WHITE BLOOD COUNT 5.7 10^3/uL (4.0-10.0)
[2020-10-31 14:35] LABS: ALBUMIN 3.4 GM/DL (3.2-5.2); ALT/SGPT 35 U/L (12-78); BILIRUBIN,DIRECT 0.1 MG/DL (0.0-0.2); BILIRUBIN,TOTAL 0.5 MG/DL (0.2-1.0); BLOOD UREA NITROGEN 12 MG/DL (7-18); CALCIUM LEVEL 8.7 MG/DL (8.5-10.1); CARBON DIOXIDE LEVEL 26 MEQ/L (21-32); CHLORIDE LEVEL 102 MEQ/L (98-107); GLOMERULAR FILTRATION RATE > 60.0 (>56); GLUCOSE, FASTING 167 MG/DL (70-100); LIPASE 199 U/L (73-393); POTASSIUM SERUM 4.3 MEQ/L (3.5-5.1); SODIUM LEVEL 136 MEQ/L (136-145); TOTAL PROTEIN 7.3 GM/DL (6.4-8.2)
[2020-10-31] MEDS ORDERED: NS 1,000 ML IV ONE (16:35)
[2020-10-31] MEDS ORDERED: MORPHINE 4 MG/ML 1ML VIAL/SYRINGE (J2270) IV ONE ×3 (16:35→20:15)
[2020-10-31] MEDS ORDERED: ONDANSETRON 4MG/2ML VIAL IV ONE (16:35)
[2020-10-31] MEDS ORDERED: ISOVUE-370 76% 100ML VIAL As Ordered ONE (17:25)
--- NOTE | 2020-10-31 18:33 | REPVR ---
PROCEDURE INFORMATION: Exam: CT Abdomen And Pelvis With Contrast Exam date and time: 10/31/2020 5:39 PM Age: 50 years old Clinical indication: Abdominal pain; Localized; Left lower quadrant (llq); Additional info: Llq pain, fevers, e. Coli and salmonella TECHNIQUE: Imaging protocol: Computed tomography of the abdomen and pelvis with contrast. Radiation optimization: All CT scans at this facility use at least one of these dose optimization techniques: automated exposure control; mA and/or kV adjustment per patient size (includes targeted exams where dose is matched to clinical indication); or iterative reconstruction. Contrast material: ISOVUE 370; Contrast volume: 100 ml; Contrast route: INTRAVENOUS (IV); COMPARISON: 1. CT ABD/PEL W/IV CONTRAST ONLY 10/29/2020 3:[address] ABD PELVIS W/O CONTRAST 11/27/2015 1:18 PM FINDINGS: Liver: There is a diffuse decrease in hepatic parenchymal density, consistent with steatosis. Minimally lobular contour of the anterior aspect of the left lobe of the liver which is enlarged, a finding which may indicate early cirrhotic morphology in the appropriate clinical setting. No focal abnormality. Gallbladder and bile ducts: Sludge filled gallbladder. No calculi demonstrated. Pancreas: Normal. No ductal dilation. Spleen: There is gxar-za-sjgbaqqo splenomegaly with a maximum span of 16 centimeters. No focal abnormalities demonstrated. Adrenal glands: Normal. No mass. Kidneys and ureters: Normal. No hydronephrosis. Stomach and bowel: There is a diffusely boggy appearance of the distal left, sigmoid colon and rectum with mural stratification and an ahasutral countour. There are pericolonic inflammatory changes. Findings consistent with acute colitis/proctitis. No abscess demonstrated. Appendix: No evidence of appendicitis. Intraperitoneal space: Unremarkable. No free air. No significant fluid collection. Vasculature: The aortoiliac vessels demonstrate mild atherosclerotic calcification. Lymph nodes: Unremarkable. No enlarged lymph nodes. Urinary bladder: Unremarkable as visualized. Reproductive: The prostate gland demonstrates mild hyperplasia. Bones/joints: Shallow dextroscoliosis. Moderate central spinal stenosis L3-L4 and moderate to severe central spinal stenosis L4-L5. Bulging annulus L5-S1. Soft tissues: Small left inguinal hernia without incarceration. IMPRESSION: 1. There is a diffuse decrease in hepatic parenchymal density, consistent with steatosis. Minimally lobular contour of the anterior aspect of the left lobe of the liver which is enlarged, a finding which may indicate early cirrhotic morphology in the appropriate clinical setting. No focal abnormality. 2. Sludge filled gallbladder. No calculi demonstrated. 3. There is uayq-lz-enrextfx splenomegaly with a maximum span of 16 centimeters. No focal abnormalities demonstrated. 4. There is a diffusely boggy appearance of the distal left, sigmoid colon and rectum with mural stratification and an ahasutral countour. There are pericolonic inflammatory changes. Findings consistent with acute colitis/proctitis. No abscess demonstrated. 5. Mild prostatic hyperplasia. Electronically signed by: Boogie Lou On 10/31/2020 18:32:39 PM
[2020-10-31] MEDS ORDERED: CIPROFLOXACIN 500MG TABLET PO ONE (19:15)
[2020-10-31] MEDS ORDERED: ASPI-161 PO (19:36)
[2020-10-31] MEDS ORDERED: JANU100T PO (19:36)
[2020-10-31] MEDS ORDERED: VASC1CAP2 PO (19:36)
[2020-10-31] MEDS ORDERED: FLUTISP NARES (19:36)
[2020-10-31] MEDS ORDERED: PANT40TA29 PO (19:36)
[2020-10-31] MEDS ORDERED: CIPR500T39 PO (19:36)
[2020-10-31] MEDS ORDERED: CIPROFLOXACIN 400 MG in IV 1 EA IV ONE (19:50)
[2020-10-31] MEDS ORDERED: metroNIDAZOLE 500 MG in IV 1 EA IV ONE (19:50)
[2020-10-31] MEDS: DOCUSATE SODIUM 100MG CAPSULE PO SCH (21:00)
[2020-10-31 21:42] LABS: INFLUENZA A AMPLIFICATION NEGATIVE (NEGATIVE); INFLUENZA B AMPLIFICATION NEGATIVE (NEGATIVE)
[2020-10-31] MEDS ORDERED: MOM 30ML SUSPENSION UDC PO PRN (23:20)
[2020-10-31] MEDS ORDERED: ACETAMINOPHEN TAB 650MG DOSE (2X325MG) PO PRN (23:20)
[2020-10-31] MEDS ORDERED: MAALOX 30 ML SUSP *UDC PO PRN (23:20)
--- NOTE | 2020-10-31 23:25 | HPEPDOC ---
[facility] Medical History & Physical Date of Admission Oct 31, 2020 Date of Service: Oct 31, 2020 History and Physical CHIEF COMPLAINT: Diarrhea and abdominal pain HISTORY OF PRESENT ILLNESS: Mr. Grubbs is a 50-year-old male with a past medical history of HFrEF (follows with Dr. Li), CAD (reports no stents), CO, DM2, HTN, Nephrolithiasis, Osteoarthritis, presented to the ER with worsening lower abdominal pain and copious diarrhea for the past 4 days. Patient was seen in the ER on 10/19/20 for similar symptoms during which time CT abdomen showed colitis with subsequent stool culture growing Salmonella and non-shiga toxin producing Escherichia coli. Patient was discharged home with supportive and conservative management. He contacted his primary care provider on 10/30 was prescribed a course of ciprofloxacin. Due to reduced by mouth intake and worsening abdominal pain with diarrhea. Patient decided to seek help in the emergency department. Patient denies chest pain, seizures, but palpitations, but does endorse small amount of blood after several bouts of diarrhea. On arrival, he was afebrile, pulse 88, respiratory 16, blood pressure 130/82, saturating 90% on room air. Count 5.7. Hemoglobin 12.4. Creatinine 1.2, BUN 12, sodium 136, potassium 4.3. Patient was given a dose of ciprofloxacin as well as metronidazole in the ER. Patient will be admitted to hospital service for management of enteritis/colitis secondary to Salmonella and non-Shiga toxin forming Escherichia coli. PAST MEDICAL HISTORY: HFrEF hx of vtach, s/p AICD Hypertension. Obstructive sleep apnea. Obesity. Left ventricular hypertrophy with severe systolic/diastolic dysfunction. Pulmonary hypertension. hx of Pulmonary Embolism DM2 PAST SURGICAL HISTORY: Knee replacement SOCIAL HISTORY: Non smoker Rare etoh use Denies illicit drug use FULL CODE FAMILY HISTORY: Mother and father with CAD, CO, diabetes, hypertension, amputations. Mother , age 56. Father , age 67. ALLERGIES: Please see below. REVIEW OF SYSTEMS: 10 point ROS was conducted, relevant findings are noted in HPI HOME MEDICATIONS: Please see below. PHYSICAL EXAMINATION: VITAL SIGNS: please see below General: NAD, comfortable HEENT: PERRLA, EOMI, sclerae clear Neck: supple, normal ROM, no JVD Respiratory: lungs CTAB, no wheeze, no rales, no crackles CVS: RRR, normal S1, S2, no murmurs Abdo: exquisitely tender lower abdomen to palpation, BS+, obese abdomen Extremities: no edema, pulses 2+ MSK: no joint deformities, normal ROM Neuro: no focal neuro deficits, moving all 4 extremities, CN2-12 intact. Strength 5/5 in all 4 extremities. No nystagmus. Psych: calm, cooperative, AAO x 3 LABORATORY DATA: See below. IMAGING: CT abdo pelvis with IV contrast (10/31/20): 1. There is a diffuse decrease in hepatic parenchymal density, consistent with steatosis. Minimally lobular contour of the anterior aspect of the left lobe of the liver which is enlarged, a finding which may indicate early cirrhotic morphology in the appropriate clinical setting. No focal abnormality. 2. Sludge filled gallbladder. No calculi demonstrated. 3. There is xvtw-jr-geczjsww splenomegaly with a maximum span of 16 centimeters. No focal abnormalities demonstrated. 4. There is a diffusely boggy appearance of the distal left, sigmoid colon and rectum with mural stratification and an ahasutral countour. There are pericolonic inflammatory changes. Findings consistent with acute colitis/proctitis. No abscess demonstrated. 5. Mild prostatic hyperplasia. MICROBIOLOGY: Please see below. ASSESSMENT: Mr. Grubbs is a 50-year-old male with a past medical history of HFrEF (follows with Dr. Li), CAD (reports no stents), CO, DM2, HTN, Nephrolithiasis, Osteoarthritis, presented to the ER with worsening lower abdominal pain and copious diarrhea for the past 4 days. Stool testing positive for salmonella and non shiga toxin ecoli. Failed conservative therapy. Admitted for IV fluid repletion and IV antibiotics. PLAN: Colitis/proctitis 2/2 salmonella and non shiga toxin forming e coli - failed conservative management - continues to have copious diarrhea and abdominal pain - was given rx for cipro by PCP on 10/30/20 - continue with cipro 400 mg IV q12h - add flagyl 500 mg IV q8h - clear liquid diet, advance as tolerated - IVF 125 cc/hr - will hold diuretics temporarily, but resume in AM given hx of HFrEF - pain control with oxycodone, morphine for breakthrough HFrEF - last echo 03/2017, showing LVEF 30%, G1DD, multiple regional WMA. - follows with Dr. Li - resume home entresto, furosemide and spironolactone - c/w carvedilol 50mg PO bid - monitor BMP Fatty liver on CT with evidence suggestive of liver cirhosis - suspect ALVA - takes metformin for DM2 - dietary counseling provided CAD - c/w ASA - c/w lipitor 20 mg GERD - c/w pantroprazole DVT ppx: lovenox Dispo: pending clinical improvement. Vital Signs Vital Signs Date Time Temp Pulse Resp B/P (MAP) Pulse Ox O2 Delivery O2 Flow Rate FiO2 10/31/20 22:16 98.4 88 16 130/82 (98) 99 Room Air Laboratory Data Labs 24H Laboratory Tests 2 10/31/20 13:39: Immature Granulocyte % (Auto) 0.9, Neutrophils (%) (Auto) 64.9, Lymphocytes (%) (Auto) 19.1L, Monocytes (%) (Auto) 11.8H, Eosinophils (%) (Auto) 2.8, Basophils (%) (Auto) 0.5, Neutrophils # (Auto) 3.7, Lymphocytes # (Auto) 1.1L, Monocytes # (Auto) 0.7, Eosinophils # (Auto) 0.2, Basophils # (Auto) 0.0, Nucleated Red Blood Cells % (auto) 0.0, Anion Gap 8, Glomerular Filtration Rate > 60.0, Calcium Level 8.7, Total Bilirubin 0.5, Direct Bilirubin 0.1, Aspartate Amino Transf (AST/SGOT) 20, Alanine Aminotransferase (ALT/SGPT) 35, Alkaline Phosphatase 43L, Total Protein 7.3, Albumin 3.4, Albumin/Globulin Ratio 0.9, Lipase 199 10/31/20 16:37: Urine Color YELLOW, Urine Appearance CLEAR, Urine pH 5.0, Urine Specific P[place] 1.011, Urine Protein NEGATIVE, Urine Glucose (UA) NEGATIVE, Urine Ketones NEGATIVE, Urine Blood 1+H, Urine Nitrite NEGATIVE, Urine Bilirubin NEGATIVE, Urine Urobilinogen 0.2, Urine Leukocyte Esterase NEGATIVE, Urine WBC (Auto) 1, Urine RBC (Auto) 2, Urine Hyaline Casts (Auto) 0, Urine Bacteria (Auto) NEGATIVE, Urine Squamous Epithelial Cells 0, Urine Sperm (Auto) 10/31/20 16:51: POC Lactate (Misc Panel) 1.05 10/31/20 19:47: Coronavirus (COVID-19)(PCR) NEGATIVE, Influenza Type A (RT-PCR) NEGATIVE, Influenza Type B (RT-PCR) NEGATIVE CBC/BMP Laboratory Tests 10/31/20 13:39 Home Medications Scheduled Aspirin (Aspirin EC) 81 Mg Tablet.dr, 81 MG PO DAILY Atorvastatin Calcium (Atorvastatin Calcium) 20 Mg Tab, 20 MG PO DAILY Carvedilol (Carvedilol) 25 Mg Tab, 50 MG PO BID Ciprofloxacin HCl (Ciprofloxacin HCl) 500 Mg Tablet, 500 MG PO BID STARTED 10/30/20 FOR 7 DAYS Fluticasone Propionate (Fluticasone Propionate) 16 Gm Ronan.susp, 2 SPRAYS NARES DAILY Furosemide (Furosemide) 20 Mg Tab, 20 MG PO DAILY Icosapent Ethyl (Vascepa) 1 Gm Capsule, 2 GM PO BID Metformin HCl (Glucophage) 1,000 Mg Tab, 1,000 MG PO BID Pantoprazole Sodium (Pantoprazole Sodium) 40 Mg Tablet.dr, 40 MG PO DAILY Sacubitril/Valsartan (Entresto 49 mg-51 mg Tablet) 1 Tab Tab, 1 TAB PO BID Sitagliptin Phosphate (Januvia) 100 Mg Tablet, 100 MG PO DAILY Spironolactone (Spironolactone) 25 Mg Tab, 25 MG PO QHS Allergies Coded Allergies: prochlorperazine (Verified Allergy, Severe, ANGIOEDEMA, 01/04/20) A-FIB/CHADSVASC A-FIB History Current/History of A-Fib/PAF?: No MARIAH ROSAS MD Oct 31, 2020 23:25
[2020-10-31] MEDS ORDERED: MORPHINE 2 MG/ML 1ML VIAL (J2270) IV PRN (23:50)
[2020-11-01 00:53] LABS: HEMATOCRIT 35.3 % (42.0-52.0); HEMOGLOBIN 12.3 g/dl (13.5-17.5); MEAN CORPUSCULAR HEMOGLOBIN 30.9 pg (27.0-33.0); MEAN CORPUSCULAR HGB CONC 34.8 g/dl (32.0-36.5); MEAN CORPUSCULAR VOLUME 88.7 fl (80.0-96.0); PLATELET COUNT, AUTOMATED 160 10^3/uL (150-450); RED BLOOD COUNT 3.98 10^6/uL (4.30-6.10); WHITE BLOOD COUNT 6.4 10^3/uL (4.0-10.0)
[2020-11-01] MEDS: PERCOCET 5MG/325MG TAB PO PRN ×5 (01:08→19:08)
[2020-11-01] MEDS: CARVedilol 12.5 MG TAB PO SCH ×3 (01:08→20:10)
[2020-11-01] MEDS: FLUTICASONE PROP 0.05% NASAL SPRAY 16 GM (FLONASE) NARES SCH ×3 (02:05→22:42)
[2020-11-01] MEDS: SPIRONOLACTONE 25 MG TAB PO SCH ×2 (02:05→20:08)
[2020-11-01] MEDS: ENTRESTO 49-51MG TABLET (SACUBITRIL/VALSARTAN) PO SCH ×3 (02:05→20:10)
[2020-11-01] MEDS: NS 1,000 ML IV SCH ×2 (02:06→09:53)
[2020-11-01 02:37] VITALS: BP 130/88
[2020-11-01] MEDS: RAMELTEON 8 MG TAB (ROZEREM) PO PRN (03:15)
[2020-11-01] MEDS: metroNIDAZOLE 500 MG in IV 1 EA IV SCH ×3 (05:44→22:39)
[2020-11-01 06:00] VITALS: BP 129/87
[2020-11-01 06:53] LABS: HEMATOCRIT 33.6 % (42.0-52.0); HEMOGLOBIN 11.8 g/dl (13.5-17.5); MEAN CORPUSCULAR HEMOGLOBIN 31.2 pg (27.0-33.0); MEAN CORPUSCULAR HGB CONC 35.1 g/dl (32.0-36.5); MEAN CORPUSCULAR VOLUME 88.9 fl (80.0-96.0); PLATELET COUNT, AUTOMATED 166 10^3/uL (150-450); RED BLOOD COUNT 3.78 10^6/uL (4.30-6.10); WHITE BLOOD COUNT 5.9 10^3/uL (4.0-10.0)
[2020-11-01 07:21] LABS: ALBUMIN 3.2 GM/DL (3.2-5.2); ALT/SGPT 33 U/L (12-78); BILIRUBIN,TOTAL 0.5 MG/DL (0.2-1.0); BLOOD UREA NITROGEN 11 MG/DL (7-18); CALCIUM LEVEL 8.5 MG/DL (8.5-10.1); CARBON DIOXIDE LEVEL 24 MEQ/L (21-32); CHLORIDE LEVEL 105 MEQ/L (98-107); CREATININE FOR GFR 1.16 MG/DL (0.70-1.30); GLOMERULAR FILTRATION RATE > 60.0 (>56); GLUCOSE, FASTING 143 MG/DL (70-100); MAGNESIUM LEVEL 1.4 MG/DL (1.8-2.4); POTASSIUM SERUM 4.1 MEQ/L (3.5-5.1); SODIUM LEVEL 136 MEQ/L (136-145); TOTAL PROTEIN 7.3 GM/DL (6.4-8.2)
[2020-11-01] MEDS ORDERED: FLUTICASONE PROP 0.05% NASAL SPRAY 16 GM (FLONASE) NARES SCH (09:00)
[2020-11-01] MEDS: DOCUSATE SODIUM 100MG CAPSULE PO SCH ×2 (09:00→20:16)
[2020-11-01] MEDS: CIPROFLOXACIN 400 MG in IV 1 EA IV SCH ×2 (09:53→20:08)
[2020-11-01] MEDS: ENOXAPARIN 40MG/0.4ML SYRINGE (J1650 PER 10MG) SC SCH (09:53)
[2020-11-01] MEDS: FUROSEMIDE 20 MG TAB PO SCH (09:55)
[2020-11-01] MEDS: PANTOPRAZOLE 40MG TAB (PROTONIX) PO SCH (09:55)
[2020-11-01] MEDS: ASPIRIN 81MG ENTERIC TABLET PO SCH (09:55)
[2020-11-01] MEDS: ATORVASTATIN 20 MG TAB PO SCH (09:55)
[2020-11-01] MEDS ORDERED: GLUCAGON INJ 1MG VIAL SC PRN (10:10)
[2020-11-01] MEDS ORDERED: DEXTROSE 50% 50 ML SYRINGE IV PRN (10:10)
[2020-11-01] MEDS ORDERED: GLUCOSE 4GM CHEW TABLET PO PRN (10:10)
--- NOTE | 2020-11-01 10:29 | IPN ---
PROGRESS NOTE DATE: 11/01/2020 PRIMARY CARE PROVIDER: Dr. Kwame Gonzalez SUBJECTIVE: He is a 50-year-old admitted with salmonella enteropathogenic E. coli enteritis, conservative treatment was attempted but he had persisting diarrhea. Oral antibiotic therapy was prescribed, he failed to respond to this. He is being admitted for intravenous Cipro and Flagyl. He feels better since this has been started, abdominal pain has improved and diarrhea is less severe. OBJECTIVE: VITAL SIGNS: Afebrile. Vital signs are stable. LUNGS: Clear. HEART: Regular rhythm. ABDOMEN: Soft, diffusely mildly tender. No CVA tenderness. EXTREMITIES: No peripheral edema. Normal strength in the arms and legs. LABORATORY DATA: White count 5.9, hemoglobin is 11.8, platelets 166,000, sodium 136, potassium 4, BUN 11, creatinine 1.1, glucose 143. IMPRESSION: 1. Salmonella and enteropathogenic E. coli enteritis. Continue Cipro and Flagyl. He has some gentle IV fluids going. He seems to be hydrating himself satisfactorily so we are going to stop his IV fluids. 2. History of congestive heart failure with reduced ejection fraction, stop his IV fluids. He is currently on furosemide and spironolactone which we will continue. Watch his renal function particularly on the Entresto. He is receiving this twice daily. Daily renal labs have been ordered. 3. History of Type 2 diabetes, at home he is on Januvia and Metformin, not currently on any coverage. Will start fingersticks a.c. and h.s. with coverage. 4. History of V-tach status post AICD. I have ordered daily magnesium levels and pay close attention to potassium levels. 5. History of pulmonary embolism. DVT prophylaxis with Lovenox has been ordered. 6. History of coronary artery disease with hyperlipidemia. Continue his aspirin and atorvastatin therapy.
[2020-11-01] MEDS: HumaLOG INSULIN (NovoLOG) PER UNIT SC SCH ×2 (13:23→18:22)
[2020-11-01 14:00] VITALS: BP 131/76
[2020-11-01] MEDS ORDERED: HumaLOG INSULIN (NovoLOG) PER UNIT SC SCH (21:00)
[2020-11-01 21:53] VITALS: BP 107/67
[2020-11-02] MEDS: RAMELTEON 8 MG TAB (ROZEREM) PO PRN (00:05)
[2020-11-02] MEDS: PERCOCET 5MG/325MG TAB PO PRN (00:06)
[2020-11-02] MEDS: metroNIDAZOLE 500 MG in IV 1 EA IV SCH (05:58)
[2020-11-02 06:00] VITALS: BP 106/65
[2020-11-02 06:30] LABS: HEMATOCRIT 32.7 % (42.0-52.0); HEMOGLOBIN 11.5 g/dl (13.5-17.5); MEAN CORPUSCULAR HEMOGLOBIN 31.4 pg (27.0-33.0); MEAN CORPUSCULAR HGB CONC 35.2 g/dl (32.0-36.5); MEAN CORPUSCULAR VOLUME 89.3 fl (80.0-96.0); PLATELET COUNT, AUTOMATED 154 10^3/uL (150-450); RED BLOOD COUNT 3.66 10^6/uL (4.30-6.10); WHITE BLOOD COUNT 4.9 10^3/uL (4.0-10.0)
[2020-11-02 07:03] LABS: ALBUMIN 3.1 GM/DL (3.2-5.2); ALT/SGPT 39 U/L (12-78); BILIRUBIN,TOTAL 0.4 MG/DL (0.2-1.0); BLOOD UREA NITROGEN 8 MG/DL (7-18); CALCIUM LEVEL 8.7 MG/DL (8.5-10.1); CARBON DIOXIDE LEVEL 27 MEQ/L (21-32); CHLORIDE LEVEL 106 MEQ/L (98-107); CREATININE FOR GFR 1.17 MG/DL (0.70-1.30); GLOMERULAR FILTRATION RATE > 60.0 (>56); GLUCOSE, FASTING 131 MG/DL (70-100); MAGNESIUM LEVEL 1.6 MG/DL (1.8-2.4); POTASSIUM SERUM 3.8 MEQ/L (3.5-5.1); SODIUM LEVEL 139 MEQ/L (136-145)
[2020-11-02] MEDS ORDERED: FLAG500T PO (07:46)
[2020-11-02] MEDS: CIPROFLOXACIN 400 MG in IV 1 EA IV SCH (08:12)
[2020-11-02] MEDS: ENOXAPARIN 40MG/0.4ML SYRINGE (J1650 PER 10MG) SC SCH (08:13)
[2020-11-02] MEDS: FUROSEMIDE 20 MG TAB PO SCH (08:13)
[2020-11-02] MEDS: HumaLOG INSULIN (NovoLOG) PER UNIT SC SCH (08:13)
[2020-11-02] MEDS: PANTOPRAZOLE 40MG TAB (PROTONIX) PO SCH (08:13)
[2020-11-02] MEDS: ATORVASTATIN 20 MG TAB PO SCH (08:13)
[2020-11-02] MEDS: ENTRESTO 49-51MG TABLET (SACUBITRIL/VALSARTAN) PO SCH (08:14)
[2020-11-02] MEDS: ASPIRIN 81MG ENTERIC TABLET PO SCH (08:14)
[2020-11-02 08:17] VITALS: BP 116/77
[2020-11-02] MEDS: CARVedilol 12.5 MG TAB PO SCH (08:17)
[2020-11-02] MEDS: FLUTICASONE PROP 0.05% NASAL SPRAY 16 GM (FLONASE) NARES SCH (08:17)
[2020-11-02] MEDS: DOCUSATE SODIUM 100MG CAPSULE PO SCH (08:17)
--- NOTE | 2020-11-02 09:50 | DSES ---
DISCHARGE SUMMARY DATE OF ADMISSION: 10/31/2020 DATE OF DISCHARGE: 11/02/2020 PRINCIPAL DIAGNOSIS: Enteritis secondary to salmonella and enteropathogenic E. coli unresponsive to outpatient therapy. HISTORY: Zhou Grubbs was admitted for enteritis from bacterial cause. Details per history and physical from admission. HOSPITAL COURSE: He was admitted to a medical bed. His bloody diarrhea improved soon after starting intravenous antibiotics. It resolved by the day of discharge. On the day discharge, he is eager to go home. His daughter turns 21 today, and he wants to be there for her birthday. He has had no rectal bleeding, and his diarrhea is essentially resolved. PHYSICAL EXAMINATION: GENERAL: On exam today, he is resting comfortably in no distress. LUNGS: Clear. HEART: Regular rhythm. ABDOMEN: Soft, nontender, nondistended. No masses. HEENT: Mucous membranes moist. LABORATORY DATA: White count 4.9, hemoglobin 11.5, platelets 154. Sodium 139, potassium 3.8, BUN 8, creatinine 1.1. DISPOSITION: He was discharged home in improved and stable condition. He will follow up with his primary care provider in a week. Activity as tolerated. Diet as tolerated. MEDICATIONS: New medicines are: 1. Flagyl 500 mg b.i.d. for seven days. 2. Continue Cipro 500 mg b.i.d. for five more days. Otherwise stay on his other usual meds which are: 1. Aspirin 81 mg daily. 2. Atorvastatin 20 mg daily. 3. Carvedilol 50 mg b.i.d. 4. Fluticasone nasal spray as needed. 5. Furosemide 20 mg daily. 6. Vascepa 2 grams b.i.d. 7. Metformin 1,000 mg b.i.d. 8. Protonix 40 mg daily. 9. Entresto 49-51 one tablet b.i.d. 10. Januvia 100 mg daily. 11. Spironolactone 25 mg at bedtime. PENDING LABORATORY DATA: At the time of this dictation, there are no pending labs.
== END 2020-11-02 11:10 | disposition home or self-care (01) | DRG 372 ==
LOC: M ED 12:47 → M ED INP 22:28 → ENRESERV 11-01 00:38 → M MS5PR 11-01 01:25
PROVIDERS: ADMIT Family Medicine; ATTEND Family Medicine
DX: A02.0 Salmonella enteritis (principal); I50.22 Chronic systolic (congestive) heart failure; I11.0 Hypertensive heart disease with heart failure; G47.33 Obstructive sleep apnea (adult) (pediatric); E66.9 Obesity, unspecified; I27.20 Pulmonary hypertension, unspecified; Z86.711 Personal history of pulmonary embolism; E11.9 Type 2 diabetes mellitus without complications; Z96.659 Presence of unspecified artificial knee joint; A04.4 Other intestinal Escherichia coli infections; I25.10 Atherosclerotic heart disease of native coronary artery without angina pectoris; K21.9 Gastro-esophageal reflux disease without esophagitis; K76.0 Fatty (change of) liver, not elsewhere classified; Z20.822 Contact with and (suspected) exposure to COVID-19; Z79.82 Long term (current) use of aspirin; Z79.899 Other long term (current) drug therapy; Z79.84 Long term (current) use of oral hypoglycemic drugs; Z88.8 Allergy status to other drugs, medicaments and biological substances; E78.5 Hyperlipidemia, unspecified

== ENCOUNTER → 2020-11-28 | Outpatient (CLI) | payer MEDICARE ==
[~2020-11-28] MED LIST changes: +ASPI-161 PO; +CIPR500T39 PO; +FLAG500T PO; +FLUTISP NARES; +JANU100T PO; +PANT40TA29 PO; +VASC1CAP2 PO
== END ==
LOC: M LABSMTC 11:12
PROVIDERS: ATTEND Anesthesiology
DX: Z01.812 Encounter for preprocedural laboratory examination (principal)

== ENCOUNTER 2020-12-03 08:00 | Day surgery (SDC) | payer MEDICARE ==
[~2020-12-03] VITALS: Ht 160 cm; Wt 101.5 kg
[2020-12-03] MEDS: NS 1,000 ML IV SCH ×2 (06:00→08:37)
[2020-12-03] MEDS ORDERED: propofoL 200 MG/20 ML VIAL As Ordered ONE ×2 (09:31→09:49)
[2020-12-03] MEDS ORDERED: fentaNYL 100 MCG/2 ML INJECTION (J3010) As Ordered ONE (09:31)
[2020-12-03] MEDS ORDERED: LIDOCAINE 2% 100MG/5ML SDV (FOR ANES.) As Ordered ONE (09:31)
--- NOTE | 2020-12-03 09:57 | ROOR ---
Patient Name: Zhou Grubbs Procedure Date: 12/03/2020 9:39 AM Date of : 1970 Age: 50 Room: [facility] Gender: Male Note Status: Finalized Procedure: Upper GI endoscopy Indications: Esophageal dysphagia, Heartburn Providers: Cipriano Cage MD Referring MD: Kwadwo Daugherty MD Requesting Provider: Medicines: Monitored Anesthesia Care Complications: No immediate complications. Procedure: Pre-Anesthesia Assessment: - The heart rate, respiratory rate, oxygen saturations, blood pressure, adequacy of pulmonary ventilation, and response to care were monitored throughout the procedure. The Endoscope was introduced through the mouth, and advanced to the second part of duodenum. The upper GI endoscopy was accomplished without difficulty. The patient tolerated the procedure well. Findings: Non-severe esophagitis was found at the gastroesophageal junction. Biopsies were taken with a cold forceps for histology. A single small nodule was found at the gastroesophageal junction, 39 cm from the incisors. Biopsies were taken with a cold forceps for histology. No endoscopic abnormality was evident in the esophagus to explain the patient's complaint of dysphagia. It was decided, however, to proceed with dilation of the lower third of the esophagus. A TTS dilator was passed through the scope. Dilation with an 18-19-20 mm balloon dilator was performed to 20 mm. The dilation site was examined and showed no change. The entire examined stomach was normal. The examined duodenum was normal. Impression: - Mild esophagitis with a small (5mm) inflammatory appearing nodule found in the esophagus. Biopsied. - No endoscopic esophageal abnormality to explain patient's dysphagia. Esophagus dilated. Dilated. - Normal stomach. - Normal examined duodenum. Recommendation: - Continue present medications. - Observe patient's clinical course. - Telephone endoscopist for pathology results in 2 weeks. Procedure Code(s): --- Professional --- 35817, Esophagogastroduodenoscopy, flexible, transoral; with transendoscopic balloon dilation of esophagus (less than 30 mm diameter) 68159, 59, Esophagogastroduodenoscopy, flexible, transoral; with biopsy, single or multiple Diagnosis Code(s): --- Professional --- R12, Heartburn R13.14, Dysphagia, pharyngoesophageal phase K22.8, Other specified diseases of esophagus K20.9, Esophagitis, unspecified CPT copyright 2019 [employer]. All rights reserved. The codes documented in this report are preliminary and upon assistant professor of archaeology review may be revised to meet current compliance requirements. Cipriano Cage MD Cipriano Cage MD 12/03/2020 9:56:53 AM Electronically signed by Cipriano Cage MD Number of Addenda: 0 Note Initiated On: 12/03/2020 9:39 AM Estimated Blood Loss: Estimated blood loss: none.
[2020-12-03 10:15] VITALS: BP 124/87
== END 2020-12-03 10:29 | disposition home or self-care (01) ==
LOC: M OPP 08:00
PROVIDERS: ATTEND Internal Medicine Gastroenterology
DX: K22.8 Other specified diseases of esophagus (principal); K20.90 Esophagitis, unspecified without bleeding; R13.14 Dysphagia, pharyngoesophageal phase; R12 Heartburn; Z79.82 Long term (current) use of aspirin; Z79.84 Long term (current) use of oral hypoglycemic drugs; Z79.899 Other long term (current) drug therapy; Z88.8 Allergy status to other drugs, medicaments and biological substances
CPT/HCPCS: 43239; 43249; 88305; J3010

== ENCOUNTER → 2021-01-25 | Outpatient (REF) | payer MEDICARE ==
[2021-01-25 14:25] LABS: MAGNESIUM LEVEL 1.7 MG/DL (1.8-2.4)
[2021-01-28 10:27] LABS: CREATININE FOR GFR 1.48 MG/DL (0.70-1.30); GLOMERULAR FILTRATION RATE 53.1 (>56)
== END ==
LOC: M LAB REF 13:15
PROVIDERS: ATTEND Internal Medicine Nephrology
DX: N18.32 Chronic kidney disease, stage 3b (principal); I50.22 Chronic systolic (congestive) heart failure; E11.22 Type 2 diabetes mellitus with diabetic chronic kidney disease

== ENCOUNTER → 2021-02-04 | Outpatient (CLI) | payer MEDICARE ==
--- NOTE | 2021-02-06 12:16 | REP ---
INDICATION: HX URNIARY CALCULI COMPARISON: 05/02/2019 TECHNIQUE: Real time louie scale ultrasound examination using curved array transducer. FINDINGS: Bilateral kidneys are normal in contour, size, echogenicity, and reniform shape. Right kidney measures 11.8 x 5.8 x 5.5 cm without hydronephrosis, nephrolithiasis, cystic or renal mass lesion. Left kidney measures 13.4 x 6.2 x 5.5 cm and includes 3.5 cm lateral cortical lobulation confirmed by recent CT dated 10/31/2020 which did not identified obvious solid mass. 1.8 cm peripelvic hypoechoic area on current ultrasound may reflect the mild suspected extrarenal pelvis. Bladder is unremarkable. IMPRESSION: 1. No obvious nephrolithiasis or hydronephrosis. 2. Mild left renal changes likely reflect benign chronic changes as confirmed by recent CT dated 10/31/2020 <Electronically signed by Uche Silva > 02/06/21 1212
== END ==
LOC: M RAD 10:42
PROVIDERS: ATTEND Internal Medicine Nephrology
DX: N28.89 Other specified disorders of kidney and ureter (principal); Z87.442 Personal history of urinary calculi

== ENCOUNTER → 2021-04-08 | Outpatient (CLI) | payer MEDICARE | LOC: M RAD 11:50 | PROVIDERS: ATTEND Internal Medicine | DX: L03.115 Cellulitis of right lower limb (principal); M77.31 Calcaneal spur, right foot ==

== ENCOUNTER → 2021-04-19 | Outpatient (REF) | payer MEDICARE | LOC: M LAB REF 12:49 | PROVIDERS: ATTEND Internal Medicine Nephrology | DX: E83.42 Hypomagnesemia (principal) ==

== ENCOUNTER → 2021-04-22 | Outpatient (REF) | payer MEDICARE | LOC: M LAB REF 16:36 | PROVIDERS: ATTEND Internal Medicine | DX: L03.031 Cellulitis of right toe (principal) ==

== ENCOUNTER → 2021-06-25 | Outpatient (REF) | payer MEDICARE ==
[2021-06-25 18:07] LABS: C REACTIVE PROTEIN QUANTITATIV 0.62 MG/DL (0.00-0.30); IRON (FE) 77 UG/DL (65-175); MAGNESIUM LEVEL 1.8 MG/DL (1.8-2.4); PHOSPHORUS LEVEL 3.3 MG/DL (2.5-4.9); RHEUMATOID FACTOR QUANT < 10.0 IU/ML (<15.0)
[2021-06-25 18:17] LABS: VITAMIN B12 LEVEL 360 PG/ML (247-911)
== END ==
LOC: M SFHCRHEU 15:45
PROVIDERS: ATTEND Internal Medicine
DX: M79.10 Myalgia, unspecified site (principal); M25.50 Pain in unspecified joint; Z79.899 Other long term (current) drug therapy

== ENCOUNTER → 2021-06-27 | Outpatient (CLI) | payer MEDICARE | LOC: M RAD 14:01 | PROVIDERS: ATTEND Internal Medicine | DX: M25.50 Pain in unspecified joint (principal); M77.30 Calcaneal spur, unspecified foot ==

== ENCOUNTER → 2021-08-08 | Outpatient (RCR) | payer MEDICARE | LOC: M PT 07-22 09:27 | PROVIDERS: ATTEND Internal Medicine | DX: M47.812 Spondylosis without myelopathy or radiculopathy, cervical region (principal) ==

== ENCOUNTER → 2021-10-06 | Outpatient (CLI) | payer MEDICARE ==
[2021-10-06 10:43] LABS: CALCIUM LEVEL 8.8 MG/DL (8.5-10.1); CREATININE FOR GFR 1.46 MG/DL (0.70-1.30); POTASSIUM SERUM 4.9 MEQ/L (3.5-5.1)
== END ==
LOC: M LAB 09:40
PROVIDERS: ATTEND Internal Medicine Endocrinology, Diabetes & Metabolism
DX: E11.65 Type 2 diabetes mellitus with hyperglycemia (principal)

== ENCOUNTER → 2021-10-15 | Outpatient (CLI) | payer MEDICARE ==
[2021-10-15 11:35] LABS: CALCIUM LEVEL 9.4 MG/DL (8.5-10.1); CREATININE FOR GFR 1.9 MG/DL (0.70-1.30); GLOMERULAR FILTRATION RATE 39.8 (>56); POTASSIUM SERUM 4.2 MEQ/L (3.5-5.1)
== END ==
LOC: M LAB 09:53
PROVIDERS: ATTEND Internal Medicine Endocrinology, Diabetes & Metabolism
DX: E11.65 Type 2 diabetes mellitus with hyperglycemia (principal)

== ENCOUNTER → 2021-10-24 | Outpatient (CLI) | payer MEDICARE ==
[2021-10-24 10:22] LABS: CALCIUM LEVEL 10.1 MG/DL (8.5-10.1); CREATININE FOR GFR 1.36 MG/DL (0.70-1.30); GLOMERULAR FILTRATION RATE 58.6 (>56); POTASSIUM SERUM 4.3 MEQ/L (3.5-5.1)
== END ==
LOC: M LAB 08:32
PROVIDERS: ATTEND Internal Medicine Endocrinology, Diabetes & Metabolism
DX: E11.65 Type 2 diabetes mellitus with hyperglycemia (principal)

== ENCOUNTER 2022-01-05 14:17 | Emergency (ER) | payer MEDICARE ==
[~2022-01-05] VITALS: Ht 160 cm; Wt 102.0 kg
[2022-01-05 16:19] LABS: HEMATOCRIT 42.4 % (42.0-52.0); HEMOGLOBIN 14.9 g/dl (13.5-17.5); MEAN CORPUSCULAR HEMOGLOBIN 30.8 pg (27.0-33.0); MEAN CORPUSCULAR HGB CONC 35.1 g/dl (32.0-36.5); MEAN CORPUSCULAR VOLUME 87.6 fl (80.0-96.0); PLATELET COUNT, AUTOMATED 225 10^3/uL (150-450); RED BLOOD COUNT 4.84 10^6/uL (4.30-6.10); WHITE BLOOD COUNT 9.5 10^3/uL (4.0-10.0)
[2022-01-05 16:55] LABS: ALBUMIN 3.9 GM/DL (3.2-5.2); BILIRUBIN,DIRECT 0.1 MG/DL (0.0-0.2); BILIRUBIN,TOTAL 0.5 MG/DL (0.2-1.0); TOTAL PROTEIN 8.4 GM/DL (6.4-8.2)
[2022-01-05] MEDS ORDERED: MEPERIDINE 50 MG/ML 1ML VIAL (J2175) IM ONE (17:00)
[2022-01-05] MEDS ORDERED: ONDANSETRON 4MG ORAL DISINTEGRATING TAB PO ONE (17:00)
[2022-01-05] MEDS ORDERED: LIDOCAINE 4% CREAM 5GM (LMX4) TOP ONE (17:10)
[2022-01-05 18:03] LABS: CK-MB VALUE MASS 1.4 NG/ML (<3.6); MB/CK RELATIVE INDEX 1.44 (< OR =4)
[2022-01-05] MEDS ORDERED: fentaNYL 100 MCG/2 ML INJECTION IV ONE (18:05)
[2022-01-05 19:55] LABS: CK-MB VALUE MASS 1.5 NG/ML (<3.6); MB/CK RELATIVE INDEX 0.84 (< OR =4)
[2022-01-05] MEDS ORDERED: CEPHALEXIN 500 MG CAP PO ONE (20:05)
[2022-01-05] MEDS ORDERED: CEPH500C PO (20:11)
[2022-01-05] MEDS ORDERED: HYDR-3713 PO (20:11)
[2022-01-05] MEDS ORDERED: NORCO 5/325MG TABLET (HOME DOSE PACK) PO ONE (20:20)
[2022-01-05 20:26] VITALS: BP 139/89
== END 2022-01-05 20:41 | disposition home or self-care (01) ==
LOC: M ED 14:17
DX: S50.812A Abrasion of left forearm, initial encounter (principal); L03.114 Cellulitis of left upper limb; M25.512 Pain in left shoulder; E11.9 Type 2 diabetes mellitus without complications; I48.91 Unspecified atrial fibrillation; I50.9 Heart failure, unspecified; I25.2 Old myocardial infarction; I10 Essential (primary) hypertension; G47.33 Obstructive sleep apnea (adult) (pediatric); Z87.442 Personal history of urinary calculi; Z79.82 Long term (current) use of aspirin; Z79.84 Long term (current) use of oral hypoglycemic drugs; Z79.899 Other long term (current) drug therapy; Z88.8 Allergy status to other drugs, medicaments and biological substances
CPT/HCPCS: 73030; 80047; 80076; 82550; 82553; 83690; 84484; 85027; 93005; 93971; 96372; 96374; 99284; J2175; J3010

== ENCOUNTER → 2022-02-25 | Outpatient (CLI) | payer MEDICARE ==
[~2022-02-25] MED LIST changes: +CEPH500C PO; +ISOVUE-300 61% 50ML VIAL As Ordered ONE; +LIDOCAINE 1% MDV 20ML VIAL As Ordered ONE
== END ==
LOC: M RADPRO 07:54
PROVIDERS: ATTEND Orthopaedic Surgery
DX: M75.42 Impingement syndrome of left shoulder (principal); S46.012A Strain of muscle(s) and tendon(s) of the rotator cuff of left shoulder, initial encounter; X58.XXXA Exposure to other specified factors, initial encounter; Y92.9 Unspecified place or not applicable
CPT/HCPCS: 23350; 73201; 77002; Q9967

== ENCOUNTER → 2022-03-26 | Outpatient (REF) | payer MEDICARE ==
[~2022-03-26] MED LIST changes: -ISOVUE-300 61% 50ML VIAL As Ordered ONE; -LIDOCAINE 1% MDV 20ML VIAL As Ordered ONE
== END ==
LOC: M LAB REF 16:08
PROVIDERS: ATTEND Family Medicine
DX: E78.2 Mixed hyperlipidemia (principal)

== ENCOUNTER → 2022-06-04 | Outpatient (REF) | payer MEDICARE ==
[2022-06-04 16:49] LABS: INR 0.95; PARTIAL THROMBOPLASTIN TIME 24.6 SECONDS (24.8-34.2); PROTHROMBIN TIME 12.9 SECONDS (12.5-14.5)
[2022-06-04 17:08] LABS: APPEARANCE, URINE MANUAL CLEAR (CLEAR); BILIRUBIN, URINE MANUAL NEGATIVE (NEGATIVE); BLOOD URINE MANUAL NEGATIVE (NEGATIVE); COLOR, URINE MANUAL YELLOW (YELLOW); GLUCOSE, URINE (UA) MANUAL 3+(500 MG/DL) mg/dL (NEGATIVE); KETONE, URINE MANUAL NEGATIVE (NEGATIVE); LEUKOCYTE ESTERASE, URINE MAN NEGATIVE (NEGATIVE); NITRITE, URINE MANUAL NEGATIVE (NEGATIVE); PROTEIN, URINE MANUAL 1+ mg/dL (NEGATIVE); UROBILINOGEN, URINE MANUAL NORMAL (NORMAL)
[2022-06-04 18:14] LABS: BACTERIA, URINE LARGE AMOUNT; MUCUS, URINE LARGE AMOUNT (NEGATIVE); RBC, URINE NONE SEEN /hpf (0-3); SQUAMOUS EPITHELIAL CELL URINE NONE SEEN /hpf (SMALL AMT)
== END ==
LOC: M LAB REF 16:18
PROVIDERS: ATTEND Family Medicine
DX: Z01.818 Encounter for other preprocedural examination (principal); E78.5 Hyperlipidemia, unspecified; I50.9 Heart failure, unspecified; Z79.84 Long term (current) use of oral hypoglycemic drugs

== ENCOUNTER → 2022-07-11 | Outpatient (CLI) | payer MEDICARE ==
[2022-07-11 13:04] LABS: BLOOD UREA NITROGEN 25 MG/DL (9-23); CALCIUM LEVEL 9.2 MG/DL (8.5-10.1); CARBON DIOXIDE LEVEL 23 MMOL/L (20-31); CHLORIDE LEVEL 104 MMOL/L (98-107); CREATININE FOR GFR 1.13 MG/DL (0.70-1.30); GLOMERULAR FILTRATION RATE > 60.0 (>56); GLUCOSE, FASTING 188 MG/DL (60-100); POTASSIUM SERUM 4.6 MMOL/L (3.5-5.1); SODIUM LEVEL 137 MMOL/L (136-145)
== END ==
LOC: M LAB 11:54
PROVIDERS: ATTEND Physician Assistant
DX: I50.22 Chronic systolic (congestive) heart failure (principal)

== ENCOUNTER → 2022-08-14 | Outpatient (CLI) | payer MEDICARE ==
[~2022-08-14] MED LIST changes: +FLUT50SP17 NARES; -FLUTISP NARES
[2022-08-14 09:15] LABS: MAGNESIUM LEVEL 1.4 MG/DL (1.8-2.4)
[2022-08-14 09:30] LABS: TOTAL 25(OH) VITAMIN D 36.4 NG/ML (20.0-100.0)
== END ==
LOC: M LAB 08:16
PROVIDERS: ATTEND Internal Medicine
DX: M79.10 Myalgia, unspecified site (principal)

== ENCOUNTER → 2022-10-17 | Outpatient (CLI) | payer MEDICARE ==
[2022-10-17 07:57] LABS: CALCIUM LEVEL 9.1 MG/DL (8.5-10.1); CREATININE FOR GFR 1.4 MG/DL (0.70-1.30); GLOMERULAR FILTRATION RATE 56.4 (>56); POTASSIUM SERUM 3.9 MMOL/L (3.5-5.1)
== END ==
LOC: M LAB 06:29
PROVIDERS: ATTEND Internal Medicine Nephrology
DX: N18.31 Chronic kidney disease, stage 3a (principal)

== ENCOUNTER → 2022-10-17 | Outpatient (CLI) | payer MEDICARE ==
[2022-10-17 07:56] LABS: CREATININE, URINE 124.7 MG/DL; MAU/CREAT RATIO 27.2 MCG/MG (0.0-30.0)
[2022-10-17 07:57] LABS: BLOOD UREA NITROGEN 27 MG/DL (9-23); CALCIUM LEVEL 9.6 MG/DL (8.5-10.1); CARBON DIOXIDE LEVEL 27 MMOL/L (20-31); CHLORIDE LEVEL 103 MMOL/L (98-107); CHOLESTEROL LEVEL 181 MG/DL (<200); CHOLESTEROL RISK RATIO 7.41 (<5); CREATININE FOR GFR 1.39 MG/DL (0.70-1.30); GLOMERULAR FILTRATION RATE 56.9 (>56); GLUCOSE, FASTING 147 MG/DL (60-100); HDL CHOLESTEROL 24.4 MG/DL (>40); NON-HDL-C 156.6 MG/DL; POTASSIUM SERUM 3.8 MMOL/L (3.5-5.1); SODIUM LEVEL 138 MMOL/L (136-145); TRIGLYCERIDES LEVEL 567 MG/DL (<150)
[2022-10-17 08:20] LABS: HEMOGLOBIN A1c 7.5 % (4.0-6.0)
== END ==
LOC: M LAB 06:36
PROVIDERS: ATTEND Internal Medicine Endocrinology, Diabetes & Metabolism
DX: E11.65 Type 2 diabetes mellitus with hyperglycemia (principal); N18.31 Chronic kidney disease, stage 3a; Z79.4 Long term (current) use of insulin

== ENCOUNTER → 2023-01-15 | Outpatient (REF) | payer MEDICARE, MEDICAID | LOC: M LAB REF 16:25 | PROVIDERS: ATTEND Family Medicine | DX: E78.2 Mixed hyperlipidemia (principal) ==

== ENCOUNTER → 2023-03-07 | Outpatient (CLI) | payer MEDICARE, MEDICAID ==
[2023-03-07 09:50] LABS: HEMOGLOBIN A1c 6.6 % (4.0-6.0)
[2023-03-07 10:10] LABS: CREATININE, URINE 85.7 MG/DL
[2023-03-07 10:11] LABS: MAU/CREAT RATIO 29.1 MCG/MG (0.0-30.0)
[2023-03-07 10:15] LABS: BLOOD UREA NITROGEN 24 MG/DL (9-23); CALCIUM LEVEL 9.5 MG/DL (8.5-10.1); CARBON DIOXIDE LEVEL 28 MMOL/L (20-31); CHLORIDE LEVEL 101 MMOL/L (98-107); CHOLESTEROL LEVEL 205 MG/DL (<200); CHOLESTEROL RISK RATIO 6.54 (<5); CREATININE FOR GFR 1.29 MG/DL (0.70-1.30); GLOMERULAR FILTRATION RATE > 60.0 (>56); GLUCOSE, FASTING 205 MG/DL (60-100); HDL CHOLESTEROL 31.3 MG/DL (>40); NON-HDL-C 173.7 MG/DL; SODIUM LEVEL 139 MMOL/L (136-145); TRIGLYCERIDES LEVEL 579 MG/DL (<150)
== END ==
LOC: M LAB 09:04
PROVIDERS: ATTEND Internal Medicine Endocrinology, Diabetes & Metabolism
DX: E11.65 Type 2 diabetes mellitus with hyperglycemia (principal); Z79.4 Long term (current) use of insulin; E78.2 Mixed hyperlipidemia

== ENCOUNTER → 2023-03-07 | Outpatient (CLI) | payer MEDICARE, MEDICAID | LOC: M LAB 09:02 | PROVIDERS: ATTEND Internal Medicine | DX: E83.42 Hypomagnesemia (principal) ==

== ENCOUNTER → 2023-03-07 | Outpatient (CLI) | payer MEDICARE, MEDICAID ==
[2023-03-07 09:42] LABS: BASO # 0.1 10^3/uL (0.0-0.2); BASO % 0.7 % (0.0-1.0); EOS # 0.4 10^3/uL (0.0-0.5); EOS % 4.2 % (0.0-3.0); HEMATOCRIT 41.3 % (42.0-52.0); HEMOGLOBIN 14.7 g/dl (13.5-17.5); LYMPH # 2.2 10^3/uL (1.5-5.0); LYMPH % 25.9 % (24.0-44.0); MEAN CORPUSCULAR HEMOGLOBIN 33.2 pg (27.0-33.0); MEAN CORPUSCULAR HGB CONC 35.6 g/dl (32.0-36.5); MEAN CORPUSCULAR VOLUME 93.2 fl (80.0-96.0); MONO # 0.7 10^3/uL (0.0-0.8); MONO % 8.2 % (2.0-8.0); NEUTROPHILS # 5.2 10^3/uL (1.5-8.5); NEUTROPHILS % 60.3 % (36.0-66.0); PLATELET COUNT, AUTOMATED 202 10^3/uL (150-450); RED BLOOD COUNT 4.43 10^6/uL (4.30-6.10); WHITE BLOOD COUNT 8.6 10^3/uL (4.0-10.0)
[2023-03-07 09:55] LABS: ERYTHROCYTE SEDIMENTATION RATE 26 mm/hr (0-20)
[2023-03-07 10:09] LABS: C REACTIVE PROTEIN QUANTITATIV < 0.40 MG/DL (<1.0)
[2023-03-07 10:12] LABS: RHEUMATOID FACTOR QUANT < 3.5 IU/ML (<14)
[2023-03-07 10:15] LABS: URIC ACID 10.6 MG/DL (3.7-9.2)
[2023-03-09 14:08] LABS: ANTINUCLEAR ANTIBODIES DIRECT Negative (Negative)
== END ==
LOC: M LAB 08:59
PROVIDERS: ATTEND Physician Assistant
DX: M79.674 Pain in right toe(s) (principal); E83.42 Hypomagnesemia; E11.65 Type 2 diabetes mellitus with hyperglycemia; Z79.4 Long term (current) use of insulin; E78.2 Mixed hyperlipidemia

== ENCOUNTER → 2023-03-19 | Outpatient (CLI) | payer MEDICARE, MEDICAID ==
[2023-03-19 12:37] LABS: HEMATOCRIT 40.7 % (42.0-52.0); HEMOGLOBIN 14.3 g/dl (13.5-17.5); MEAN CORPUSCULAR HEMOGLOBIN 32.9 pg (27.0-33.0); MEAN CORPUSCULAR HGB CONC 35.1 g/dl (32.0-36.5); MEAN CORPUSCULAR VOLUME 93.6 fl (80.0-96.0); PLATELET COUNT, AUTOMATED 214 10^3/uL (150-450); RED BLOOD COUNT 4.35 10^6/uL (4.30-6.10); WHITE BLOOD COUNT 7.9 10^3/uL (4.0-10.0)
[2023-03-19 13:04] LABS: CALCIUM LEVEL 9.3 MG/DL (8.5-10.1); CREATININE FOR GFR 1.35 MG/DL (0.70-1.30); GLOMERULAR FILTRATION RATE 58.6 (>56); POTASSIUM SERUM 4.2 MMOL/L (3.5-5.1)
== END ==
LOC: M LAB 11:52
PROVIDERS: ATTEND Internal Medicine Cardiovascular Disease
DX: I50.22 Chronic systolic (congestive) heart failure (principal); I25.10 Atherosclerotic heart disease of native coronary artery without angina pectoris

== ENCOUNTER 2023-04-03 10:38 | Emergency (ER) | payer MEDICARE, MEDICAID ==
[~2023-04-03] VITALS: Ht 160 cm; Wt 103.1 kg
[2023-04-03 11:58] LABS: BASO # 0.1 10^3/uL (0.0-0.2); BASO % 0.8 % (0.0-1.0); EOS # 1.7 10^3/uL (0.0-0.5); EOS % 17.1 % (0.0-3.0); HEMATOCRIT 39.9 % (42.0-52.0); HEMOGLOBIN 13.9 g/dl (13.5-17.5); LYMPH # 1.9 10^3/uL (1.5-5.0); LYMPH % 18.7 % (24.0-44.0); MEAN CORPUSCULAR HEMOGLOBIN 32.8 pg (27.0-33.0); MEAN CORPUSCULAR HGB CONC 34.8 g/dl (32.0-36.5); MEAN CORPUSCULAR VOLUME 94.1 fl (80.0-96.0); MONO # 0.6 10^3/uL (0.0-0.8); MONO % 6.1 % (2.0-8.0); NEUTROPHILS # 5.8 10^3/uL (1.5-8.5); NEUTROPHILS % 56.4 % (36.0-66.0); PLATELET COUNT, AUTOMATED 183 10^3/uL (150-450); RED BLOOD COUNT 4.24 10^6/uL (4.30-6.10); WHITE BLOOD COUNT 10.2 10^3/uL (4.0-10.0)
[2023-04-03 12:37] LABS: ALBUMIN 3.7 G/DL (3.2-5.2); BILIRUBIN,TOTAL 0.4 MG/DL (0.3-1.2); CALCIUM LEVEL 9.5 MG/DL (8.5-10.1); CREATININE FOR GFR 1.58 MG/DL (0.70-1.30); GLOMERULAR FILTRATION RATE 48.9 (>56); POTASSIUM SERUM 4.2 MMOL/L (3.5-5.1); TOTAL PROTEIN 7.5 G/DL (5.7-8.2)
[2023-04-03] MEDS ORDERED: ISOVUE-370 76% 100ML VIAL As Ordered ONE (12:51)
[2023-04-03] MEDS ORDERED: MAGN400T2 (12:59)
[2023-04-03] MEDS ORDERED: METO1TAB7 (12:59)
[2023-04-03] MEDS ORDERED: FARX1TAB3 (12:59)
[2023-04-03] MEDS ORDERED: TRES1INJ2 (12:59)
[2023-04-03] MEDS ORDERED: GABA-282 (12:59)
[2023-04-03] MEDS ORDERED: SEMA2PEN (12:59)
[2023-04-03] MEDS ORDERED: TORS20TA2 (12:59)
[2023-04-03] MEDS ORDERED: AMOX500T PO (14:05)
[2023-04-03 14:08] VITALS: BP 125/54; TEMP 98.8; O2SAT 97
[2023-04-03] MEDS ORDERED: ACET125EL PO ×2 (14:27→15:49)
== END 2023-04-03 14:29 | disposition home or self-care (01) ==
LOC: M ED 10:38
DX: J21.9 Acute bronchiolitis, unspecified (principal); R07.9 Chest pain, unspecified; R00.0 Tachycardia, unspecified; I45.81 Long QT syndrome; E78.5 Hyperlipidemia, unspecified; I10 Essential (primary) hypertension; E11.9 Type 2 diabetes mellitus without complications; Z86.79 Personal history of other diseases of the circulatory system; Z88.9 Allergy status to unspecified drugs, medicaments and biological substances; Z79.2 Long term (current) use of antibiotics; Z79.02 Long term (current) use of antithrombotics/antiplatelets; Z79.891 Long term (current) use of opiate analgesic; Z79.899 Other long term (current) drug therapy
CPT/HCPCS: 36415; 71046; 71275; 80053; 83605; 83880; 84484; 85025; 87040; 87486; 87581; 87633; 87798; 93005; 99284; Q9967

== ENCOUNTER → 2023-04-20 | Outpatient (CLI) | payer MEDICARE, MEDICAID ==
[~2023-04-20] MED LIST changes: +ACET125EL PO; +AMOX500T PO; +FARX1TAB3; -FLUT50SP17 NARES; +FLUTISP NARES; +GABA-282; +MAGN400T2; +METO1TAB7; +SEMA2PEN; +TORS20TA2; +TRES1INJ2
[2023-04-20 13:41] LABS: BASO % 0.5 % (0.0-1.0); EOS # 0.5 10^3/uL (0.0-0.5); EOS % 7.8 % (0.0-3.0); HEMATOCRIT 40.5 % (42.0-52.0); HEMOGLOBIN 14.3 g/dl (13.5-17.5); LYMPH # 1.7 10^3/uL (1.5-5.0); MEAN CORPUSCULAR HEMOGLOBIN 32.9 pg (27.0-33.0); MEAN CORPUSCULAR HGB CONC 35.3 g/dl (32.0-36.5); MEAN CORPUSCULAR VOLUME 93.1 fl (80.0-96.0); MONO # 0.5 10^3/uL (0.0-0.8); MONO % 8.8 % (2.0-8.0); NEUTROPHILS # 3.2 10^3/uL (1.5-8.5); NEUTROPHILS % 53.6 % (36.0-66.0); PLATELET COUNT, AUTOMATED 194 10^3/uL (150-450); RED BLOOD COUNT 4.35 10^6/uL (4.30-6.10); WHITE BLOOD COUNT 5.9 10^3/uL (4.0-10.0)
[2023-04-20 14:07] LABS: ALKALINE PHOSPHATASE 57 U/L (46-116); ALT/SGPT 37 U/L (7.0-40); AST/SGOT 27 U/L (<34); BILIRUBIN,TOTAL 0.5 MG/DL (0.3-1.2); BLOOD UREA NITROGEN 27 MG/DL (9-23); CALCIUM LEVEL 9.9 MG/DL (8.5-10.1); CARBON DIOXIDE LEVEL 24 MMOL/L (20-31); CHLORIDE LEVEL 103 MMOL/L (98-107); CREATININE FOR GFR 1.26 MG/DL (0.70-1.30); GLOMERULAR FILTRATION RATE > 60.0 (>56); GLUCOSE, FASTING 200 MG/DL (60-100); POTASSIUM SERUM 4.5 MMOL/L (3.5-5.1); SODIUM LEVEL 139 MMOL/L (136-145); TOTAL PROTEIN 8.1 G/DL (5.7-8.2)
== END ==
LOC: M LAB 13:06
PROVIDERS: ATTEND Internal Medicine Interventional Cardiology
DX: R07.9 Chest pain, unspecified (principal); I25.10 Atherosclerotic heart disease of native coronary artery without angina pectoris; I11.0 Hypertensive heart disease with heart failure

== ENCOUNTER 2023-04-26 19:02 | Emergency (ER) | payer MEDICARE, MEDICAID ==
[~2023-04-26] VITALS: Ht 154.9 cm; Wt 103.0 kg
[2023-04-26 19:03] VITALS: TEMP 98
[2023-04-26] MEDS ORDERED: CLOP75TA2 (19:13)
[2023-04-26 20:04] LABS: BASO % 0.7 % (0.0-1.0); EOS # 0.4 10^3/uL (0.0-0.5); EOS % 7.1 % (0.0-3.0); HEMATOCRIT 39.4 % (42.0-52.0); HEMOGLOBIN 13.9 g/dl (13.5-17.5); LYMPH # 1.5 10^3/uL (1.5-5.0); LYMPH % 26.5 % (24.0-44.0); MEAN CORPUSCULAR HEMOGLOBIN 32.6 pg (27.0-33.0); MEAN CORPUSCULAR HGB CONC 35.3 g/dl (32.0-36.5); MEAN CORPUSCULAR VOLUME 92.5 fl (80.0-96.0); MONO # 0.6 10^3/uL (0.0-0.8); MONO % 10.6 % (2.0-8.0); NEUTROPHILS # 3.1 10^3/uL (1.5-8.5); NEUTROPHILS % 54.8 % (36.0-66.0); PLATELET COUNT, AUTOMATED 182 10^3/uL (150-450); RED BLOOD COUNT 4.26 10^6/uL (4.30-6.10); WHITE BLOOD COUNT 5.7 10^3/uL (4.0-10.0)
[2023-04-26 20:22] LABS: INR 1.11
[2023-04-26 20:23] LABS: PARTIAL THROMBOPLASTIN TIME 29.6 SECONDS (24.8-34.2)
[2023-04-26 20:33] LABS: CK-MB VALUE MASS < 1.0 NG/ML (<3.6)
[2023-04-26 20:34] LABS: BLOOD UREA NITROGEN 31 MG/DL (9-23); CALCIUM LEVEL 9.4 MG/DL (8.5-10.1); CARBON DIOXIDE LEVEL 24 MMOL/L (20-31); CHLORIDE LEVEL 100 MMOL/L (98-107); CREATININE FOR GFR 1.53 MG/DL (0.70-1.30); GLOMERULAR FILTRATION RATE 50.7 (>56); GLUCOSE, FASTING 268 MG/DL (60-100); POTASSIUM SERUM 3.7 MMOL/L (3.5-5.1); SODIUM LEVEL 136 MMOL/L (136-145)
[2023-04-26 20:35] LABS: CPK CREATINE PHOSPHOKINASE 83 U/L (46-171)
[2023-04-26 20:40] LABS: RSV AMPLIFICATION NEGATIVE (NEGATIVE)
[2023-04-26 21:34] LABS: CK-MB VALUE MASS < 1.0 NG/ML (<3.6)
[2023-04-26 21:35] LABS: CPK CREATINE PHOSPHOKINASE 71 U/L (46-171)
[2023-04-26] MEDS ORDERED: ISOVUE-370 76% 100ML VIAL As Ordered ONE (21:38)
[2023-04-26] MEDS ORDERED: NS 1,000 ML IV ONE (22:40)
[2023-04-27 01:00] VITALS: BP 112/59; O2SAT 97
== END 2023-04-27 01:00 | disposition home or self-care (01) ==
LOC: M ED 19:02
DX: I95.1 Orthostatic hypotension (principal); R00.0 Tachycardia, unspecified; F10.10 Alcohol abuse, uncomplicated; Z86.79 Personal history of other diseases of the circulatory system; Z88.8 Allergy status to other drugs, medicaments and biological substances; Z79.01 Long term (current) use of anticoagulants; Z79.2 Long term (current) use of antibiotics; Z79.82 Long term (current) use of aspirin; Z79.899 Other long term (current) drug therapy
CPT/HCPCS: 71045; 71275; 80048; 82550; 82553; 83880; 84484; 85025; 85610; 85730; 87631; 93005; 93041; 94760; 96360; 99285; Q9967

== ENCOUNTER → 2023-05-21 | Outpatient (REF) | payer MEDICARE, MEDICAID ==
[~2023-05-21] MED LIST changes: +CLOP75TA2
[2023-05-22 04:07] LABS: LDL DIRECT 77 mg/dL (0-99)
== END ==
LOC: M LAB REF 12:38
PROVIDERS: ATTEND Family Medicine
DX: N18.30 Chronic kidney disease, stage 3 unspecified (principal); E78.2 Mixed hyperlipidemia

== ENCOUNTER → 2023-10-22 | Outpatient (REF) | payer MEDICARE, MEDICAID ==
[~2023-10-22] MED LIST changes: -ASPI-161 PO; +ASPI-615 PO
== END ==
LOC: M LAB REF 11:30
PROVIDERS: ATTEND Family Medicine
DX: M06.9 Rheumatoid arthritis, unspecified (principal); E78.2 Mixed hyperlipidemia

== ENCOUNTER → 2023-10-23 | Outpatient (REF) | payer MEDICARE, MEDICAID | LOC: M LAB REF 12:36 | PROVIDERS: ATTEND Family Medicine | DX: Z11.59 Encounter for screening for other viral diseases (principal) ==

== ENCOUNTER → 2023-12-25 | Outpatient (CLI) | payer MEDICARE, MEDICAID ==
[2023-12-25 07:56] LABS: HEMATOCRIT 42.1 % (42.0-52.0)
[2023-12-25 08:06] LABS: CREATININE, URINE 197.8 MG/DL; MAU/CREAT RATIO 69.2 MCG/MG (0.0-30.0)
[2023-12-25 08:06] LABS: ALBUMIN 3.7 G/DL (3.2-5.2); ALKALINE PHOSPHATASE 56 U/L (46-116); ALT/SGPT 64 U/L (7.0-40); AST/SGOT 37 U/L (<34); BILIRUBIN,TOTAL 0.4 MG/DL (0.3-1.2); BLOOD UREA NITROGEN 11 MG/DL (9-23); CARBON DIOXIDE LEVEL 27 MMOL/L (20-31); CHLORIDE LEVEL 107 MMOL/L (98-107); CREATININE FOR GFR 0.99 MG/DL (0.70-1.30); GLOMERULAR FILTRATION RATE > 60.0 (>56); GLUCOSE, FASTING 143 MG/DL (60-100); SODIUM LEVEL 139 MMOL/L (136-145)
[2023-12-26 08:42] LABS: C-PEPTIDE 6.91 ng/mL (0.80-3.85)
== END ==
LOC: M LAB 06:54
PROVIDERS: ATTEND Registered Nurse
DX: E11.65 Type 2 diabetes mellitus with hyperglycemia (principal); E11.42 Type 2 diabetes mellitus with diabetic polyneuropathy; E11.22 Type 2 diabetes mellitus with diabetic chronic kidney disease

== ENCOUNTER → 2024-03-01 | Outpatient (CLI) | payer MEDICARE, MEDICAID ==
[~2024-03-01] MED LIST changes: +GABA-1172; -GABA-282
== END ==
LOC: M LAB 06:53
PROVIDERS: ATTEND Registered Nurse
DX: E11.65 Type 2 diabetes mellitus with hyperglycemia (principal); Z79.84 Long term (current) use of oral hypoglycemic drugs

== ENCOUNTER 2024-04-04 05:41 | Emergency (ER) | payer MEDICARE, MEDICAID ==
[~2024-04-04] VITALS: Ht 160 cm; Wt 106.3 kg
[2024-04-04] MEDS ORDERED: TIRZ7.5P SQ (05:54)
[2024-04-04] MEDS: ONDANSETRON 4MG 2ML VIAL IV ONE (06:36)
[2024-04-04] MEDS: PERCOCET 5MG/325MG TAB PO ONE ×2 (06:37→09:19)
[2024-04-04 07:03] LABS: BASO # 0.1 10^3/uL (0.0-0.2); BASO % 0.5 % (0.0-1.0); EOS # 0.4 10^3/uL (0.0-0.5); HEMATOCRIT 43.3 % (42.0-52.0); HEMOGLOBIN 15.1 g/dl (13.5-17.5); LYMPH # 2.4 10^3/uL (1.5-5.0); LYMPH % 21.5 % (24.0-44.0); MEAN CORPUSCULAR HEMOGLOBIN 31.3 pg (27.0-33.0); MEAN CORPUSCULAR HGB CONC 34.9 g/dl (32.0-36.5); MEAN CORPUSCULAR VOLUME 89.6 fl (80.0-96.0); MONO % 9.4 % (2.0-8.0); NEUTROPHILS # 7.1 10^3/uL (1.5-8.5); NEUTROPHILS % 64.2 % (36.0-66.0); PLATELET COUNT, AUTOMATED 203 10^3/uL (150-450); RED BLOOD COUNT 4.83 10^6/uL (4.30-6.10); WHITE BLOOD COUNT 11.1 10^3/uL (4.0-10.0)
[2024-04-04 07:22] LABS: INR 0.96; PARTIAL THROMBOPLASTIN TIME 27.8 SECONDS (24.8-34.2); PROTHROMBIN TIME 13.1 SECONDS (12.5-14.5)
[2024-04-04 07:23] LABS: URIC ACID 6.2 MG/DL (3.7-9.2)
[2024-04-04 07:26] LABS: AMYLASE 78 U/L (30-118)
[2024-04-04 07:27] LABS: ALBUMIN 3.6 G/DL (3.2-5.2); ALKALINE PHOSPHATASE 75 U/L (40-129); ALT/SGPT 18 U/L (7.0-40); AST/SGOT < 8 U/L (<34); BILIRUBIN,DIRECT 0.2 MG/DL (<0.4); BILIRUBIN,TOTAL 0.7 MG/DL (0.3-1.2); BLOOD UREA NITROGEN 15 MG/DL (9-23); CALCIUM LEVEL 9.2 MG/DL (8.5-10.1); CARBON DIOXIDE LEVEL 26 MMOL/L (20-31); CHLORIDE LEVEL 104 MMOL/L (98-107); CREATININE FOR GFR 1.11 MG/DL (0.70-1.30); GLOMERULAR FILTRATION RATE > 60.0 (>56); GLUCOSE, FASTING 144 MG/DL (60-100); POTASSIUM SERUM 4.1 MMOL/L (3.5-5.1); SODIUM LEVEL 138 MMOL/L (136-145); TOTAL PROTEIN 7.7 G/DL (5.7-8.2)
[2024-04-04 07:38] LABS: PROCALCITONIN 0.07 ng/ml
[2024-04-04 08:20] LABS: APPEARANCE, URINE CLEAR (CLEAR); BACTERIA, URINE AUTO NEGATIVE (NEGATIVE); BILIRUBIN, URINE AUTO NEGATIVE (NEGATIVE); BLOOD, URINE BLOOD NEGATIVE (NEGATIVE); COLOR, URINE YELLOW (YELLOW); GLUCOSE, URINE (UA) AUTO 3+ mg/dL (NEGATIVE); KETONE, URINE AUTO NEGATIVE (NEGATIVE); LEUKOCYTE ESTERASE, URINE AUTO NEGATIVE (NEGATIVE); MUCUS, URINE SMALL (NEGATIVE); NITRITE, URINE AUTO NEGATIVE (NEGATIVE); PROTEIN, URINE AUTO 1+ mg/dL (NEGATIVE); RBC, URINE AUTO 0 /HPF (0-3); SPECIFIC GRAVITY URINE AUTO 1.022 (1.002-1.035); SQUAMOUS EPITHELIAL CELL UR AU 0 /HPF (0-6); UROBILINOGEN, URINE AUTO 0.2 mg/dL (0.0-2.0); WBC, URINE AUTO 0 /HPF (0-3)
[2024-04-04] MEDS ORDERED: MIRA3350 PO (08:49)
[2024-04-04] MEDS ORDERED: PERC5TAB12 PO (08:49)
[2024-04-04] MEDS ORDERED: PRED20TA PO (08:49)
[2024-04-04] MEDS: methylPREDNISolone 125MG 2ML VIAL IV ONE (09:19)
[2024-04-04 09:30] VITALS: BP 122/63; TEMP 98; O2SAT 95
== END 2024-04-04 09:45 | disposition home or self-care (01) ==
LOC: M ED 05:41
DX: M02.331 Reiter's disease, right wrist (principal); G47.30 Sleep apnea, unspecified; E11.9 Type 2 diabetes mellitus without complications; N18.9 Chronic kidney disease, unspecified; J44.9 Chronic obstructive pulmonary disease, unspecified; Z79.01 Long term (current) use of anticoagulants; Z87.442 Personal history of urinary calculi; Z86.79 Personal history of other diseases of the circulatory system; Z79.82 Long term (current) use of aspirin; Z79.02 Long term (current) use of antithrombotics/antiplatelets; Z79.52 Long term (current) use of systemic steroids; Z79.899 Other long term (current) drug therapy; Z88.8 Allergy status to other drugs, medicaments and biological substances
CPT/HCPCS: 73110; 80048; 80076; 81001; 82150; 83605; 84145; 84550; 85025; 85610; 85730; 86140; 86850; 86900; 86901; 87040; 87088; 87186; 93041; 94760; 96374; 96375; 99285; J2405; J2919

== ENCOUNTER → 2024-04-05 | Outpatient (CLI) | payer MEDICARE, MEDICAID ==
[~2024-04-05] MED LIST changes: +MIRA3350 PO; +PERC5TAB12 PO; +PRED20TA PO; +TIRZ7.5P SQ
[2024-04-05 10:50] LABS: ALBUMIN 3.4 G/DL (3.2-5.2); ALKALINE PHOSPHATASE 63 U/L (40-129); ALT/SGPT 15 U/L (7.0-40); AST/SGOT < 8 U/L (<34); BILIRUBIN,TOTAL 0.4 MG/DL (0.3-1.2); BLOOD UREA NITROGEN 27 MG/DL (9-23); CALCIUM LEVEL 9.4 MG/DL (8.5-10.1); CARBON DIOXIDE LEVEL 22 MMOL/L (20-31); CHLORIDE LEVEL 105 MMOL/L (98-107); CREATININE FOR GFR 1.16 MG/DL (0.70-1.30); GLOMERULAR FILTRATION RATE > 60.0 (>56); GLUCOSE, FASTING 357 MG/DL (60-100); POTASSIUM SERUM 4.3 MMOL/L (3.5-5.1); SODIUM LEVEL 139 MMOL/L (136-145); TOTAL PROTEIN 7.2 G/DL (5.7-8.2)
== END ==
LOC: M LAB 09:18
PROVIDERS: ATTEND Registered Nurse
DX: E11.65 Type 2 diabetes mellitus with hyperglycemia (principal)

== ENCOUNTER → 2024-05-17 | Outpatient (CLI) | payer MEDICARE, MEDICAID ==
[2024-05-17 10:10] LABS: HEMOGLOBIN A1c 7.4 % (4.0-6.0)
[2024-05-17 10:25] LABS: ALBUMIN 3.9 G/DL (3.2-5.2); ALKALINE PHOSPHATASE 64 U/L (40-129); ALT/SGPT 34 U/L (7.0-40); AST/SGOT 18 U/L (<34); BILIRUBIN,TOTAL 0.7 MG/DL (0.3-1.2); BLOOD UREA NITROGEN 17 MG/DL (9-23); CALCIUM LEVEL 9.8 MG/DL (8.5-10.1); CARBON DIOXIDE LEVEL 29 MMOL/L (20-31); CHLORIDE LEVEL 107 MMOL/L (98-107); CHOLESTEROL LEVEL 178 MG/DL (<200); CHOLESTEROL RISK RATIO 4.61 (<5); CREATININE FOR GFR 1.17 MG/DL (0.70-1.30); GLOMERULAR FILTRATION RATE > 60.0 (>56); GLUCOSE, FASTING 171 MG/DL (60-100); HDL CHOLESTEROL 38.6 MG/DL (>40); LDL CHOLESTEROL 82.8 MG/DL (<100); NON-HDL-C 139.4 MG/DL; POTASSIUM SERUM 4.2 MMOL/L (3.5-5.1); SODIUM LEVEL 144 MMOL/L (136-145); TOTAL PROTEIN 7.4 G/DL (5.7-8.2); TRIGLYCERIDES LEVEL 283 MG/DL (<150)
[2024-05-17 11:54] LABS: MAU/CREAT RATIO 122.4 MCG/MG (0.0-30.0)
== END ==
LOC: M LAB 09:04
PROVIDERS: ATTEND Registered Nurse
DX: E11.65 Type 2 diabetes mellitus with hyperglycemia (principal)

== ENCOUNTER → 2024-06-27 | Outpatient (CLI) | payer MEDICARE, MEDICAID | LOC: M LAB 10:05 | PROVIDERS: ATTEND Registered Nurse | DX: E11.65 Type 2 diabetes mellitus with hyperglycemia (principal) ==

== ENCOUNTER → 2024-07-01 | Outpatient (REF) | payer MEDICARE, MEDICAID | LOC: M LAB REF 14:00 | PROVIDERS: ATTEND Family Medicine | DX: R19.7 Diarrhea, unspecified (principal) ==

== ENCOUNTER → 2024-07-08 | Outpatient (REF) | payer MEDICARE, MEDICAID ==
[2024-07-10 07:12] LABS: LDL DIRECT 84 mg/dL (<100)
== END ==
LOC: M LAB REF 16:27
PROVIDERS: ATTEND Family Medicine
DX: E78.00 Pure hypercholesterolemia, unspecified (principal)

== ENCOUNTER → 2024-07-13 | Outpatient (CLI) | payer MEDICARE, MEDICAID | LOC: M RAD 07:04 | PROVIDERS: ATTEND Pain Medicine Interventional Pain Medicine | DX: M54.2 Cervicalgia (principal) ==

== ENCOUNTER → 2024-08-05 | Outpatient (CLI) | payer MEDICARE, MEDICAID ==
[2024-08-05 08:38] LABS: ALBUMIN 3.5 G/DL (3.2-5.2); ALKALINE PHOSPHATASE 52 U/L (40-129); ALT/SGPT 35 U/L (7.0-40); AST/SGOT 25 U/L (<34); BILIRUBIN,TOTAL 0.5 MG/DL (0.3-1.2); BLOOD UREA NITROGEN 14 MG/DL (9-23); CALCIUM LEVEL 8.8 MG/DL (8.5-10.1); CARBON DIOXIDE LEVEL 28 MMOL/L (20-31); CHLORIDE LEVEL 107 MMOL/L (98-107); CREATININE FOR GFR 1.21 MG/DL (0.70-1.30); GLOMERULAR FILTRATION RATE > 60.0 (>56); GLUCOSE, FASTING 172 MG/DL (60-100); SODIUM LEVEL 144 MMOL/L (136-145); TOTAL PROTEIN 6.7 G/DL (5.7-8.2)
== END ==
LOC: M LAB 07:18
PROVIDERS: ATTEND Registered Nurse
DX: E11.65 Type 2 diabetes mellitus with hyperglycemia (principal); N18.31 Chronic kidney disease, stage 3a

== ENCOUNTER → 2024-08-05 | Outpatient (CLI) | payer MEDICARE, MEDICAID ==
[2024-08-05 08:48] LABS: BLOOD UREA NITROGEN 15 MG/DL (9-23); CALCIUM LEVEL 8.5 MG/DL (8.5-10.1); CARBON DIOXIDE LEVEL 28 MMOL/L (20-31); CHLORIDE LEVEL 105 MMOL/L (98-107); CREATININE FOR GFR 1.18 MG/DL (0.70-1.30); GLOMERULAR FILTRATION RATE > 60.0 (>56); GLUCOSE, FASTING 176 MG/DL (60-100); POTASSIUM SERUM 4.1 MMOL/L (3.5-5.1); SODIUM LEVEL 141 MMOL/L (136-145)
== END ==
LOC: M LAB 07:21
PROVIDERS: ATTEND Physician Assistant
DX: N18.31 Chronic kidney disease, stage 3a (principal)

== ENCOUNTER → 2024-08-18 | Outpatient (CLI) | payer MEDICARE, MEDICAID ==
[2024-08-18 09:48] LABS: CALCIUM LEVEL 9.5 MG/DL (8.5-10.1); CREATININE FOR GFR 1.28 MG/DL (0.70-1.30); GLOMERULAR FILTRATION RATE 66.1 (>56); POTASSIUM SERUM 4.4 MMOL/L (3.5-5.1)
== END ==
LOC: M LAB 08:43
PROVIDERS: ATTEND Internal Medicine Cardiovascular Disease
DX: I50.22 Chronic systolic (congestive) heart failure (principal)

== ENCOUNTER → 2024-09-29 | Outpatient (CLI) | payer MEDICARE, MEDICAID | LOC: M RAD 14:57 | PROVIDERS: ATTEND Internal Medicine Cardiovascular Disease | DX: I65.23 Occlusion and stenosis of bilateral carotid arteries (principal) ==

== ENCOUNTER → 2024-11-14 | Outpatient (CLI) | payer MEDICARE, MEDICAID | LOC: M RAD 07:11 | PROVIDERS: ATTEND Pain Medicine Interventional Pain Medicine | DX: M47.817 Spondylosis without myelopathy or radiculopathy, lumbosacral region (principal); M25.78 Osteophyte, vertebrae; M48.061 Spinal stenosis, lumbar region without neurogenic claudication ==

== ENCOUNTER → 2024-11-23 | Outpatient (REF) | payer MEDICARE, MEDICAID | LOC: M LAB REF 06:47 | PROVIDERS: ATTEND Registered Nurse | DX: E11.65 Type 2 diabetes mellitus with hyperglycemia (principal) ==

== ENCOUNTER → 2025-01-12 | Outpatient (REF) | payer MEDICARE, MEDICAID ==
[2025-01-13 07:32] LABS: LDL DIRECT 70 mg/dL (<100)
== END ==
LOC: M LAB REF 12:23
PROVIDERS: ATTEND Family Medicine
DX: E78.2 Mixed hyperlipidemia (principal)

== ENCOUNTER → 2025-04-25 | Outpatient (CLI) | payer MEDICARE, MEDICAID ==
[2025-04-25 12:15] LABS: ALT/SGPT 28.0 U/L (7.0-40); AST/SGOT 22.0 U/L (<34); CALCIUM LEVEL 8.8 MG/DL (8.5-10.1); CARBON DIOXIDE LEVEL 24.0 MMOL/L (20-31); CHLORIDE LEVEL 105.0 MMOL/L (98-107); CREATININE FOR GFR 1.1 MG/DL (0.70-1.30); ESTIMATED AVERAGE GLUCOSE 157.0 MG/DL (60-110); GLOMERULAR FILTRATION RATE 78.8 (>56); POTASSIUM SERUM 3.8 MMOL/L (3.5-5.1); SODIUM LEVEL 140.0 MMOL/L (136-145)
== END ==
LOC: M LAB 10:41
PROVIDERS: ATTEND Registered Nurse
DX: E11.65 Type 2 diabetes mellitus with hyperglycemia (principal)